=== PATIENT | male | born 1975 | race African-American/Black ===

== ENCOUNTER 2017-06-05 21:10 | Emergency (ER) | payer OTHER ==
[~2017-06-05] VITALS: Ht 165.1 cm; Wt 58.1 kg
[~2017-06-05 21:10] MED LIST: CARV6.25 PO; FERR-26 PO
[2017-06-06 01:30] VITALS: BP 177/109
[2017-06-06] MEDS ORDERED: AZIT250T6 PO (01:44)
--- NOTE | 2017-06-06 01:44 | PHYS DOC ---
Past Medical History Past Medical History: Asthma, Hypertension, Renal Failure, Other Additional Past Medical Histor: Focal glomerulosclerosis, kidney failure 2007 Past Surgical History: Other Additional Past Surgical Histo: "tube in neck"-removed,dialysis shunt right arm ,lft kidney transplant 2009 Alcohol Use: Sober Drug Use: None Adult General Chief Complaint Chief Complaint: COUGH HPI HPI Patient is a 41 year old [f__sex] who presents with [] Review of Systems Review of Systems Constitutional: Denies fever or chills [] Eyes: Denies change in visual acuity, redness, or eye pain [] HENT: Denies nasal congestion or sore throat [] Respiratory: Denies cough or shortness of breath [] Cardiovascular: No additional information not addressed in HPI [] GI: Denies abdominal pain, nausea, vomiting, bloody stools or diarrhea [] : Denies dysuria or hematuria [] Musculoskeletal: Denies back pain or joint pain [] Integument: Denies rash or skin lesions [] Neurologic: Denies headache, focal weakness or sensory changes [] Endocrine: Denies polyuria or polydipsia [] All other systems were reviewed and found to be within normal limits, except as documented in this note. Allergies Allergies Allergies Coded Allergies Type Severity Reaction Last Updated Verified No Known Drug Allergies 05/08/17 No Physical Exam Physical Exam Constitutional: Well developed, well nourished, no acute distress, non-toxic appearance. [] HENT: Normocephalic, atraumatic, bilateral external ears normal, oropharynx moist, no oral exudates, nose normal. [] Eyes: PERRLA, EOMI, conjunctiva normal, no discharge. [] Neck: Normal range of motion, no tenderness, supple, no stridor. [] Cardiovascular:Heart rate regular rhythm, no murmur [] Lungs & Thorax: Bilateral breath sounds clear to auscultation [] Abdomen: Bowel sounds normal, soft, no tenderness, no masses, no pulsatile masses. [] Skin: Warm, dry, no erythema, no rash. [] Back: No tenderness, no CVA tenderness. [] Extremities: No tenderness, no cyanosis, no clubbing, ROM intact, no edema. [] Neurologic: Alert and oriented X 3, normal motor function, normal sensory function, no focal deficits noted. [] Psychologic: Affect normal, judgement normal, mood normal. [] Current Patient Data Vital Signs Vital Signs Date Time Temp Pulse Resp B/P (MAP) Pulse Ox O2 Delivery O2 Flow Rate FiO2 06/05/17 21:28 98.2 108 22 168/116 (133) 95 Room Air 98.2 EKG EKG [] Radiology/Procedures Radiology/Procedures [] Course & Med Decision Making Course & Med Decision Making Pertinent Labs and Imaging studies reviewed. (See chart for details) [] Dragon Disclaimer Dragon Disclaimer This electronic medical record was generated, in whole or in part, using a voice recognition dictation system. Departure Departure Impression: Primary Impression: Atypical pneumonia Disposition: HOME, SELF-CARE Condition: GOOD Referrals: DAVID DUPONT MD (PCP) Patient Instructions: Upper Respiratory Infection, Adult Additional Instructions: Your pulmonary infection with persistent chronic cough appears to be consistent with either viral upper respiratory infection versus possible atypical pneumonia which is also called walking pneumonia. If it's viral it will get better on its own if it's an atypical infection it will respond to Zithromax for which you have been given a prescription. Take Mucinex DM [id number] as needed. Follow-up with your doctor tomorrow and return immediately for new severe or worsening symptoms Scripts Azithromycin (AZITHROMYCIN TABLET) 250 Mg Tablet 1 PKG PO UD, #6 TAB Take 2 pills the first day and one pill a day for the following 4 days Prov: CLEM MENDEZ MD 06/06/17 CLEM MENDEZ MD Jun 06, 2017 01:44
--- NOTE | 2017-06-06 08:43 | RAD ---
EXAM: Chest one view. HISTORY: Cough. COMPARISON: 05/11/2017. FINDINGS: A frontal view of the chest is obtained. There are no confluent infiltrates. Trace pleural effusions are likely present. There is no pneumothorax. The heart is moderately enlarged. Vascular clips are noted in the right upper arm. IMPRESSION: 1. Moderate cardiomegaly. Trace bilateral pleural effusions.
[2017-06-06 09:14] LABS: POTASSIUM ISTAT 3.2 mmol/L (3.5-5.0)
== END 2017-06-06 02:17 | disposition home or self-care (01) ==
LOC: ER 21:10
DX: J18.9 Pneumonia, unspecified organism (principal); J45.909 Unspecified asthma, uncomplicated; I12.9 Hypertensive chronic kidney disease with stage 1 through stage 4 chronic kidney disease, or unspecified chronic kidney disease; N18.9 Chronic kidney disease, unspecified; Z94.0 Kidney transplant status
CPT/HCPCS: 36415; 71010; 80047; 85014; 85018; 99284-25

== ENCOUNTER 2017-12-10 09:00 | Inpatient (IN) | payer OTHER ==
[2017-12-10 10:11] LABS: ADD MAN DIFF? NO
[2017-12-10 10:14] LABS: BASO % 1 % (0-3); EOS # 0.2 x10^3/uL (0.0-0.7); EOS % 3 % (0-3); HEMATOCRIT 36.3 % (39.0-53.0); HEMOGLOBIN 12.1 g/dL (13.0-17.5); LYMPH # 1.5 x10^3/uL (1.0-4.8); LYMPH % 25 % (24-48); MEAN CORPUSCULAR HEMOGLOBIN 32 pg (25-35); MEAN CORPUSCULAR HGB CONC 33 g/dL (31-37); MEAN CORPUSCULAR VOLUME 95 fL (79-100); MONO # 0.6 x10^3/uL (0.0-1.1); MONO % 11 % (0-9); NEUT # 3.7 x10^3uL (1.8-7.7); NEUT % 60 % (31-73); PLATELET COUNT 212 x10^3/uL (140-400); RED BLOOD COUNT 3.82 x10^6/uL (4.30-5.70); RED CELL DISTRIBUTION WIDTH 16.3 % (11.5-14.5); WHITE BLOOD COUNT 6.1 x10^3/uL (4.0-11.0)
[2017-12-10 10:30] LABS: ANION GAP 11 (6-14); BLOOD UREA NITROGEN 67 mg/dL (8-26); BUN/CREATININE RATIO 7 (6-20); CALCIUM 9.5 mg/dL (8.5-10.1); CARBON DIOXIDE 27 mmol/L (21-32); CHLORIDE 101 mmol/L (98-107); GFR 7.1; GLUCOSE 127 mg/dL (70-99); POTASSIUM 3.7 mmol/L (3.5-5.1); SODIUM 139 mmol/L (136-145)
[2017-12-10 10:36] LABS: LACTIC ACID 0.9 mmol/L (0.4-2.0)
[2017-12-10 10:41] LABS: TROPONINI 0.168 ng/mL (0.000-0.055)
[2017-12-10 10:43] LABS: ALBUMIN/GLOBULIN RATIO 0.6 (1.0-1.7); ALK PHOS 209 U/L (46-116); ALT (SGPT) 25 U/L (16-63); AST (SGOT) 28 U/L (15-37); TOTAL BILIRUBIN 0.8 mg/dL (0.2-1.0); TOTAL PROTEIN 8.1 g/dL (6.4-8.2)
[2017-12-10] MEDS: IPRATRPIUM/ALBUTEROL 0.5/2.5MG 3 ML NEBU. NEB ×3 (10:48→19:58)
[2017-12-10] MEDS: guaiFENesin/CODEINE 100mg/10mg 5 ML LIQUID PO (10:56)
[2017-12-10] MEDS ORDERED: ACETAMINOPHEN 325 MG TABLET. PO (11:00)
[2017-12-10] MEDS ORDERED: ONDANSETRON PF 4 MG/2 ML VIAL. IV (11:00)
[2017-12-10 11:18] LABS: NT-PRO BNP > 35000 pg/mL (0-124)
[2017-12-10] MEDS ORDERED: MAGNESIUM SULFATE 2GM 50 ML IV (13:00)
[2017-12-10] MEDS ORDERED: CONTRAST GIVEN. MC (13:15)
[2017-12-10] MEDS: IOHEXOL 300 MG/ML 100ML VIAL. IV (13:26)
[2017-12-10] MEDS ORDERED: BENZOCAINE/MENTHOL LOZENGE. PO (13:30)
[2017-12-10] MEDS: FLUTICASONE 50MCG/NASAL SPRAY 16GM BOTTLE. NS (14:38)
[2017-12-10] MEDS: CHOLECALCIFEROL (VITAMIN D3) 1,000 UNIT TABLET PO (14:38)
[2017-12-10] MEDS: AZITHROMYCIN 250 MG TABLET. PO (14:39)
[2017-12-10] MEDS: LISINOPRIL 20 MG TABLET PO (14:41)
[2017-12-10] MEDS: amLODIPine BESYLATE 5 MG TABLET PO (14:41)
[2017-12-10 14:48] LABS: TROPONINI 0.161 ng/mL (0.000-0.055)
[2017-12-10] MEDS: CALCIUM ACETATE 667 MG CAPSULE PO (17:23)
[2017-12-10] MEDS: CARVEDILOL 12.5 MG TABLET. PO (17:23)
[2017-12-10 17:27] LABS: TROPONINI 0.162 ng/mL (0.000-0.055)
[2017-12-10] MEDS: LACTOBACILLUS RHAMNOSUS GG 1 CAPSULE. PO (20:40)
[2017-12-11] MEDS: ONDANSETRON ODT 4 MG TAB.RAPDIS. PO (02:42)
[2017-12-11 07:32] LABS: ALBUMIN 2.7 g/dL (3.4-5.0); ANION GAP 9 (6-14); BLOOD UREA NITROGEN 73 mg/dL (8-26); CALCIUM 8.9 mg/dL (8.5-10.1); CARBON DIOXIDE 25 mmol/L (21-32); CHLORIDE 102 mmol/L (98-107); CREATININE 11.1 mg/dL (0.7-1.3); GFR 6.3; GLUCOSE 98 mg/dL (70-99); MAGNESIUM 2.4 mg/dL (1.8-2.4); PHOSPHORUS 7.5 mg/dL (2.6-4.7); SODIUM 136 mmol/L (136-145)
[2017-12-11] MEDS: IPRATRPIUM/ALBUTEROL 0.5/2.5MG 3 ML NEBU. NEB ×4 (08:01→20:11)
[2017-12-11] MEDS: CHOLECALCIFEROL (VITAMIN D3) 1,000 UNIT TABLET PO (08:16)
[2017-12-11] MEDS: CALCIUM ACETATE 667 MG CAPSULE PO ×3 (08:16→20:39)
[2017-12-11] MEDS: LACTOBACILLUS RHAMNOSUS GG 1 CAPSULE. PO ×2 (08:16→20:39)
[2017-12-11] MEDS: amLODIPine BESYLATE 5 MG TABLET PO (08:17)
[2017-12-11] MEDS: LISINOPRIL 20 MG TABLET PO (08:17)
[2017-12-11] MEDS: CARVEDILOL 12.5 MG TABLET. PO ×2 (08:18→20:39)
[2017-12-11] MEDS: FLUTICASONE 50MCG/NASAL SPRAY 16GM BOTTLE. NS (08:18)
[2017-12-11] MEDS: AZITHROMYCIN 250 MG TABLET. PO (08:20)
[2017-12-11 08:21] LABS: HEMOGLOBIN 11.3 g/dL (13.0-17.5)
[2017-12-11] MEDS ORDERED: IV NORMAL SALINE 1000ML BAG 1,000 ML IV ×2 (15:30)
[2017-12-11] MEDS ORDERED: DIALYSIS PATIENT. MC ×2 (17:15)
[2017-12-12 04:31] LABS: ALBUMIN 2.6 g/dL (3.4-5.0); ANION GAP 6 (6-14); CALCIUM 8.7 mg/dL (8.5-10.1); CARBON DIOXIDE 30 mmol/L (21-32); CHLORIDE 103 mmol/L (98-107); CREATININE 7.2 mg/dL (0.7-1.3); GFR 10.3; GLUCOSE 115 mg/dL (70-99); MAGNESIUM 2.2 mg/dL (1.8-2.4); PHOSPHORUS 5.5 mg/dL (2.6-4.7); POTASSIUM 4.4 mmol/L (3.5-5.1); SODIUM 139 mmol/L (136-145)
[2017-12-12 04:32] LABS: BLOOD UREA NITROGEN 40 mg/dL (8-26)
[2017-12-12] MEDS: IPRATRPIUM/ALBUTEROL 0.5/2.5MG 3 ML NEBU. NEB ×4 (07:31→20:26)
[2017-12-12] MEDS: CALCIUM ACETATE 667 MG CAPSULE PO ×3 (08:38→16:36)
[2017-12-12] MEDS: LISINOPRIL 20 MG TABLET PO (08:38)
[2017-12-12] MEDS: LACTOBACILLUS RHAMNOSUS GG 1 CAPSULE. PO ×2 (08:38→21:40)
[2017-12-12] MEDS: CHOLECALCIFEROL (VITAMIN D3) 1,000 UNIT TABLET PO (08:39)
[2017-12-12] MEDS: amLODIPine BESYLATE 5 MG TABLET PO (08:39)
[2017-12-12] MEDS: AZITHROMYCIN 250 MG TABLET. PO (08:39)
[2017-12-12] MEDS: CARVEDILOL 12.5 MG TABLET. PO ×2 (08:39→16:36)
[2017-12-12] MEDS: FLUTICASONE 50MCG/NASAL SPRAY 16GM BOTTLE. NS (08:41)
[2017-12-12] MEDS: methylPREDNISolone SOD SUCC PF 125 MG/2 ML VIAL. IV ×2 (17:06→21:40)
[2017-12-13 05:28] LABS: ALBUMIN 2.7 g/dL (3.4-5.0); ANION GAP 9 (6-14); BLOOD UREA NITROGEN 65 mg/dL (8-26); CALCIUM 9.7 mg/dL (8.5-10.1); CARBON DIOXIDE 27 mmol/L (21-32); CHLORIDE 96 mmol/L (98-107); CREATININE 9.2 mg/dL (0.7-1.3); GFR 7.8; GLUCOSE 178 mg/dL (70-99); MAGNESIUM 2.1 mg/dL (1.8-2.4); PHOSPHORUS 4.9 mg/dL (2.6-4.7); POTASSIUM 4.7 mmol/L (3.5-5.1); SODIUM 132 mmol/L (136-145)
[2017-12-13] MEDS: methylPREDNISolone SOD SUCC PF 125 MG/2 ML VIAL. IV ×3 (06:02→20:47)
[2017-12-13] MEDS: IPRATRPIUM/ALBUTEROL 0.5/2.5MG 3 ML NEBU. NEB ×4 (06:56→19:50)
[2017-12-13] MEDS: CARVEDILOL 12.5 MG TABLET. PO ×2 (08:00→17:29)
[2017-12-13] MEDS: CHOLECALCIFEROL (VITAMIN D3) 1,000 UNIT TABLET PO (08:28)
[2017-12-13] MEDS: CALCIUM ACETATE 667 MG CAPSULE PO ×3 (08:28→17:28)
[2017-12-13] MEDS: LACTOBACILLUS RHAMNOSUS GG 1 CAPSULE. PO ×2 (08:29→20:47)
[2017-12-13] MEDS: FLUTICASONE 50MCG/NASAL SPRAY 16GM BOTTLE. NS (08:29)
[2017-12-13] MEDS ORDERED: IV NORMAL SALINE 1000ML BAG 1,000 ML IV ×2 (09:00)
[2017-12-13] MEDS ORDERED: DIALYSIS PATIENT. MC ×2 (12:30)
[2017-12-13] MEDS: AZITHROMYCIN 250 MG TABLET. PO (14:05)
[2017-12-13] MEDS: amLODIPine BESYLATE 5 MG TABLET PO (14:06)
[2017-12-13] MEDS: LISINOPRIL 20 MG TABLET PO (14:07)
[2017-12-14] MEDS: methylPREDNISolone SOD SUCC PF 125 MG/2 ML VIAL. IV ×3 (05:20→21:19)
[2017-12-14 05:58] LABS: ALBUMIN 2.8 g/dL (3.4-5.0); ANION GAP 10 (6-14); BLOOD UREA NITROGEN 59 mg/dL (8-26); CALCIUM 8.7 mg/dL (8.5-10.1); CARBON DIOXIDE 28 mmol/L (21-32); CHLORIDE 97 mmol/L (98-107); CREATININE 6.9 mg/dL (0.7-1.3); GFR 10.8; GLUCOSE 139 mg/dL (70-99); MAGNESIUM 2.1 mg/dL (1.8-2.4); PHOSPHORUS 4.8 mg/dL (2.6-4.7); POTASSIUM 4.9 mmol/L (3.5-5.1); SODIUM 135 mmol/L (136-145)
[2017-12-14] MEDS: IPRATRPIUM/ALBUTEROL 0.5/2.5MG 3 ML NEBU. NEB ×4 (07:06→19:56)
[2017-12-14] MEDS: CHOLECALCIFEROL (VITAMIN D3) 1,000 UNIT TABLET PO (08:55)
[2017-12-14] MEDS: CARVEDILOL 12.5 MG TABLET. PO ×2 (08:56→17:36)
[2017-12-14] MEDS: AZITHROMYCIN 250 MG TABLET. PO (08:56)
[2017-12-14] MEDS: LACTOBACILLUS RHAMNOSUS GG 1 CAPSULE. PO ×2 (08:56→21:18)
[2017-12-14] MEDS: CALCIUM ACETATE 667 MG CAPSULE PO ×3 (08:56→17:33)
[2017-12-14] MEDS: LISINOPRIL 20 MG TABLET PO (08:57)
[2017-12-14] MEDS: amLODIPine BESYLATE 5 MG TABLET PO (08:57)
[2017-12-14] MEDS: FLUTICASONE 50MCG/NASAL SPRAY 16GM BOTTLE. NS (09:03)
[2017-12-15 04:53] LABS: ALBUMIN 2.7 g/dL (3.4-5.0); ANION GAP 10 (6-14); BLOOD UREA NITROGEN 83 mg/dL (8-26); CALCIUM 8.7 mg/dL (8.5-10.1); CARBON DIOXIDE 25 mmol/L (21-32); CHLORIDE 93 mmol/L (98-107); CREATININE 8.2 mg/dL (0.7-1.3); GFR 8.9; GLUCOSE 153 mg/dL (70-99); PHOSPHORUS 5.7 mg/dL (2.6-4.7); POTASSIUM 5.1 mmol/L (3.5-5.1); SODIUM 128 mmol/L (136-145)
[2017-12-15] MEDS: methylPREDNISolone SOD SUCC PF 125 MG/2 ML VIAL. IV ×3 (06:16→21:08)
[2017-12-15] MEDS: CARVEDILOL 12.5 MG TABLET. PO ×2 (08:00→17:49)
[2017-12-15] MEDS: CHOLECALCIFEROL (VITAMIN D3) 1,000 UNIT TABLET PO (08:49)
[2017-12-15] MEDS: CALCIUM ACETATE 667 MG CAPSULE PO ×3 (08:49→17:49)
[2017-12-15] MEDS: LACTOBACILLUS RHAMNOSUS GG 1 CAPSULE. PO ×2 (08:50→21:08)
[2017-12-15] MEDS: FLUTICASONE 50MCG/NASAL SPRAY 16GM BOTTLE. NS (08:50)
[2017-12-15] MEDS: amLODIPine BESYLATE 5 MG TABLET PO (09:00)
[2017-12-15] MEDS: LISINOPRIL 20 MG TABLET PO (09:00)
[2017-12-15] MEDS: ALBUTEROL SULFATE 2.5 MG/3 ML NEBU. NEB (09:16)
[2017-12-15] MEDS: IPRATRPIUM/ALBUTEROL 0.5/2.5MG 3 ML NEBU. NEB ×3 (12:39→20:35)
[2017-12-15] MEDS ORDERED: IV NORMAL SALINE 1000ML BAG 1,000 ML IV ×2 (13:54)
[2017-12-15] MEDS ORDERED: DIALYSIS PATIENT. MC ×2 (14:00)
[2017-12-15 17:39] LABS: POC GLUCOSE 121 mg/dL (70-99)
[2017-12-15 21:14] LABS: POC GLUCOSE 169 mg/dL (70-99)
[2017-12-16 05:43] LABS: ALBUMIN 2.8 g/dL (3.4-5.0); ANION GAP 9 (6-14); BLOOD UREA NITROGEN 49 mg/dL (8-26); CALCIUM 8.6 mg/dL (8.5-10.1); CARBON DIOXIDE 28 mmol/L (21-32); CHLORIDE 95 mmol/L (98-107); CREATININE 5.6 mg/dL (0.7-1.3); GFR 13.8; GLUCOSE 145 mg/dL (70-99); PHOSPHORUS 4.1 mg/dL (2.6-4.7); POTASSIUM 4.1 mmol/L (3.5-5.1); SODIUM 132 mmol/L (136-145)
[2017-12-16] MEDS: methylPREDNISolone SOD SUCC PF 125 MG/2 ML VIAL. IV (06:30)
[2017-12-16] MEDS: IPRATRPIUM/ALBUTEROL 0.5/2.5MG 3 ML NEBU. NEB ×2 (07:42→11:54)
[2017-12-16] MEDS: LACTOBACILLUS RHAMNOSUS GG 1 CAPSULE. PO (08:25)
[2017-12-16] MEDS: CALCIUM ACETATE 667 MG CAPSULE PO ×2 (08:25→12:14)
[2017-12-16] MEDS: LISINOPRIL 20 MG TABLET PO (08:26)
[2017-12-16] MEDS: CARVEDILOL 12.5 MG TABLET. PO (08:26)
[2017-12-16] MEDS: CHOLECALCIFEROL (VITAMIN D3) 1,000 UNIT TABLET PO (08:26)
[2017-12-16] MEDS: amLODIPine BESYLATE 5 MG TABLET PO (08:26)
[2017-12-16] MEDS: FLUTICASONE 50MCG/NASAL SPRAY 16GM BOTTLE. NS (08:27)
== END 2017-12-16 16:00 | disposition home or self-care (01) | DRG 291 ==
LOC: ER 09:00 → 2 NORTH 10:51
PROC: 5A1D70Z Performance of Urinary Filtration, Intermittent, Less than 6 Hours Per Day (ICD-10-PCS; principal; 2017-12-11)
PROC: 5A1D70Z Performance of Urinary Filtration, Intermittent, Less than 6 Hours Per Day (ICD-10-PCS; 2017-12-13)
PROC: 5A1D70Z Performance of Urinary Filtration, Intermittent, Less than 6 Hours Per Day (ICD-10-PCS; 2017-12-15)
DX: I13.2 Hypertensive heart and chronic kidney disease with heart failure and with stage 5 chronic kidney disease, or end stage renal disease (principal); I50.21 Acute systolic (congestive) heart failure; I31.3 Pericardial effusion (noninflammatory); I42.9 Cardiomyopathy, unspecified; N18.6 End stage renal disease; Z94.0 Kidney transplant status; J01.90 Acute sinusitis, unspecified; J40 Bronchitis, not specified as acute or chronic; J45.909 Unspecified asthma, uncomplicated; E21.3 Hyperparathyroidism, unspecified; Z79.899 Other long term (current) drug therapy; Z91.19 Patient's noncompliance with other medical treatment and regimen; Z99.2 Dependence on renal dialysis
CPT/HCPCS: 36415; 70491; 71045; 71260; 80053; 80069; 82962; 83605; 83735; 83880; 84484; 85018; 85025; 87040; 92610-GN; 93005; 93306; 94640; 94760; 99285; 99285-25; J1250; J2930; J7613; J7620; Q0144; Q0162; Q9967

== ENCOUNTER 2018-09-02 19:45 | Inpatient (IN) | payer OTHER ==
[~2018-09-02] VITALS: Ht 165.1 cm; Wt 65.8 kg
[~2018-09-02 19:45] MED LIST changes: +ALBU2.5V8 INH; +AMLO5TAB10 PO; +AZIT250T6 PO; +CALC667T PO; +CARV25TA2 PO; +CHOL10003 PO; -FERR-26 PO; +FERR325T14 PO; +LISI-334 PO; +PRED-220 PO; +VIT1TABL PO
[2018-09-02] MEDS ORDERED: ONDANSETRON PF 4 MG/2 ML VIAL. IV ONE (20:15)
[2018-09-02] MEDS ORDERED: fentaNYL PF VIAL 100 MCG/2 ML VIAL IV ONE (20:15)
[2018-09-02 20:33] LABS: BASO % 1 % (0-3); EOS # 0.1 x10^3/uL (0.0-0.7); EOS % 2 % (0-3); HEMATOCRIT 36.6 % (39.0-53.0); HEMOGLOBIN 12.1 g/dL (13.0-17.5); LYMPH # 1.2 x10^3/uL (1.0-4.8); LYMPH % 27 % (24-48); MEAN CORPUSCULAR HEMOGLOBIN 32 pg (25-35); MEAN CORPUSCULAR HGB CONC 33 g/dL (31-37); MEAN CORPUSCULAR VOLUME 96 fL (79-100); MONO # 0.4 x10^3/uL (0.0-1.1); MONO % 10 % (0-9); NEUT # 2.7 x10^3uL (1.8-7.7); NEUT % 60 % (31-73); PLATELET COUNT 133 x10^3/uL (140-400); RED CELL DISTRIBUTION WIDTH 14.2 % (11.5-14.5); WHITE BLOOD COUNT 4.5 x10^3/uL (4.0-11.0)
[2018-09-02 20:50] LABS: ALBUMIN 3.5 g/dL (3.4-5.0); CALCIUM 10.3 mg/dL (8.5-10.1); CREATININE 19.3 mg/dL (0.7-1.3); GFR 3.3; TOTAL BILIRUBIN 0.6 mg/dL (0.2-1.0); TOTAL PROTEIN 7.1 g/dL (6.4-8.2)
[2018-09-02 20:54] LABS: POTASSIUM 6.2 mmol/L (3.5-5.1)
[2018-09-02 21:03] LABS: INFLUENZA A PATIENT NEGATIVE (NEGATIVE); INFLUENZA B PATIENT NEGATIVE (NEGATIVE)
[2018-09-02] MEDS ORDERED: CONTRAST GIVEN. MC PRN (21:15)
[2018-09-02] MEDS ORDERED: IOHEXOL 300 MG/ML 100ML VIAL. IV ONE (21:30)
--- NOTE | 2018-09-02 21:33 | RAD ---
PQRS Compliance Statement: One or more of the following individualized dose reduction techniques were utilized for this examination: 1. Automated exposure control 2. Adjustment of the mA and/or kV according to patient size 3. Use of iterative reconstruction technique CT ABD PELV W/ IV CONTRST ONLY Clinical Indication: llq pain, hx of dialysis. r/o diverticulitis. ESRD - PATIENT TO HAVE DIALYSIS TOMORROW Comparison: None. Technique: Helical CT imaging of the abdomen and pelvis is performed after 60 cc of Omnipaque 300 IV contrast. Oral contrast not given. Findings: Minimal atelectasis or scarring in the lung bases. There is cardiomegaly. Mild pericardial effusion. There is moderate abdominal and pelvic ascites. Enhancement of the gallbladder wall may be secondary to the ascites. There is no wall thickening. Liver, spleen, pancreas, adrenal glands, and abdominal aorta caliber are normal. The [place] kidneys are atrophic and contain small cysts. Stomach unremarkable. No dilated small bowel. There is right lower quadrant transplant kidney which is enhancing. No hydronephrosis is seen. No colon wall thickening is identified. There is no appreciable colon diverticulosis. The appendix has air in its lumen. Urinary bladder is mostly decompressed, accentuating the wall thickness. Small Schmorl's nodes inferior endplates of the lumbar spine. Mild anasarca. IMPRESSION: 1. Moderate abdominal and pelvic ascites. Mild anasarca. 2. [place] kidneys are atrophic. Right lower quadrant transplant kidney without hydronephrosis. 3. Cardiomegaly. Mild pericardial effusion. Electronically signed by: Gilbert Goins MD (09/02/2018 9:30 PM) [facility]
[2018-09-02] MEDS ORDERED: CALCIUM GLUCONATE 1,000 MG/10 ML VIAL. IVP ONE (22:00)
[2018-09-02] MEDS ORDERED: INSULIN REGULAR 100 UNIT/ML 3ML VIAL. IV ONE (22:00)
[2018-09-02] MEDS ORDERED: SODIUM POLYSTYRENE SULFONATE 15 GM/60 ML ORAL.SUSP. PO ONE (22:00)
[2018-09-02] MEDS ORDERED: DEXTROSE 50% 25 GM / 50ML DISP.SYRIN. IV ONE (22:00)
[2018-09-02] MEDS ORDERED: SODIUM BICARB ADULT 8.4% 50 MEQ/50 ML DISP.SYRIN. IV ONE (22:00)
--- NOTE | 2018-09-02 22:10 | RAD ---
Examination: PORTABLE CHEST 1V History: VOMITING, SOA Comparison/Correlation: 12/10/2017 chest x-ray exam Findings: Portable upright frontal view of the chest was obtained. Cardiomegaly is present. Pulmonary vasculature are normal. No infiltrate or effusion. No pneumothorax. Impression: No change. Cardiomegaly is again seen. Electronically signed by: Puneet Gonzáles MD (09/02/2018 10:07 PM) [facility]
[2018-09-02] MEDS ORDERED: MORPHINE SULFATE 4 MG/ML VIAL. IV PRN (22:15)
[2018-09-02] MEDS ORDERED: ONDANSETRON PF 4 MG/2 ML VIAL. IV PRN (22:15)
[2018-09-02 23:15] VITALS: BP 168/110
--- NOTE | 2018-09-02 23:15 | NUR ---
The patient, ANICETO BROWN JR, 42 y/o, M admitted by SHAHBAZ HARTLEY III, DO, was given written information regarding hospital policies, unit procedures and contact persons. Valuables were checked and left with patient. Home medications were recorded, bagged, and sent to pharmacy.
--- NOTE | 2018-09-03 00:13 | PHYS DOC ---
Past Medical History Past Medical History: Asthma, Hypertension, Renal Failure, Other Additional Past Medical Histor: Focal glomerulosclerosis, kidney failure 2008 Past Surgical History: Other Additional Past Surgical Histo: "tube in neck"-removed,dialysis shunt right arm ,lft kidney transplant 2009 Alcohol Use: Sober Drug Use: None Adult General Chief Complaint Chief Complaint: NAUSEA/VOMITING/DIARRHA HPI HPI Patient is a 42 year old male presenting with chief complaint of vomiting and diarrhea patient's abdominal pain vomiting and diarrhea for 5 days patient states that he missed dialysis on Monday because of it and his pain is more in the left feels a cramping is been unable to keep anything down no chest pain no shortness of breath mild headache. Symptoms are moderate worsening with time Review of Systems Review of Systems Constitutional: Denies fever or chills [] Eyes: Denies change in visual acuity, redness, or eye pain [] HENT: Denies nasal congestion or sore throat [] Respiratory: Denies cough or shortness of breath [] Cardiovascular: No additional information not addressed in HPI [] GI: Denies abdominal pain, nausea, vomiting, bloody stools or diarrhea [] : Denies dysuria or hematuria [] Musculoskeletal: Denies back pain or joint pain [] Integument: Denies rash or skin lesions [] Neurologic: Denies headache, focal weakness or sensory changes [] Endocrine: Denies polyuria or polydipsia [] All other systems were reviewed and found to be within normal limits, except as documented in this note. Current Medications Current Medications Current Medications Medications (Trade) Dose Ordered Sig/Olivia Start Time Stop Time Status Last Admin Dose Admin Calcium Gluconate (Calcium Gluconate) 1,000 mg 1X ONCE 09/02/18 22:00 09/02/18 22:01 DC 09/02/18 22:11 1,000 MG Dextrose (Dextrose 50%-Water Syringe) 25 gm 1X ONCE 09/02/18 22:00 09/02/18 22:01 DC 09/02/18 22:11 25 GM Fentanyl Citrate (Fentanyl 2ml Vial) 50 mcg 1X ONCE 09/02/18 20:15 09/02/18 20:16 DC 09/02/18 20:34 50 MCG Info (CONTRAST GIVEN -- Rx MONITORING) 1 each PRN DAILY PRN 09/02/18 21:15 09/04/18 21:14 Insulin Human Regular (HumuLIN R VIAL) 10 unit 1X ONCE 09/02/18 22:00 09/02/18 22:01 DC 09/02/18 22:12 10 UNIT Iohexol (Omnipaque 300 Mg/ml) 60 ml 1X ONCE 09/02/18 21:30 09/02/18 21:31 DC 09/02/18 21:15 60 ML Ondansetron HCl (Zofran) 4 mg 1X ONCE 09/02/18 20:15 09/02/18 20:16 DC 09/02/18 20:33 4 MG Sodium Polystyrene Sulfonate (Kayexalate) 30 gm 1X ONCE 09/02/18 22:00 09/02/18 22:01 DC 09/02/18 22:11 30 GM Sodium Bicarbonate (Sodium Bicarb Adult 8.4% Syr) 50 meq 1X ONCE 09/02/18 22:00 09/02/18 22:01 DC 09/02/18 22:11 50 MEQ Allergies Allergies Allergies Coded Allergies Type Severity Reaction Last Updated Verified No Known Drug Allergies 05/08/17 No Physical Exam Physical Exam Constitutional: Well developed, well nourished, no acute distress, non-toxic appearance. [] HENT: Normocephalic, atraumatic, bilateral external ears normal, oropharynx moist, no oral exudates, nose normal. [] Eyes: PERRLA, EOMI, conjunctiva normal, no discharge. [] Neck: Normal range of motion, no tenderness, supple, no stridor. [] neck veins mildly dlistended Cardiovascular:Heart rate regular rhythm, no murmur [] Lungs & Thorax: Bilateral breath sounds clear to auscultation [] Abdomen: Bowel sounds normal, soft, epigastric and llq ttp noted. no masses, no pulsatile masses. [] Skin: Warm, dry, no erythema, no rash. [] Back: No tenderness, no CVA tenderness. [] Extremities: No tenderness, no cyanosis, no clubbing, ROM intact, one plus edema Neurologic: Alert and oriented X 3, normal motor function, normal sensory function, no focal deficits noted. [] Psychologic: Affect normal, judgement normal, mood normal. [] Current Patient Data Vital Signs Vital Signs Date Time Temp Pulse Resp B/P (MAP) Pulse Ox O2 Delivery O2 Flow Rate FiO2 09/02/18 22:00 82 20 177/112 (133) 95 Room Air 09/02/18 19:50 98.2 98.2 Lab Values Laboratory Tests Test 09/02/18 20:25 White Blood Count 4.5 x10^3/uL (4.0-11.0) Red Blood Count 3.80 x10^6/uL (4.30-5.70) L Hemoglobin 12.1 g/dL (13.0-17.5) L Hematocrit 36.6 % (39.0-53.0) L Mean Corpuscular Volume 96 fL (79-100) Mean Corpuscular Hemoglobin 32 pg (25-35) Mean Corpuscular Hemoglobin Concent 33 g/dL (31-37) Red Cell Distribution Width 14.2 % (11.5-14.5) Platelet Count 133 x10^3/uL (140-400) L Neutrophils (%) (Auto) 60 % (31-73) Lymphocytes (%) (Auto) 27 % (24-48) Monocytes (%) (Auto) 10 % (0-9) H Eosinophils (%) (Auto) 2 % (0-3) Basophils (%) (Auto) 1 % (0-3) Neutrophils # (Auto) 2.7 x10^3uL (1.8-7.7) Lymphocytes # (Auto) 1.2 x10^3/uL (1.0-4.8) Monocytes # (Auto) 0.4 x10^3/uL (0.0-1.1) Eosinophils # (Auto) 0.1 x10^3/uL (0.0-0.7) Basophils # (Auto) 0.0 x10^3/uL (0.0-0.2) Sodium Level 137 mmol/L (136-145) Potassium Level 6.2 mmol/L (3.5-5.1) *H Chloride Level 99 mmol/L (98-107) Carbon Dioxide Level 20 mmol/L (21-32) L Anion Gap 18 (6-14) H Blood Urea Nitrogen 103 mg/dL (8-26) H Creatinine 19.3 mg/dL (0.7-1.3) H Estimated GFR (Cockcroft-Gault) 3.3 BUN/Creatinine Ratio 5 (6-20) L Glucose Level 84 mg/dL (70-99) Calcium Level 10.3 mg/dL (8.5-10.1) H Magnesium Level 2.5 mg/dL (1.8-2.4) H Total Bilirubin 0.6 mg/dL (0.2-1.0) Aspartate Amino Transferase (AST) 22 U/L (15-37) Alanine Aminotransferase (ALT) 30 U/L (16-63) Alkaline Phosphatase 64 U/L (46-116) Troponin I Quantitative 0.080 ng/mL (0.000-0.055) Total Protein 7.1 g/dL (6.4-8.2) Albumin 3.5 g/dL (3.4-5.0) Albumin/Globulin Ratio 1.0 (1.0-1.7) Lipase 199 U/L (73-393) Influenza Type A Antigen Negative (NEGATIVE) Influenza Type B Antigen Negative (NEGATIVE) Laboratory Tests 09/02/18 20:25 Laboratory Tests 09/02/18 20:25 EKG EKG []EKG shows normal sinus rhythm rate of 82 QTC is 485 the does appear mildly prolonged T waves are not peaked. No STEMI Radiology/Procedures Radiology/Procedures [] Impressions: IMPRESSION: 1. Moderate abdominal and pelvic ascites. Mild anasarca. 2. [place] kidneys are atrophic. Right lower quadrant transplant kidney without hydronephrosis. 3. Cardiomegaly. Mild pericardial effusion. Electronically signed by: Gilbert Goins MD (09/02/2018 9:30 PM) [facility] DICTATED and SIGNED BY: GILBERT GOINS MD DATE: 09/02/182121 Impression: No change. Cardiomegaly is again seen. Electronically signed by: Puneet Eden MD (09/02/2018 10:07 PM) [facility] DICTATED and SIGNED BY: PUNEET EDEN MD DATE: 09/02/182206 Course & Med Decision Making Course & Med Decision Making Pertinent Labs and Imaging studies reviewed. (See chart for details) 42-year-old male with a history of end-stage renal disease on hemodialysis Monday other medical problems as noted above presenting with vomiting diarrhea abdominal pain 5 days difficulty to keep things down missed dialysis on Monday potassium mildly elevated QTc [address] CT scan as noted above negative acute no definite abnormality seen. Patient is still vomiting in the emergency room he may have mild uremia potassium was elevated due to the prolonged QT we did give some treatment for that and he'll be admitted overnight for observation as well as treatment of his potassium and dialysis under observation tomorrow. I noted patient be admitted to the hospitalist service on recent admission and primary on arrival to the er was listed as jannaaliluan and so I spoke with Dr. Bridges at 10 PM for admission. later on , while charting i noted cahnge in primary on the registration sheet. unclear who is the primary, our nursing staff called upstairs and asked to coordinate this for the morning. Dragon Disclaimer Dragon Disclaimer This electronic medical record was generated, in whole or in part, using a voice recognition dictation system. Departure Departure Impression: Primary Impression: Hyperkalemia Additional Impression: Vomiting Disposition: ADMITTED INPATIENT Admitting Physician: Felicia Rodriguez Condition: STABLE Referrals: CLEM ULNA MD (PCP) Problem Qualifiers VANESSA MERCHANT MD Sep 03, 2018 00:13
[2018-09-03] MEDS ORDERED: PROCHLORPERAZINE 10 MG/2 ML VIAL. IV PRN (00:15)
[2018-09-03 03:00] VITALS: BP 160/111
[2018-09-03 07:00] VITALS: BP 165/116
[2018-09-03] MEDS ORDERED: IV NORMAL SALINE 1000ML BAG 1,000 ML IV PRN ×2 (07:30)
[2018-09-03] MEDS ORDERED: ALBUMIN HUMAN 25% 200 ML IV PRN (07:30)
[2018-09-03] MEDS ORDERED: 0.9 % SODIUM CHLORIDE 10 ML DISP.SYRIN. IV PRN (07:30)
[2018-09-03] MEDS ORDERED: DIALYSIS PATIENT. MC PRN ×2 (07:30)
[2018-09-03 08:01] LABS: CALCIUM 9.7 mg/dL (8.5-10.1); CREATININE 19.1 mg/dL (0.7-1.3); GFR 3.3
[2018-09-03 08:04] LABS: POTASSIUM 6.9 mmol/L (3.5-5.1)
[2018-09-03] MEDS ORDERED: diphenhydrAMINE 50 MG/ML VIAL IM ONE (09:30)
--- NOTE | 2018-09-03 14:01 | PDOC2 ---
CONSULT Date of Consult Date of Consult DATE: 09/03/18 TIME: 13:54 Reason for Consult Reason for Consult: ESRD Source Source: Chart review, Patient History of Present Illness Reason for Visit: Pt is 42-year-old AA male with ESRD on hemodialysis Monday other medical problems presented to ED with vomiting diarrhea abdominal pain 5 days difficulty to keep things down missed dialysis on Monday potassium mildly elevated QTc [address] scan done negative acute no definite abnormality seen. He was vomiting in the emergency room admitted overnight for observation Was Dialyzed this am for Hyperkalemia and Missed HD on monday Tolerating well, without any complaints Past Medical History Cardiovascular: HTN Renal/: Chronic renal insuff, Acute renal failure, Chronic renal failure Endocrine: Hyperparathyroidism Past Surgical History Past Surgical History: Other Social History ALCOHOL: none Drugs: None Lives: with Family Current Medications Current Medications Current Medications Ondansetron HCl (Zofran) 4 mg 1X ONCE IV Last administered on 09/02/18at 20:33 ; Start 09/02/18 at 20:15; Stop 09/02/18 at 20:16; Status DC Fentanyl Citrate (Fentanyl 2ml Vial) 50 mcg 1X ONCE IV Last administered on at 20:34; Start 09/02/18 at 20:15; Stop 09/02/18 at 20:16; Status DC Iohexol (Omnipaque 300 Mg/ml) 60 ml 1X ONCE IV Last administered on 09/02/18at 21:15; Start 09/02/18 at 21:30; Stop 09/02/18 at 21:31; Status DC Info (CONTRAST GIVEN -- Rx MONITORING) 1 each PRN DAILY PRN MC SEE COMMENTS; Start 09/02/18 at 21:15; Stop 09/04/18 at 21:14 Calcium Gluconate (Calcium Gluconate) 1,000 mg 1X ONCE IVP Last administered on 09/02/18at 22:11; Start 09/02/18 at 22:00; Stop 09/02/18 at 22:01; Status DC Sodium Bicarbonate (Sodium Bicarb Adult 8.4% Syr) 50 meq 1X ONCE IV Last administered on 09/02/18at 22:11; Start 09/02/18 at 22:00; Stop 09/02/18 at 22:01 ; Status DC Dextrose (Dextrose 50%-Water Syringe) 25 gm 1X ONCE IV Last administered on at 22:11; Start 09/02/18 at 22:00; Stop 09/02/18 at 22:01; Status DC Insulin Human Regular (HumuLIN R VIAL) 10 unit 1X ONCE IV Last administered on 09/02/18at 22:12; Start 09/02/18 at 22:00; Stop 09/02/18 at 22:01; Status DC Sodium Polystyrene Sulfonate (Kayexalate) 30 gm 1X ONCE PO Last administered on 09/02/18at 22:11; Start 09/02/18 at 22:00; Stop 09/02/18 at 22:01; Status DC Ondansetron HCl (Zofran) 4 mg PRN Q8HRS PRN IV NAUSEA/VOMITING 1ST CHOICE; Start 09/02/18 at 22:15; Stop 09/03/18 at 00:11; Status DC Morphine Sulfate (Morphine Sulfate) 4 mg PRN Q2HR PRN IV SEVERE PAIN; Start at 22:15; Stop 09/03/18 at 22:14 Prochlorperazine Edisylate (Compazine) 10 mg PRN Q6HRS PRN IV VOMITING 1ST CHOICE; Start 09/03/18 at 00:15 Sodium Chloride 1,000 ml @ 1,000 mls/hr Q1H PRN IV hypotension; Start 09/03/18 at 07:30; Stop 09/03/18 at 18:00 Albumin Human 200 ml @ 200 mls/hr 1X PRN PRN IV Hypotension; Start 09/03/18 at 07:30; Stop 09/03/18 at 13:29; Status DC Heparin Sodium (Porcine) (Heparin Sodium) 2,000 unit 1X PRN PRN INT CAT DIRECTOR OF INSTITUTIONAL RESEARCH catheter pack; Start 09/03/18 at 07:30; Stop 09/03/18 at 18:00 Sodium Chloride (Normal Saline Flush) 10 ml 1X PRN PRN IV DIRECTOR [employer]STITUTION[employer] catheter pack; Start 09/03/18 at 07:30; Stop 09/03/18 at 18:00 Sodium Chloride 1,000 ml @ 400 mls/hr Q2H30M PRN IV PATENCY; Start 09/03/18 at 07:30; Stop 09/03/18 at 18:00 Info (PHARMACY MONITORING -- do not chart) 1 each PRN DAILY PRN MC SEE COMMENTS ; Start 09/03/18 at 07:30; Status UNV Info (PHARMACY MONITORING -- do not chart) 1 each PRN DAILY PRN MC SEE COMMENTS ; Start 09/03/18 at 07:30 Diphenhydramine HCl (Benadryl) 50 mg 1X ONCE IM Last administered on at 09:30; Start 09/03/18 at 09:30; Stop 09/03/18 at 09:31; Status DC Active Scripts Active Reported Carvedilol 25 Mg Tablet 1 Tab PO BID Amlodipine Besylate 5 Mg Tablet 5 Mg PO DAILY Lisinopril 20 Mg Tablet 1 Tab PO DAILY Calcium Acetate 667 Mg Tablet 667 Mg PO TIDWMEALS Allergies Allergies: Coded Allergies: No Known Drug Allergies (Unverified , 05/08/17) ROS Review of System As per HPI Physical Exam Physical Exam GEN: NAD HEEN: Om moist NECK Supple CVS: RRR RESP: CTA, Non labored GI: BS + ve, NO Bruit, Non Tender, Non Distended : No Simms Neuro- Grossly Normal Skin No rash Vital Signs Vital Signs Date Time Temp Pulse Resp B/P (MAP) Pulse Ox O2 Delivery O2 Flow Rate FiO2 09/03/18 08:15 Room Air 09/03/18 07:00 98.4 85 18 165/116 (132) 96 1.0 98.4 Assessment & Plan ESRD- On HD MWF- Dr. Arriaga Missed HD on Monday Seen on HD, tolerating well Continue as Ordered, mihcael field aide Anemia- Hgb stable No Indication of JT currently HTN- BP High Continue Home meds HD today with UF Labs Labs Laboratory Tests Test 09/02/18 20:25 09/03/18 06:26 White Blood Count 4.5 x10^3/uL (4.0-11.0) Red Blood Count 3.80 x10^6/uL (4.30-5.70) Hemoglobin 12.1 g/dL (13.0-17.5) Hematocrit 36.6 % (39.0-53.0) Mean Corpuscular Volume 96 fL (79-100) Mean Corpuscular Hemoglobin 32 pg (25-35) Mean Corpuscular Hemoglobin Concent 33 g/dL (31-37) Red Cell Distribution Width 14.2 % (11.5-14.5) Platelet Count 133 x10^3/uL (140-400) Neutrophils (%) (Auto) 60 % (31-73) Lymphocytes (%) (Auto) 27 % (24-48) Monocytes (%) (Auto) 10 % (0-9) Eosinophils (%) (Auto) 2 % (0-3) Basophils (%) (Auto) 1 % (0-3) Neutrophils # (Auto) 2.7 x10^3uL (1.8-7.7) Lymphocytes # (Auto) 1.2 x10^3/uL (1.0-4.8) Monocytes # (Auto) 0.4 x10^3/uL (0.0-1.1) Eosinophils # (Auto) 0.1 x10^3/uL (0.0-0.7) Basophils # (Auto) 0.0 x10^3/uL (0.0-0.2) Sodium Level 137 mmol/L (136-145) 135 mmol/L (136-145) Potassium Level 6.2 mmol/L (3.5-5.1) 6.9 mmol/L (3.5-5.1) Chloride Level 99 mmol/L (98-107) 98 mmol/L (98-107) Carbon Dioxide Level 20 mmol/L (21-32) 23 mmol/L (21-32) Anion Gap 18 (6-14) 14 (6-14) Blood Urea Nitrogen 103 mg/dL (8-26) 104 mg/dL (8-26) Creatinine 19.3 mg/dL (0.7-1.3) 19.1 mg/dL (0.7-1.3) Estimated GFR (Cockcroft-Gault) 3.3 3.3 BUN/Creatinine Ratio 5 (6-20) Glucose Level 84 mg/dL (70-99) 120 mg/dL (70-99) Calcium Level 10.3 mg/dL (8.5-10.1) 9.7 mg/dL (8.5-10.1) Magnesium Level 2.5 mg/dL (1.8-2.4) Total Bilirubin 0.6 mg/dL (0.2-1.0) Aspartate Amino Transf (AST/SGOT) 22 U/L (15-37) Alanine Aminotransferase (ALT/SGPT) 30 U/L (16-63) Alkaline Phosphatase 64 U/L (46-116) Troponin I Quantitative 0.080 ng/mL (0.000-0.055) Total Protein 7.1 g/dL (6.4-8.2) Albumin 3.5 g/dL (3.4-5.0) Albumin/Globulin Ratio 1.0 (1.0-1.7) Lipase 199 U/L (73-393) Influenza Type A Antigen Negative (NEGATIVE) Influenza Type B Antigen Negative (NEGATIVE) Laboratory Tests Test 09/02/18 20:25 09/03/18 06:26 White Blood Count 4.5 x10^3/uL (4.0-11.0) Red Blood Count 3.80 x10^6/uL (4.30-5.70) Hemoglobin 12.1 g/dL (13.0-17.5) Hematocrit 36.6 % (39.0-53.0) Mean Corpuscular Volume 96 fL (79-100) Mean Corpuscular Hemoglobin 32 pg (25-35) Mean Corpuscular Hemoglobin Concent 33 g/dL (31-37) Red Cell Distribution Width 14.2 % (11.5-14.5) Platelet Count 133 x10^3/uL (140-400) Neutrophils (%) (Auto) 60 % (31-73) Lymphocytes (%) (Auto) 27 % (24-48) Monocytes (%) (Auto) 10 % (0-9) Eosinophils (%) (Auto) 2 % (0-3) Basophils (%) (Auto) 1 % (0-3) Neutrophils # (Auto) 2.7 x10^3uL (1.8-7.7) Lymphocytes # (Auto) 1.2 x10^3/uL (1.0-4.8) Monocytes # (Auto) 0.4 x10^3/uL (0.0-1.1) Eosinophils # (Auto) 0.1 x10^3/uL (0.0-0.7) Basophils # (Auto) 0.0 x10^3/uL (0.0-0.2) Sodium Level 137 mmol/L (136-145) 135 mmol/L (136-145) Potassium Level 6.2 mmol/L (3.5-5.1) 6.9 mmol/L (3.5-5.1) Chloride Level 99 mmol/L (98-107) 98 mmol/L (98-107) Carbon Dioxide Level 20 mmol/L (21-32) 23 mmol/L (21-32) Anion Gap 18 (6-14) 14 (6-14) Blood Urea Nitrogen 103 mg/dL (8-26) 104 mg/dL (8-26) Creatinine 19.3 mg/dL (0.7-1.3) 19.1 mg/dL (0.7-1.3) Estimated GFR (Cockcroft-Gault) 3.3 3.3 BUN/Creatinine Ratio 5 (6-20) Glucose Level 84 mg/dL (70-99) 120 mg/dL (70-99) Calcium Level 10.3 mg/dL (8.5-10.1) 9.7 mg/dL (8.5-10.1) Magnesium Level 2.5 mg/dL (1.8-2.4) Total Bilirubin 0.6 mg/dL (0.2-1.0) Aspartate Amino Transf (AST/SGOT) 22 U/L (15-37) Alanine Aminotransferase (ALT/SGPT) 30 U/L (16-63) Alkaline Phosphatase 64 U/L (46-116) Troponin I Quantitative 0.080 ng/mL (0.000-0.055) Total Protein 7.1 g/dL (6.4-8.2) Albumin 3.5 g/dL (3.4-5.0) Albumin/Globulin Ratio 1.0 (1.0-1.7) Lipase 199 U/L (73-393) Influenza Type A Antigen Negative (NEGATIVE) Influenza Type B Antigen Negative (NEGATIVE) Review All relevant outside records, renal labs, imaging studies, telemetry/EKG's were reviewed. SAW RICO MD Sep 03, 2018 14:01
--- NOTE | 2018-09-03 14:45 | EKG ---
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
[2018-09-03 15:00] VITALS: BP 164/106
[2018-09-03] MEDS ORDERED: LABETALOL 20 MG/4 ML DISP.SYRIN. IVP ONE (15:30)
[2018-09-03] MEDS: amLODIPine BESYLATE 5 MG TABLET PO SCH (15:49)
[2018-09-03] MEDS: LISINOPRIL 20 MG TABLET PO SCH (15:49)
--- NOTE | 2018-09-03 16:32 | PDOC1 ---
History and Physical Date of Admission Date of Admission DATE: 09/03/18 TIME: 16:29 Identification/Chief Complaint Chief Complaint no n.v.d Source Source: Chart review, Patient History of Present Illness History of Present Illness Mr. Molina, is a 42 year old male admit from ER for acute vomiting and diarrhea. Pt has had HD today for hyperkalemai, and now feels improved, is eating, has plan for a second tray His abdominal pain had lasted for 5 days patient states that he missed dialysis on Monday due to pain. is more in the left feels a cramping is been unable to keep anything down no chest pain no shortness of breath mild headache. Symptoms are moderate worsening with time Past Medical History Cardiovascular: HTN Pulmonary: No pertinent hx GI: No pertinent hx Heme/Onc: No pertinent hx Hepatobiliary: No pertinent hx Psych: No pertinent hx Renal/: Chronic renal insuff, Acute renal failure, Chronic renal failure Endocrine: Hyperparathyroidism Past Surgical History Past Surgical History: Other Family History Family History: Other Social History Smoke: No ALCOHOL: none Drugs: None Current Medications Current Medications Current Medications Ondansetron HCl (Zofran) 4 mg 1X ONCE IV Last administered on 09/02/18at 20:33 ; Start 09/02/18 at 20:15; Stop 09/02/18 at 20:16; Status DC Fentanyl Citrate (Fentanyl 2ml Vial) 50 mcg 1X ONCE IV Last administered on at 20:34; Start 09/02/18 at 20:15; Stop 09/02/18 at 20:16; Status DC Iohexol (Omnipaque 300 Mg/ml) 60 ml 1X ONCE IV Last administered on 09/02/18at 21:15; Start 09/02/18 at 21:30; Stop 09/02/18 at 21:31; Status DC Info (CONTRAST GIVEN -- Rx MONITORING) 1 each PRN DAILY PRN MC SEE COMMENTS; Start 09/02/18 at 21:15; Stop 09/04/18 at 21:14 Calcium Gluconate (Calcium Gluconate) 1,000 mg 1X ONCE IVP Last administered on 09/02/18at 22:11; Start 09/02/18 at 22:00; Stop 09/02/18 at 22:01; Status DC Sodium Bicarbonate (Sodium Bicarb Adult 8.4% Syr) 50 meq 1X ONCE IV Last administered on 09/02/18at 22:11; Start 09/02/18 at 22:00; Stop 09/02/18 at 22:01 ; Status DC Dextrose (Dextrose 50%-Water Syringe) 25 gm 1X ONCE IV Last administered on at 22:11; Start 09/02/18 at 22:00; Stop 09/02/18 at 22:01; Status DC Insulin Human Regular (HumuLIN R VIAL) 10 unit 1X ONCE IV Last administered on 09/02/18at 22:12; Start 09/02/18 at 22:00; Stop 09/02/18 at 22:01; Status DC Sodium Polystyrene Sulfonate (Kayexalate) 30 gm 1X ONCE PO Last administered on 09/02/18at 22:11; Start 09/02/18 at 22:00; Stop 09/02/18 at 22:01; Status DC Ondansetron HCl (Zofran) 4 mg PRN Q8HRS PRN IV NAUSEA/VOMITING 1ST CHOICE; Start 09/02/18 at 22:15; Stop 09/03/18 at 00:11; Status DC Morphine Sulfate (Morphine Sulfate) 4 mg PRN Q2HR PRN IV SEVERE PAIN; Start at 22:15; Stop 09/03/18 at 22:14 Prochlorperazine Edisylate (Compazine) 10 mg PRN Q6HRS PRN IV VOMITING 1ST CHOICE; Start 09/03/18 at 00:15 Sodium Chloride 1,000 ml @ 1,000 mls/hr Q1H PRN IV hypotension; Start 09/03/18 at 07:30; Stop 09/03/18 at 18:00 Albumin Human 200 ml @ 200 mls/hr 1X PRN PRN IV Hypotension; Start 09/03/18 at 07:30; Stop 09/03/18 at 13:29; Status DC Heparin Sodium (Porcine) (Heparin Sodium) 2,000 unit 1X PRN PRN INT CAT STRAIGHTENER AND ALIGNER catheter pack; Start 09/03/18 at 07:30; Stop 09/03/18 at 18:00 Sodium Chloride (Normal Saline Flush) 10 ml 1X PRN PRN IV STRAIGHTENER AND ALIGNER catheter pack; Start 09/03/18 at 07:30; Stop 09/03/18 at 18:00 Sodium Chloride 1,000 ml @ 400 mls/hr Q2H30M PRN IV PATENCY; Start 09/03/18 at 07:30; Stop 09/03/18 at 18:00 Info (PHARMACY MONITORING -- do not chart) 1 each PRN DAILY PRN MC SEE COMMENTS ; Start 09/03/18 at 07:30; Status UNV Info (PHARMACY MONITORING -- do not chart) 1 each PRN DAILY PRN MC SEE COMMENTS ; Start 09/03/18 at 07:30 Diphenhydramine HCl (Benadryl) 50 mg 1X ONCE IM Last administered on at 09:30; Start 09/03/18 at 09:30; Stop 09/03/18 at 09:31; Status DC Amlodipine Besylate (Norvasc) 5 mg DAILY PO Last administered on 09/03/18at 15: 49; Start 09/03/18 at 16:00 Lisinopril (Prinivil) 20 mg DAILY PO Last administered on 09/03/18at 15:49; Start 09/03/18 at 16:00 Carvedilol (Coreg) 25 mg BIDWMEALS PO ; Start 09/03/18 at 17:00 Labetalol HCl (Normodyne Iv Push) 20 mg 1X ONCE IVP Last administered on at 15:52; Start 09/03/18 at 15:30; Stop 09/03/18 at 15:31; Status DC Active Scripts Active Reported Carvedilol 25 Mg Tablet 1 Tab PO BID Amlodipine Besylate 5 Mg Tablet 5 Mg PO DAILY Lisinopril 20 Mg Tablet 1 Tab PO DAILY Calcium Acetate 667 Mg Tablet 667 Mg PO TIDWMEALS Allergies Allergies: Coded Allergies: No Known Drug Allergies (Unverified , 05/08/17) ROS General: No: Chills, Night Sweats, Fatigue, Malaise, Appetite, Other PSYCHOLOGICAL ROS: No: Anxiety, Behavioral Disorder, Concentration difficultie , Decreased libido, Depression, Disorientation, Hallucinations, Hostility, Irritablity, Memory difficulties, Mood Swings, Obsessive thoughts, Other Eyes: No Blurry vision, No Decreased vision, No Double vision, No Dry eyes, No Excessive tearing, No Eye Pain, No Itchy Eyes, No Loss of vision, No Photophobia , No Scotomata, No Uses contacts, No Uses glasses, No Other HEENT: No: Heacaches, Visual Changes, Hearing change, Nasal congestion, Nasal discharge, Oral lesions, Sinus pain, Sore Throat, Epistaxis, Sneezing, Snoring, Tinnitus, Vertigo, Vocal changes, Other Cardiovascular: No Chest Pain, No Palpitations, No Orthopnea, No Paroxysmal Noc. Dyspnea, No Edema, No Lt Headedness, No Other Gastrointestinal: Yes Nausea, Yes Abdominal Pain Genitourinary: No Dysuria, No Frequency, No Incontinence, No Hematuria, No Retention, No Discharge, No Urgency, No Pain, No Flank Pain, No Other, No , No , No , No , No , No , No Musculoskeletal: No Gait Disturbance, No Joint Pain, No Joint Stiffness, No Joint Swelling, No Muscle Pain, No Muscular Weakness, No Pain In:, No Swelling In:, No Other Neurological: No Behavorial Changes, No Bowel/Bladder ControlChng, No Confusion , No Dizziness, No Gait Disturbance, No Headaches, No Impaired Coord/balance, No Memory Loss, No Numbness/Tingling, No Seizures, No Speech Problems, No Tremors, No Visual Changes, No Weakness, No Other Skin: Yes Dry Skin; No Eczema, No Hair Changes, No Lumps, No Mole Changes, No Mottling, No Nail Changes, No Pruritus, No Rash, No Skin Lesion Changes, No Other, No Acne Physical Exam General: Alert, Oriented X3, No acute distress HEENT: Atraumatic, PERRLA, EOMI Lungs: Clear to auscultation, Normal air movement Heart: no gallops, no murmurs Abdomen: Soft, Other (tender) Extremities: No clubbing, No edema, Normal pulses Skin: No rashes, No significant lesion Neuro: Normal gait, Sensation intact Vitals Vitals Vital Signs Date Time Temp Pulse Resp B/P (MAP) Pulse Ox O2 Delivery O2 Flow Rate FiO2 09/03/18 15:52 101 164/106 09/03/18 15:00 98.0 18 90 Nasal Cannula 1.0 98.0 Labs Labs Laboratory Tests Test 09/02/18 20:25 09/03/18 06:26 White Blood Count 4.5 x10^3/uL (4.0-11.0) Red Blood Count 3.80 x10^6/uL (4.30-5.70) Hemoglobin 12.1 g/dL (13.0-17.5) Hematocrit 36.6 % (39.0-53.0) Mean Corpuscular Volume 96 fL (79-100) Mean Corpuscular Hemoglobin 32 pg (25-35) Mean Corpuscular Hemoglobin Concent 33 g/dL (31-37) Red Cell Distribution Width 14.2 % (11.5-14.5) Platelet Count 133 x10^3/uL (140-400) Neutrophils (%) (Auto) 60 % (31-73) Lymphocytes (%) (Auto) 27 % (24-48) Monocytes (%) (Auto) 10 % (0-9) Eosinophils (%) (Auto) 2 % (0-3) Basophils (%) (Auto) 1 % (0-3) Neutrophils # (Auto) 2.7 x10^3uL (1.8-7.7) Lymphocytes # (Auto) 1.2 x10^3/uL (1.0-4.8) Monocytes # (Auto) 0.4 x10^3/uL (0.0-1.1) Eosinophils # (Auto) 0.1 x10^3/uL (0.0-0.7) Basophils # (Auto) 0.0 x10^3/uL (0.0-0.2) Sodium Level 137 mmol/L (136-145) 135 mmol/L (136-145) Potassium Level 6.2 mmol/L (3.5-5.1) 6.9 mmol/L (3.5-5.1) Chloride Level 99 mmol/L (98-107) 98 mmol/L (98-107) Carbon Dioxide Level 20 mmol/L (21-32) 23 mmol/L (21-32) Anion Gap 18 (6-14) 14 (6-14) Blood Urea Nitrogen 103 mg/dL (8-26) 104 mg/dL (8-26) Creatinine 19.3 mg/dL (0.7-1.3) 19.1 mg/dL (0.7-1.3) Estimated GFR (Cockcroft-Gault) 3.3 3.3 BUN/Creatinine Ratio 5 (6-20) Glucose Level 84 mg/dL (70-99) 120 mg/dL (70-99) Calcium Level 10.3 mg/dL (8.5-10.1) 9.7 mg/dL (8.5-10.1) Magnesium Level 2.5 mg/dL (1.8-2.4) Total Bilirubin 0.6 mg/dL (0.2-1.0) Aspartate Amino Transf (AST/SGOT) 22 U/L (15-37) Alanine Aminotransferase (ALT/SGPT) 30 U/L (16-63) Alkaline Phosphatase 64 U/L (46-116) Troponin I Quantitative 0.080 ng/mL (0.000-0.055) Total Protein 7.1 g/dL (6.4-8.2) Albumin 3.5 g/dL (3.4-5.0) Albumin/Globulin Ratio 1.0 (1.0-1.7) Lipase 199 U/L (73-393) Influenza Type A Antigen Negative (NEGATIVE) Influenza Type B Antigen Negative (NEGATIVE) Laboratory Tests Test 09/02/18 20:25 09/03/18 06:26 White Blood Count 4.5 x10^3/uL (4.0-11.0) Red Blood Count 3.80 x10^6/uL (4.30-5.70) Hemoglobin 12.1 g/dL (13.0-17.5) Hematocrit 36.6 % (39.0-53.0) Mean Corpuscular Volume 96 fL (79-100) Mean Corpuscular Hemoglobin 32 pg (25-35) Mean Corpuscular Hemoglobin Concent 33 g/dL (31-37) Red Cell Distribution Width 14.2 % (11.5-14.5) Platelet Count 133 x10^3/uL (140-400) Neutrophils (%) (Auto) 60 % (31-73) Lymphocytes (%) (Auto) 27 % (24-48) Monocytes (%) (Auto) 10 % (0-9) Eosinophils (%) (Auto) 2 % (0-3) Basophils (%) (Auto) 1 % (0-3) Neutrophils # (Auto) 2.7 x10^3uL (1.8-7.7) Lymphocytes # (Auto) 1.2 x10^3/uL (1.0-4.8) Monocytes # (Auto) 0.4 x10^3/uL (0.0-1.1) Eosinophils # (Auto) 0.1 x10^3/uL (0.0-0.7) Basophils # (Auto) 0.0 x10^3/uL (0.0-0.2) Sodium Level 137 mmol/L (136-145) 135 mmol/L (136-145) Potassium Level 6.2 mmol/L (3.5-5.1) 6.9 mmol/L (3.5-5.1) Chloride Level 99 mmol/L (98-107) 98 mmol/L (98-107) Carbon Dioxide Level 20 mmol/L (21-32) 23 mmol/L (21-32) Anion Gap 18 (6-14) 14 (6-14) Blood Urea Nitrogen 103 mg/dL (8-26) 104 mg/dL (8-26) Creatinine 19.3 mg/dL (0.7-1.3) 19.1 mg/dL (0.7-1.3) Estimated GFR (Cockcroft-Gault) 3.3 3.3 BUN/Creatinine Ratio 5 (6-20) Glucose Level 84 mg/dL (70-99) 120 mg/dL (70-99) Calcium Level 10.3 mg/dL (8.5-10.1) 9.7 mg/dL (8.5-10.1) Magnesium Level 2.5 mg/dL (1.8-2.4) Total Bilirubin 0.6 mg/dL (0.2-1.0) Aspartate Amino Transf (AST/SGOT) 22 U/L (15-37) Alanine Aminotransferase (ALT/SGPT) 30 U/L (16-63) Alkaline Phosphatase 64 U/L (46-116) Troponin I Quantitative 0.080 ng/mL (0.000-0.055) Total Protein 7.1 g/dL (6.4-8.2) Albumin 3.5 g/dL (3.4-5.0) Albumin/Globulin Ratio 1.0 (1.0-1.7) Lipase 199 U/L (73-393) Influenza Type A Antigen Negative (NEGATIVE) Influenza Type B Antigen Negative (NEGATIVE) VTE Prophylaxis Ordered VTE Prophylaxis Devices: No VTE Pharmacological Prophylaxi: Yes Assessment/Plan Assessment/Plan Hyperkalemia acute abd pain, w/ nausea ESRD, poor compliance on disabillity? for ESRD he reports SAROJ MORE MD Sep 03, 2018 16:32
[2018-09-03] MEDS: CARVEDILOL 12.5 MG TABLET. PO SCH (17:25)
[2018-09-03 19:40] VITALS: BP 131/82
[2018-09-03 22:40] VITALS: BP 140/85
[2018-09-04 03:20] VITALS: BP 161/93
[2018-09-04 07:15] VITALS: BP 148/96
[2018-09-04] MEDS: amLODIPine BESYLATE 5 MG TABLET PO SCH (08:31)
[2018-09-04] MEDS: LISINOPRIL 20 MG TABLET PO SCH (08:31)
[2018-09-04] MEDS: CARVEDILOL 12.5 MG TABLET. PO SCH (08:31)
--- NOTE | 2018-09-04 08:35 | NUR ---
SW following pt for anticipated dc needs. Chart reviewed. Pt lives at home with family and No SW needs indicated at this time. Will continue to follow.
--- NOTE | 2018-09-04 10:55 | PDOC3 ---
Discharge Summary Visit Information Date of Admission: Sep 02, 2018 Date of Discharge: Sep 04, 2018 Admitting Diagnosis: abd pain Final Diagnosis Hyperkalemia acute abd pain, w/ nausea ESRD, poor compliance on disabillity? for ESRD he reports Brief Hospital Course Allergies Allergies Coded Allergies Type Severity Reaction Last Updated Verified No Known Drug Allergies 05/08/17 No Vital Signs Vital Signs Date Time Temp Pulse Resp B/P (MAP) Pulse Ox O2 Delivery O2 Flow Rate FiO2 09/04/18 08:31 77 148/96 09/04/18 08:15 Room Air 09/04/18 07:15 97.8 18 96 97.8 09/04/18 03:20 1.0 Lab Results Laboratory Tests Test 09/02/18 20:25 09/03/18 06:26 09/04/18 07:24 White Blood Count 4.5 x10^3/uL (4.0-11.0) Red Blood Count 3.80 x10^6/uL (4.30-5.70) Hemoglobin 12.1 g/dL (13.0-17.5) Hematocrit 36.6 % (39.0-53.0) Mean Corpuscular Volume 96 fL (79-100) Mean Corpuscular Hemoglobin 32 pg (25-35) Mean Corpuscular Hemoglobin Concent 33 g/dL (31-37) Red Cell Distribution Width 14.2 % (11.5-14.5) Platelet Count 133 x10^3/uL (140-400) Neutrophils (%) (Auto) 60 % (31-73) Lymphocytes (%) (Auto) 27 % (24-48) Monocytes (%) (Auto) 10 % (0-9) Eosinophils (%) (Auto) 2 % (0-3) Basophils (%) (Auto) 1 % (0-3) Neutrophils # (Auto) 2.7 x10^3uL (1.8-7.7) Lymphocytes # (Auto) 1.2 x10^3/uL (1.0-4.8) Monocytes # (Auto) 0.4 x10^3/uL (0.0-1.1) Eosinophils # (Auto) 0.1 x10^3/uL (0.0-0.7) Basophils # (Auto) 0.0 x10^3/uL (0.0-0.2) Sodium Level 137 mmol/L (136-145) 135 mmol/L (136-145) Potassium Level 6.2 mmol/L (3.5-5.1) 6.9 mmol/L (3.5-5.1) Chloride Level 99 mmol/L (98-107) 98 mmol/L (98-107) Carbon Dioxide Level 20 mmol/L (21-32) 23 mmol/L (21-32) Anion Gap 18 (6-14) 14 (6-14) Blood Urea Nitrogen 103 mg/dL (8-26) 104 mg/dL (8-26) Creatinine 19.3 mg/dL (0.7-1.3) 19.1 mg/dL (0.7-1.3) Estimated GFR (Cockcroft-Gault) 3.3 3.3 BUN/Creatinine Ratio 5 (6-20) Glucose Level 84 mg/dL (70-99) 120 mg/dL (70-99) Calcium Level 10.3 mg/dL (8.5-10.1) 9.7 mg/dL (8.5-10.1) Magnesium Level 2.5 mg/dL (1.8-2.4) Total Bilirubin 0.6 mg/dL (0.2-1.0) Aspartate Amino Transf (AST/SGOT) 22 U/L (15-37) Alanine Aminotransferase (ALT/SGPT) 30 U/L (16-63) Alkaline Phosphatase 64 U/L (46-116) Troponin I Quantitative 0.080 ng/mL (0.000-0.055) Total Protein 7.1 g/dL (6.4-8.2) Albumin 3.5 g/dL (3.4-5.0) Albumin/Globulin Ratio 1.0 (1.0-1.7) Lipase 199 U/L (73-393) Influenza Type A Antigen Negative (NEGATIVE) Influenza Type B Antigen Negative (NEGATIVE) Glucose (Fingerstick) 101 mg/dL (70-99) Laboratory Tests Test 09/04/18 07:24 Glucose (Fingerstick) 101 mg/dL (70-99) Brief Hospital Course Mr. Sterling is a 42 old admit wtih abd pain, potassium 6.9, had missed HD, poor compliance, felt better after HD, was eating double trays of food for > 12 hours Discharge Information Condition at Discharge: Improved Follow Up: Weeks Disposition/Orders: D/C to Home Scheduled Amlodipine Besylate (Amlodipine Besylate) 5 Mg Tablet, 5 MG PO DAILY, (Reported) Entered as Reported by: SALLY TORRES on 12/10/171206 Last Action: Continued on 09/03/18 1520 by SAROJ MORE Calcium Acetate (Calcium Acetate) 667 Mg Tablet, 667 MG PO TIDWMEALS for DIALYSIS PATIENTS, (Reported) Entered as Reported by: SALLY TORRES on 12/10/171206 Last Action: Reviewed on 09/03/1841 by AKANKSHA COTE Carvedilol (Carvedilol) 25 Mg Tablet, 1 TAB PO BID, #180 Ref 1 (Reported) Entered as Reported by: SALLY TORRES on 12/10/171206 Last Action: Converted on 09/03/18 1520 by SAROJ MORE Lisinopril (Lisinopril) 20 Mg Tablet, 1 TAB PO DAILY, #30 Ref 5 (Reported) Entered as Reported by: SALLY TORRES on 12/10/171206 Last Action: Continued on 09/03/18 1520 by SAROJ CHO MD Sep 04, 2018 10:55
--- NOTE | 2018-09-04 11:10 | PDOC ---
SUBJECTIVE ROS States feeling better OBJECTIVE Vital Signs Vital Signs Date Time Temp Pulse Resp B/P (MAP) Pulse Ox O2 Delivery O2 Flow Rate FiO2 09/04/18 08:31 77 148/96 09/04/18 08:15 Room Air 09/04/18 07:15 97.8 18 96 97.8 09/04/18 03:20 1.0 I & 0 Intake and Output 09/04/18 06:59 Intake Total 1020 ml Balance 1020 ml Intake Oral 1020 ml # Voids 2 PHYSICAL EXAM Physical Exam GEN: NAD HEEN: Om moist NECK Supple CVS: RRR RESP: CTA, Non labored GI: BS + ve, NO Bruit, Non Tender, Non Distended : No Simms Neuro- Grossly Normal Skin No rash Vital Signs Vital Signs Date Time Temp Pulse Resp B/P (MAP) Pulse Ox O2 Delivery O2 Flow Rate FiO2 09/03/18 08:15 Room Air 09/03/18 07:00 98.4 85 18 165/116 (132) 96 1.0 98.4 DIAGNOSIS/ASSESSMENT Assessment & Plan ESRD- On HD MWF- Dr. Arriaga Currently no indication for HD HD Tomorrow as per his schedule Anemia- Hgb stable No Indication of JT currently HTN- BP High Continue Home meds HD today with UF Failed Renal Tx - He was on HD until he received Renal TX in Mar 2009 On HD x 1 - 2yrs Tx weir in progress at as per pt COMMENT/RELEVANT DATA Meds Current Medications Medications (Trade) Dose Ordered Sig/Olivia Start Time Stop Time Status Last Admin Dose Admin Albumin Human 200 ml @ 200 mls/hr 1X PRN PRN 09/03/18 07:30 09/03/18 13:29 DC Amlodipine Besylate (Norvasc) 5 mg DAILY 09/03/18 16:00 09/04/18 08:31 5 MG Calcium Gluconate (Calcium Gluconate) 1,000 mg 1X ONCE 09/02/18 22:00 09/02/18 22:01 DC 09/02/18 22:11 1,000 MG Carvedilol (Coreg) 25 mg BIDWMEALS 09/03/18 17:00 09/04/18 08:31 25 MG Dextrose (Dextrose 50%-Water Syringe) 25 gm 1X ONCE 09/02/18 22:00 09/02/18 22:01 DC 09/02/18 22:11 25 GM Diphenhydramine HCl (Benadryl) 50 mg 1X ONCE 09/03/18 09:30 09/03/18 09:31 DC 09/03/18 09:30 50 MG Fentanyl Citrate (Fentanyl 2ml Vial) 50 mcg 1X ONCE 09/02/18 20:15 09/02/18 20:16 DC 09/02/18 20:34 50 MCG Heparin Sodium (Porcine) (Heparin Sodium) 2,000 unit 1X PRN PRN 09/03/18 07:30 09/03/18 18:00 DC Info (CONTRAST GIVEN -- Rx MONITORING) 1 each PRN DAILY PRN 09/02/18 21:15 09/04/18 21:14 Info (PHARMACY MONITORING -- do not chart) 1 each PRN DAILY PRN 09/03/18 07:30 Insulin Human Regular (HumuLIN R VIAL) 10 unit 1X ONCE 09/02/18 22:00 09/02/18 22:01 DC 09/02/18 22:12 10 UNIT Iohexol (Omnipaque 300 Mg/ml) 60 ml 1X ONCE 09/02/18 21:30 09/02/18 21:31 DC 09/02/18 21:15 60 ML Labetalol HCl (Normodyne Iv Push) 20 mg 1X ONCE 09/03/18 15:30 09/03/18 15:31 DC 09/03/18 15:52 20 MG Lisinopril (Prinivil) 20 mg DAILY 09/03/18 16:00 09/04/18 08:31 20 MG Morphine Sulfate (Morphine Sulfate) 4 mg PRN Q2HR PRN 09/02/18 22:15 09/03/18 22:14 DC Ondansetron HCl (Zofran) 4 mg PRN Q8HRS PRN 09/02/18 22:15 09/03/18 00:11 DC Prochlorperazine Edisylate (Compazine) 10 mg PRN Q6HRS PRN 09/03/18 00:15 Sodium Polystyrene Sulfonate (Kayexalate) 30 gm 1X ONCE 09/02/18 22:00 09/02/18 22:01 DC 09/02/18 22:11 30 GM Sodium Bicarbonate (Sodium Bicarb Adult 8.4% Syr) 50 meq 1X ONCE 09/02/18 22:00 09/02/18 22:01 DC 09/02/18 22:11 50 MEQ Sodium Chloride 1,000 ml @ 400 mls/hr Q2H30M PRN 09/03/18 07:30 09/03/18 18:00 DC Sodium Chloride (Normal Saline Flush) 10 ml 1X PRN PRN 09/03/18 07:30 09/03/18 18:00 DC Lab Laboratory Tests Test 09/04/18 07:24 Glucose (Fingerstick) 101 mg/dL (70-99) Results All relevant outside records, renal labs, imaging studies, telemetry/EKG's were reviewed. SAW RICO MD Sep 04, 2018 11:10
[2018-09-04 11:44] VITALS: BP 137/88
--- NOTE | 2018-09-04 13:27 | NUR ---
Discharge Note: ANICETO OSBORN Discharge instructions and discharge home medications reviewed with Patient and a copy given. All questions have been answered and understanding verbalized. The following instructions and handouts were given: discharge instructions, education and follow up recommendations. Discontinued lines and drains: Peripheral IV discontinued intact. Patient discharged to Home or Self Care with [facility] Transport Personnel via Wheelchair off unit by ELINOR
== END 2018-09-04 13:31 | disposition home or self-care (01) | DRG 640 ==
LOC: ER 19:45 → 5 NORTH 22:10
PROVIDERS: ADMIT Internal Medicine; ATTEND Internal Medicine
PROC: 5A1D70Z Performance of Urinary Filtration, Intermittent, Less than 6 Hours Per Day (ICD-10-PCS; principal; 2018-09-03)
DX: E87.5 Hyperkalemia (principal); N18.6 End stage renal disease; I12.0 Hypertensive chronic kidney disease with stage 5 chronic kidney disease or end stage renal disease; Z94.0 Kidney transplant status; J45.909 Unspecified asthma, uncomplicated; E21.3 Hyperparathyroidism, unspecified; D64.9 Anemia, unspecified; Z99.2 Dependence on renal dialysis; Z91.15 Patient's noncompliance with renal dialysis; Z79.899 Other long term (current) drug therapy
CPT/HCPCS: 36415; 71045; 74177; 80048; 80053; 82962; 83690; 83735; 84484; 85025; 87804; 93005; 96374; 96375; J0610; J1200; J1815; J2405; J3010; J3490; J7042; Q9967; 99285-25

== ENCOUNTER 2018-10-03 10:56 | Inpatient (IN) | payer OTHER ==
[~2018-10-03] VITALS: Ht 165.1 cm; Wt 60.8 kg
[~2018-10-03 10:56] MED LIST changes: -CALC667T PO; +CALC667T4 PO
[2018-10-03 11:45] LABS: BASO % 1 % (0-3); EOS % 0 % (0-3); HEMATOCRIT 34.4 % (39.0-53.0); HEMOGLOBIN 11.4 g/dL (13.0-17.5); LYMPH # 1.1 x10^3/uL (1.0-4.8); LYMPH % 29 % (24-48); MEAN CORPUSCULAR HEMOGLOBIN 31 pg (25-35); MEAN CORPUSCULAR HGB CONC 33 g/dL (31-37); MEAN CORPUSCULAR VOLUME 94 fL (79-100); MONO # 0.4 x10^3/uL (0.0-1.1); MONO % 11 % (0-9); NEUT # 2.3 x10^3uL (1.8-7.7); NEUT % 60 % (31-73); PLATELET COUNT 81 x10^3/uL (140-400); RED BLOOD COUNT 3.67 x10^6/uL (4.30-5.70); RED CELL DISTRIBUTION WIDTH 13.4 % (11.5-14.5); WHITE BLOOD COUNT 3.9 x10^3/uL (4.0-11.0)
[2018-10-03] MEDS ORDERED: ONDANSETRON PF 4 MG/2 ML VIAL. IV ONE (12:00)
[2018-10-03] MEDS ORDERED: IV NORMAL SALINE 1000ML BAG 1,000 ML IV SCH (12:00)
[2018-10-03 12:10] LABS: CALCIUM 8.7 mg/dL (8.5-10.1); CREATININE 14.7 mg/dL (0.7-1.3); GFR 4.5; POTASSIUM 4.5 mmol/L (3.5-5.1)
[2018-10-03 12:17] LABS: ALBUMIN 3.3 g/dL (3.4-5.0); ALBUMIN/GLOBULIN RATIO 0.9 (1.0-1.7); TOTAL BILIRUBIN 0.7 mg/dL (0.2-1.0); TOTAL PROTEIN 6.8 g/dL (6.4-8.2)
[2018-10-03 12:26] LABS: CREATINE KINASE 264 U/L (39-308)
--- NOTE | 2018-10-03 13:00 | EKG ---
[facility] [address] [place] [address] Test Date: 2018-10-03 Test Time: 11:18:20 Pat Name: ANICETO OSBORN Department: Room: Gender: M [employer] Tender: : 1975 Requested By: ORLIN ESCAMILLA Order Number: [id number] Reading MD: Elijah Berkowitz MD Measurements Intervals [place] Rate: 86 P: 76 OK: 146 QRS: 54 QRSD: 96 T: 47 QT: 388 QTc: 467 Interpretive Statements SINUS RHYTHM NON-SPECIFIC ST/T CHANGES Electronically Signed On 10-05-2018 16:26:30 CDT by Elijah Berkowitz MD
--- NOTE | 2018-10-03 13:12 | RAD ---
Acute abdominal series. 10/03/2018 12:02 PM Indication: NAUSEA, VOMITING, DIARRHEA, ABDOMINAL PAIN x4 DAYS Comparison Study: CT of the abdomen and pelvis with contrast early 2018 Discussion: There is marked cardiomegaly. No pneumothorax or significant effusion is seen. Relative lucency of the right lung base is noted of uncertain etiology. No overt vascular congestion is seen. Bony thorax appears to be grossly intact. No gross pneumoperitoneum is identified. The bowel gas pattern is nonobstructive. Gas is seen throughout the colon extending into the rectum. Surgical clips noted in the right pelvis. No acute osseous changes are seen. IMPRESSION:: 1. Marked cardiomegaly 2. Nonobstructive bowel gas pattern. Electronically signed by: Tay Felder MD (10/03/2018 1:10 PM) [id number]
--- NOTE | 2018-10-03 14:26 | PHYS DOC ---
Past Medical History Past Medical History: Asthma, Hypertension, Renal Failure, Other Additional Past Medical Histor: Focal glomerulosclerosis, kidney failure 2007 Past Surgical History: Other Additional Past Surgical Histo: "tube in neck"-removed,dialysis shunt right arm ,lft kidney transplant 2009 Alcohol Use: None Drug Use: None Adult General Chief Complaint Chief Complaint: NAUSEA/VOMITING/DIARRHA HPI HPI Patient is a 42 year old L presented to ER today for evaluation of nausea, vomiting, diarrhea And abdominal cramping for the last 5 days. He had end-stage renal failure on hemodialysis every Monday, Monday, Monday. Patient had his dialysis yesterday. He was not able to KEEP any FOOR OR the liquids down at home so he came in here today for evaluation. Review of Systems Review of Systems Constitutional: Denies fever or chills [] Eyes: Denies change in visual acuity, redness, or eye pain [] HENT: Denies nasal congestion or sore throat [] Respiratory: Denies cough or shortness of breath [] Cardiovascular: No additional information not addressed in HPI [] GI: POSITIVE FOR abdominal pain, nausea, vomiting, diarrhea [] : Denies dysuria or hematuria [] Musculoskeletal: Denies back pain or joint pain [] Integument: Denies rash or skin lesions [] Neurologic: Denies headache, focal weakness or sensory changes [] Endocrine: Denies polyuria or polydipsia [] All other systems were reviewed and found to be within normal limits, except as documented in this note. Current Medications Current Medications Current Medications Medications (Trade) Dose Ordered Sig/Olivia Start Time Stop Time Status Last Admin Dose Admin Morphine Sulfate (Morphine Sulfate) 2 mg PRN Q2HR PRN 10/03/18 14:45 10/04/18 14:44 Ondansetron HCl (Zofran) 4 mg PRN Q8HRS PRN 10/03/18 14:45 10/04/18 14:44 Sodium Chloride 1,000 ml @ 100 mls/hr Q10H 10/03/18 14:34 10/04/18 14:33 Allergies Allergies Allergies Coded Allergies Type Severity Reaction Last Updated Verified No Known Drug Allergies 05/08/17 No Physical Exam Physical Exam Constitutional: Well developed, well nourished, no acute distress, non-toxic appearance. [] HENT: Normocephalic, atraumatic, bilateral external ears normal, oropharynx moist, no oral exudates, nose normal. [] Eyes: PERRLA, EOMI, conjunctiva normal, no discharge. [] Neck: Normal range of motion, no tenderness, supple, no stridor. [] Cardiovascular:Heart rate regular rhythm, no murmur [] Lungs & Thorax: Bilateral breath sounds clear to auscultation [] Abdomen: Bowel sounds normal, soft, no tenderness, no masses, no pulsatile masses. [] Skin: Warm, dry, no erythema, no rash. [] Back: No tenderness, no CVA tenderness. [] Extremities: No tenderness, no cyanosis, no clubbing, ROM intact, no edema. [] Neurologic: Alert and oriented X 3, normal motor function, normal sensory function, no focal deficits noted. [] Psychologic: Affect normal, judgement normal, mood normal. [] Current Patient Data Vital Signs Vital Signs Date Time Temp Pulse Resp B/P (MAP) Pulse Ox O2 Delivery O2 Flow Rate FiO2 10/03/18 13:40 79 19 144/88 (106) 100 Room Air 10/03/18 11:30 98.8 2.0 98.8 Lab Values Laboratory Tests Test 10/03/18 11:25 White Blood Count 3.9 x10^3/uL (4.0-11.0) L Red Blood Count 3.67 x10^6/uL (4.30-5.70) L Hemoglobin 11.4 g/dL (13.0-17.5) L Hematocrit 34.4 % (39.0-53.0) L Mean Corpuscular Volume 94 fL (79-100) Mean Corpuscular Hemoglobin 31 pg (25-35) Mean Corpuscular Hemoglobin Concent 33 g/dL (31-37) Red Cell Distribution Width 13.4 % (11.5-14.5) Platelet Count 81 x10^3/uL (140-400) L Neutrophils (%) (Auto) 60 % (31-73) Lymphocytes (%) (Auto) 29 % (24-48) Monocytes (%) (Auto) 11 % (0-9) H Eosinophils (%) (Auto) 0 % (0-3) Basophils (%) (Auto) 1 % (0-3) Neutrophils # (Auto) 2.3 x10^3uL (1.8-7.7) Lymphocytes # (Auto) 1.1 x10^3/uL (1.0-4.8) Monocytes # (Auto) 0.4 x10^3/uL (0.0-1.1) Eosinophils # (Auto) 0.0 x10^3/uL (0.0-0.7) Basophils # (Auto) 0.0 x10^3/uL (0.0-0.2) Sodium Level 134 mmol/L (136-145) L Potassium Level 4.5 mmol/L (3.5-5.1) Chloride Level 93 mmol/L (98-107) L Carbon Dioxide Level 27 mmol/L (21-32) Anion Gap 14 (6-14) Blood Urea Nitrogen 78 mg/dL (8-26) H Creatinine 14.7 mg/dL (0.7-1.3) H Estimated GFR (Cockcroft-Gault) 4.5 BUN/Creatinine Ratio 5 (6-20) L Glucose Level 93 mg/dL (70-99) Calcium Level 8.7 mg/dL (8.5-10.1) Total Bilirubin 0.7 mg/dL (0.2-1.0) Aspartate Amino Transferase (AST) 92 U/L (15-37) H Alanine Aminotransferase (ALT) 78 U/L (16-63) H Alkaline Phosphatase 68 U/L (46-116) Creatine Kinase 264 U/L (39-308) Creatine Kinase MB (Mass) < 0.5 ng/mL (0.0-3.6) Creatine Kinase MB Relative Index % (0-4) Total Protein 6.8 g/dL (6.4-8.2) Albumin 3.3 g/dL (3.4-5.0) L Albumin/Globulin Ratio 0.9 (1.0-1.7) L Lipase 630 U/L (73-393) H Laboratory Tests 10/03/18 11:25 Laboratory Tests 10/03/18 11:25 EKG EKG [] Radiology/Procedures Radiology/Procedures [][facility] [address] [place], [place] [id number] IMAGING REPORT Signed PATIENT: ANICETO OSBORN ACCOUNT: [id number] : 1975 LOCATION: ER AGE: 42 SEX: M EXAM STATUS: REG ER ORD. PHYSICIAN: ORLIN ESCAMILLA DO REASON: nausea, vomting, diarrhea, abdominal pain for 4 days PROCEDURE: ACUTE ABDOMEN SERIES Acute abdominal series. 10/03/2018 12:02 PM Indication: NAUSEA, VOMITING, DIARRHEA, ABDOMINAL PAIN x4 DAYS Comparison Study: CT of the abdomen and pelvis with contrast early 2018 Discussion: There is marked cardiomegaly. No pneumothorax or significant effusion is seen. Relative lucency of the right lung base is noted of uncertain etiology. No overt vascular congestion is seen. Bony thorax appears to be grossly intact. No gross pneumoperitoneum is identified. The bowel gas pattern is nonobstructive. Gas is seen throughout the colon extending into the rectum. Surgical clips noted in the right pelvis. No acute osseous changes are seen. IMPRESSION:: 1. Marked cardiomegaly 2. Nonobstructive bowel gas pattern. Electronically signed by: Tay Zuniga MD (10/03/2018 1:10 PM) [id number] DICTATED and SIGNED BY: TAY ZUNIGA MD DATE: 10/03/18 1310 Course & Med Decision Making Course & Med Decision Making Pertinent Labs and Imaging studies reviewed. (See chart for details) [] Dragon Disclaimer Dragon Disclaimer This electronic medical record was generated, in whole or in part, using a voice recognition dictation system. Departure Departure Impression: Primary Impression: Acute gastroenteritis Additional Impression: Acute pancreatitis Disposition: 09 ADMITTED INPATIENT Admitting Physician: Felicia Rodriguez Condition: IMPROVED Referrals: CLEM LUNA MD (PCP) Problem Qualifiers ORLIN ESCAMILLA DO Oct 03, 2018 14:26
[2018-10-03] MEDS ORDERED: ONDANSETRON PF 4 MG/2 ML VIAL. IV PRN (14:45)
[2018-10-03] MEDS ORDERED: MORPHINE SULFATE 2 MG/ML VIAL. IV PRN (14:45)
--- NOTE | 2018-10-03 15:45 | HP ---
ADMIT DATE: 10/03/2018 CHIEF COMPLAINT: Nausea, vomiting, diarrhea. HISTORY OF PRESENT ILLNESS: The patient is a pleasant 42-year-old male who is on dialysis. He presents with GI symptoms. He has nausea, vomiting and diarrhea. When he got to the ER, he rates his symptoms at 10/10. He has associated anxiety. Food makes it worse. Sitting still makes it better. I discussed the case with ER physician. It appears the patient has some gastroenteritis and pancreatitis with a lipase level of 600. We are going to admit the patient, give him some fluids and antiemetics and consult GI and Nephrology for his dialysis. PAST MEDICAL HISTORY: Asthma, end-stage renal disease, on dialysis; hypertension, focal glomerulosclerosis, history of kidney transplant in 2008. ALLERGIES: None. FAMILY HISTORY: Diabetes. SOCIAL HISTORY: Does not drink, smoke or take drugs. MEDICATIONS: Reviewed. He is on 4 home meds including carvedilol, amlodipine, lisinopril and calcium acetate. REVIEW OF SYSTEMS: GENERAL: No history of weight change, weakness or fevers. SKIN: No bruising, hair changes or rashes. EYES: No blurred, double or loss of vision. NOSE AND THROAT: No history of nosebleeds, hoarseness or sore throat. HEART: No history of palpitations, chest pain or shortness of breath on exertion. LUNGS: Denies cough, hemoptysis, wheezing or shortness of breath. GASTROINTESTINAL: He complains of abdominal pain and nausea. GENITOURINARY: No history of frequency, urgency, hesitancy or nocturia. NEUROLOGIC: Denies history of numbness, tingling, tremor or weakness. PSYCHIATRIC: No history of panic, anxiety or depression. ENDOCRINE: No history of heat or cold intolerance, polyuria or polydipsia. EXTREMITIES: Denies muscle weakness, joint pain, pain on walking or stiffness. PHYSICAL EXAMINATION: VITAL SIGNS: Temperature 98, pulse 80, respirations 18, blood pressure 130/90. GENERAL: He is sleeping. He awakens with very flat affect, seems dehydrated and weak. HEART: Distant S1, S2. LUNGS: Clear. ABDOMEN: Soft. EXTREMITIES: Trace edema. SKIN: Very dry. ENDOCRINE: No thyromegaly. LYMPHATICS: No cervical nodes. HEMATOPOIETIC: No bruising. PSYCHIATRIC: He is depressed. LABORATORY DATA: White count is 3.9, hemoglobin 11.4. Electrolytes: Sodium 134, potassium 4.5, chloride 93, bicarbonate 27, BUN 78, creatinine 14.7, glucose 93, AST and ALT are high at 92 and 78. Albumin low at 3.3. Lipase is 700. CT of the abdomen shows cardiomegaly and nonobstructive bowel gas pattern. ASSESSMENT AND PLAN: Pancreatitis, gastroenteritis, hyponatremia, azotemia, transaminitis, malnutrition, leukopenia, anemia. The patient has been admitted. We will consult GI and Nephrology, p.r.nNazanin Suazo, deep venous thrombosis prophylaxis, home meds, full code, p.r.n. morphine. SHAHBAZ HARTLEY DO DR: JOHNATHON/radha JOB#: [id number] / [id number]
[2018-10-03 16:22] VITALS: BP 140/88
--- NOTE | 2018-10-03 17:07 | PDOC2 ---
GI CONSULT Reason For Consult: Pancreatitis HPI: HPI: 42 y/o male, difficult historian. Ill x 4 days w/ n/v, abd pain and "a knot," and diarrhea. "If I eat or drink anything I throw up." Asks for regular food. Parents present - his father was just discharged from this facility earlier today w/ similar symptoms and thinks the patient has the same thing. Says " just got better on my own." His mom says I better give him something more than liquids or he won't be happy. GI asked to see for "pancreatitis" (lipase 630, no pancreas imaging). H/o ESRD and failed renal transplant. H/o GERD - his mom thinks he takes Pepcid daily. No dysphagia. No hematemesis, hematochezia, or melena. Has reported "a knot" in the past - tells me now that it appears when his fluid levels are off. No previous EGD or colonoscopy (though past documentation notes unremarkable EGD in 2005). Denies liver, pancreas, or GB history. Family and social history difficult to obtain. PMH: PMH: ESRD on HD (MWF), HTN, GERD, left renal transplant ROS: GEN: Denies fevers, chills, sweats HEENT: Denies blurred vision, sore throat CV: Denies chest pain RESP: Denies shortness of air, cough GI: Per HPI : Denies hematuria, dysuria ENDO: Denies weight changes NEURO: Denies confusion, dizziness MSK: Denies weakness, joint pain/swelling SKIN: Denies jaundice, pruritus Vitals: Vitals: Vital Signs Date Time Temp Pulse Resp B/P (MAP) Pulse Ox O2 Delivery O2 Flow Rate FiO2 10/03/18 16:22 98.3 72 16 140/88 (105) 100 Nasal Cannula 2.0 98.3 Labs: Labs: Laboratory Tests Test 10/03/18 11:25 White Blood Count 3.9 x10^3/uL (4.0-11.0) Red Blood Count 3.67 x10^6/uL (4.30-5.70) Hemoglobin 11.4 g/dL (13.0-17.5) Hematocrit 34.4 % (39.0-53.0) Mean Corpuscular Volume 94 fL (79-100) Mean Corpuscular Hemoglobin 31 pg (25-35) Mean Corpuscular Hemoglobin Concent 33 g/dL (31-37) Red Cell Distribution Width 13.4 % (11.5-14.5) Platelet Count 81 x10^3/uL (140-400) Neutrophils (%) (Auto) 60 % (31-73) Lymphocytes (%) (Auto) 29 % (24-48) Monocytes (%) (Auto) 11 % (0-9) Eosinophils (%) (Auto) 0 % (0-3) Basophils (%) (Auto) 1 % (0-3) Neutrophils # (Auto) 2.3 x10^3uL (1.8-7.7) Lymphocytes # (Auto) 1.1 x10^3/uL (1.0-4.8) Monocytes # (Auto) 0.4 x10^3/uL (0.0-1.1) Eosinophils # (Auto) 0.0 x10^3/uL (0.0-0.7) Basophils # (Auto) 0.0 x10^3/uL (0.0-0.2) Sodium Level 134 mmol/L (136-145) Potassium Level 4.5 mmol/L (3.5-5.1) Chloride Level 93 mmol/L (98-107) Carbon Dioxide Level 27 mmol/L (21-32) Anion Gap 14 (6-14) Blood Urea Nitrogen 78 mg/dL (8-26) Creatinine 14.7 mg/dL (0.7-1.3) Estimated GFR (Cockcroft-Gault) 4.5 BUN/Creatinine Ratio 5 (6-20) Glucose Level 93 mg/dL (70-99) Calcium Level 8.7 mg/dL (8.5-10.1) Total Bilirubin 0.7 mg/dL (0.2-1.0) Aspartate Amino Transf (AST/SGOT) 92 U/L (15-37) Alanine Aminotransferase (ALT/SGPT) 78 U/L (16-63) Alkaline Phosphatase 68 U/L (46-116) Creatine Kinase 264 U/L (39-308) Creatine Kinase MB (Mass) < 0.5 ng/mL (0.0-3.6) Creatine Kinase MB Relative Index % (0-4) Total Protein 6.8 g/dL (6.4-8.2) Albumin 3.3 g/dL (3.4-5.0) Albumin/Globulin Ratio 0.9 (1.0-1.7) Lipase 630 U/L (73-393) Allergies: Coded Allergies: No Known Drug Allergies (Unverified , 05/08/17) Medications: Current Medications Medications (Trade) Dose Ordered Sig/Olivia Route PRN Reason Start Time Stop Time Status Last Admin Dose Admin Sodium Chloride 1,000 ml @ 100 mls/hr Q10H IV 10/03/18 12:00 10/03/18 21:59 10/03/18 11:51 Ondansetron HCl (Zofran) 4 mg 1X ONCE IV 10/03/18 12:00 10/03/18 12:01 DC 10/03/18 11:51 Imaging: Imaging: Acute Abd Series IMPRESSION: 1. Marked cardiomegaly 2. Nonobstructive bowel gas pattern. CT A/P 08/2018 Findings: Minimal atelectasis or scarring in the lung bases. There is cardiomegaly. Mild pericardial effusion. There is moderate abdominal and pelvic ascites. Enhancement of the gallbladder wall may be secondary to the ascites. There is no wall thickening. Liver, spleen, pancreas, adrenal glands, and abdominal aorta caliber are normal. The [place] kidneys are atrophic and contain small cysts. Stomach unremarkable. No dilated small bowel. There is right lower quadrant transplant kidney which is enhancing. No hydronephrosis is seen. No colon wall thickening is identified. There is no appreciable colon diverticulosis. The appendix has air in its lumen. Urinary bladder is mostly decompressed, accentuating the wall thickness. Small Schmorl's nodes inferior endplates of the lumbar spine. Mild anasarca. IMPRESSION: 1. Moderate abdominal and pelvic ascites. Mild anasarca. 2. [place] kidneys are atrophic. Right lower quadrant transplant kidney without hydronephrosis. 3. Cardiomegaly. Mild pericardial effusion. PE: GEN: NAD HEENT: Atraumatic, PERRL LUNGS: NC, clear anteriorly HEART: RRR ABD: NABS, S/ND, doesn't seem particularly tender, umbilical hernia (small, reducible) EXTREMITY: No edema SKIN: No rashes, no jaundice NEURO/PSYCH: A & O 3 A/P: A/P: Vomiting, abd pain, diarrhea - father had similar symptoms GERD - ?on daily H2 juan francisco Mild transaminitis and mildly elevated lipase ESRD on HD - BUN 78, Cr 14.7 Chronic anemia - stable, iron deficient in 2017 CRC screen - average risk -- Unclear significance of mildly elevated lipase. Plans for regular (renal) diet. Check abd US. 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 ZACH MEZA Oct 03, 2018 17:07
[2018-10-03] MEDS: PANTOPRAZOLE IV PUSH 40 MG VIAL. IVP SCH (18:08)
[2018-10-03 19:00] VITALS: BP 130/87
[2018-10-03 23:10] VITALS: BP 125/88
[2018-10-04] MEDS: IV NORMAL SALINE 1000ML BAG 1,000 ML IV SCH ×3 (00:34→07:02)
[2018-10-04 03:00] VITALS: BP 122/66
[2018-10-04 07:25] VITALS: BP 108/80
[2018-10-04] MEDS ORDERED: IV NORMAL SALINE 1000ML BAG 1,000 ML IV PRN ×4 (07:41→08:35)
[2018-10-04] MEDS ORDERED: DIALYSIS PATIENT. MC PRN ×3 (07:45→08:45)
[2018-10-04] MEDS: PANTOPRAZOLE IV PUSH 40 MG VIAL. IVP SCH (07:45)
--- NOTE | 2018-10-04 08:26 | PDOC ---
PROGRESS NOTES Chief Complaint Chief Complaint Vomiting, abd pain, diarrhea - father had similar symptoms GERD - ?on daily H2 juan francisco Mild transaminitis and mildly elevated lipase ESRD on HD - BUN 78, Cr 14.7 Chronic anemia - stable, iron deficient in 2017 CRC screen - average risk History of Present Illness History of Present Illness 42 y/o male, difficult historian. 4 days w/ n/v, abd pain and diarrhea. Asks for regular food. Parents present - his father was just discharged from this facility earlier today w/ similar symptoms and thinks the patient has the same thing. H/o ESRD and failed renal transplant. H/o GERD - his mom thinks he takes Pepcid daily. No dysphagia. No hematemesis, hematochezia, or melena. Family and social history difficult to obtain. He is asking for food today, Still c/o abdominal discomfort. To dialysis today Plan: Repeat CMP HIDA scan per GI Vitals Vitals Vital Signs Date Time Temp Pulse Resp B/P (MAP) Pulse Ox O2 Delivery O2 Flow Rate FiO2 10/04/18 07:25 98.3 87 20 108/80 (89) 98 Room Air 98.3 10/03/18 16:22 2.0 Physical Exam General: Alert, Cooperative Heart: Regular rate, Normal S1, Normal S2 Lungs: Clear, Wheezing Abdomen: Normal bowel sounds, Soft Extremities: No clubbing, No cyanosis Skin: No rashes, No breakdown Labs LABS Laboratory Tests Test 10/03/18 11:25 White Blood Count 3.9 x10^3/uL (4.0-11.0) Red Blood Count 3.67 x10^6/uL (4.30-5.70) Hemoglobin 11.4 g/dL (13.0-17.5) Hematocrit 34.4 % (39.0-53.0) Mean Corpuscular Volume 94 fL (79-100) Mean Corpuscular Hemoglobin 31 pg (25-35) Mean Corpuscular Hemoglobin Concent 33 g/dL (31-37) Red Cell Distribution Width 13.4 % (11.5-14.5) Platelet Count 81 x10^3/uL (140-400) Neutrophils (%) (Auto) 60 % (31-73) Lymphocytes (%) (Auto) 29 % (24-48) Monocytes (%) (Auto) 11 % (0-9) Eosinophils (%) (Auto) 0 % (0-3) Basophils (%) (Auto) 1 % (0-3) Neutrophils # (Auto) 2.3 x10^3uL (1.8-7.7) Lymphocytes # (Auto) 1.1 x10^3/uL (1.0-4.8) Monocytes # (Auto) 0.4 x10^3/uL (0.0-1.1) Eosinophils # (Auto) 0.0 x10^3/uL (0.0-0.7) Basophils # (Auto) 0.0 x10^3/uL (0.0-0.2) Sodium Level 134 mmol/L (136-145) Potassium Level 4.5 mmol/L (3.5-5.1) Chloride Level 93 mmol/L (98-107) Carbon Dioxide Level 27 mmol/L (21-32) Anion Gap 14 (6-14) Blood Urea Nitrogen 78 mg/dL (8-26) Creatinine 14.7 mg/dL (0.7-1.3) Estimated GFR (Cockcroft-Gault) 4.5 BUN/Creatinine Ratio 5 (6-20) Glucose Level 93 mg/dL (70-99) Calcium Level 8.7 mg/dL (8.5-10.1) Total Bilirubin 0.7 mg/dL (0.2-1.0) Aspartate Amino Transf (AST/SGOT) 92 U/L (15-37) Alanine Aminotransferase (ALT/SGPT) 78 U/L (16-63) Alkaline Phosphatase 68 U/L (46-116) Creatine Kinase 264 U/L (39-308) Creatine Kinase MB (Mass) < 0.5 ng/mL (0.0-3.6) Creatine Kinase MB Relative Index % (0-4) Total Protein 6.8 g/dL (6.4-8.2) Albumin 3.3 g/dL (3.4-5.0) Albumin/Globulin Ratio 0.9 (1.0-1.7) Lipase 630 U/L (73-393) Assessment and Plan Assessmemt and Plan Problems Medical Problems: (1) Acute gastroenteritis Status: Acute (2) Acute pancreatitis Status: Acute Comment Review of Relevant I have reviewed the following items stevie (where applicable) has been applied. Labs Laboratory Tests Test 10/03/18 11:25 White Blood Count 3.9 x10^3/uL (4.0-11.0) Red Blood Count 3.67 x10^6/uL (4.30-5.70) Hemoglobin 11.4 g/dL (13.0-17.5) Hematocrit 34.4 % (39.0-53.0) Mean Corpuscular Volume 94 fL (79-100) Mean Corpuscular Hemoglobin 31 pg (25-35) Mean Corpuscular Hemoglobin Concent 33 g/dL (31-37) Red Cell Distribution Width 13.4 % (11.5-14.5) Platelet Count 81 x10^3/uL (140-400) Neutrophils (%) (Auto) 60 % (31-73) Lymphocytes (%) (Auto) 29 % (24-48) Monocytes (%) (Auto) 11 % (0-9) Eosinophils (%) (Auto) 0 % (0-3) Basophils (%) (Auto) 1 % (0-3) Neutrophils # (Auto) 2.3 x10^3uL (1.8-7.7) Lymphocytes # (Auto) 1.1 x10^3/uL (1.0-4.8) Monocytes # (Auto) 0.4 x10^3/uL (0.0-1.1) Eosinophils # (Auto) 0.0 x10^3/uL (0.0-0.7) Basophils # (Auto) 0.0 x10^3/uL (0.0-0.2) Sodium Level 134 mmol/L (136-145) Potassium Level 4.5 mmol/L (3.5-5.1) Chloride Level 93 mmol/L (98-107) Carbon Dioxide Level 27 mmol/L (21-32) Anion Gap 14 (6-14) Blood Urea Nitrogen 78 mg/dL (8-26) Creatinine 14.7 mg/dL (0.7-1.3) Estimated GFR (Cockcroft-Gault) 4.5 BUN/Creatinine Ratio 5 (6-20) Glucose Level 93 mg/dL (70-99) Calcium Level 8.7 mg/dL (8.5-10.1) Total Bilirubin 0.7 mg/dL (0.2-1.0) Aspartate Amino Transf (AST/SGOT) 92 U/L (15-37) Alanine Aminotransferase (ALT/SGPT) 78 U/L (16-63) Alkaline Phosphatase 68 U/L (46-116) Creatine Kinase 264 U/L (39-308) Creatine Kinase MB (Mass) < 0.5 ng/mL (0.0-3.6) Creatine Kinase MB Relative Index % (0-4) Total Protein 6.8 g/dL (6.4-8.2) Albumin 3.3 g/dL (3.4-5.0) Albumin/Globulin Ratio 0.9 (1.0-1.7) Lipase 630 U/L (73-393) Laboratory Tests Test 10/03/18 11:25 White Blood Count 3.9 x10^3/uL (4.0-11.0) Red Blood Count 3.67 x10^6/uL (4.30-5.70) Hemoglobin 11.4 g/dL (13.0-17.5) Hematocrit 34.4 % (39.0-53.0) Mean Corpuscular Volume 94 fL (79-100) Mean Corpuscular Hemoglobin 31 pg (25-35) Mean Corpuscular Hemoglobin Concent 33 g/dL (31-37) Red Cell Distribution Width 13.4 % (11.5-14.5) Platelet Count 81 x10^3/uL (140-400) Neutrophils (%) (Auto) 60 % (31-73) Lymphocytes (%) (Auto) 29 % (24-48) Monocytes (%) (Auto) 11 % (0-9) Eosinophils (%) (Auto) 0 % (0-3) Basophils (%) (Auto) 1 % (0-3) Neutrophils # (Auto) 2.3 x10^3uL (1.8-7.7) Lymphocytes # (Auto) 1.1 x10^3/uL (1.0-4.8) Monocytes # (Auto) 0.4 x10^3/uL (0.0-1.1) Eosinophils # (Auto) 0.0 x10^3/uL (0.0-0.7) Basophils # (Auto) 0.0 x10^3/uL (0.0-0.2) Sodium Level 134 mmol/L (136-145) Potassium Level 4.5 mmol/L (3.5-5.1) Chloride Level 93 mmol/L (98-107) Carbon Dioxide Level 27 mmol/L (21-32) Anion Gap 14 (6-14) Blood Urea Nitrogen 78 mg/dL (8-26) Creatinine 14.7 mg/dL (0.7-1.3) Estimated GFR (Cockcroft-Gault) 4.5 BUN/Creatinine Ratio 5 (6-20) Glucose Level 93 mg/dL (70-99) Calcium Level 8.7 mg/dL (8.5-10.1) Total Bilirubin 0.7 mg/dL (0.2-1.0) Aspartate Amino Transf (AST/SGOT) 92 U/L (15-37) Alanine Aminotransferase (ALT/SGPT) 78 U/L (16-63) Alkaline Phosphatase 68 U/L (46-116) Creatine Kinase 264 U/L (39-308) Creatine Kinase MB (Mass) < 0.5 ng/mL (0.0-3.6) Creatine Kinase MB Relative Index % (0-4) Total Protein 6.8 g/dL (6.4-8.2) Albumin 3.3 g/dL (3.4-5.0) Albumin/Globulin Ratio 0.9 (1.0-1.7) Lipase 630 U/L (73-393) Medications Current Medications Sodium Chloride 1,000 ml @ 100 mls/hr Q10H IV Last administered on 10/03/18at 11:51; Start 10/03/18 at 12:00; Stop 10/03/18 at 21:59; Status DC Ondansetron HCl (Zofran) 4 mg 1X ONCE IV Last administered on 10/03/18at 11:51 ; Start 10/03/18 at 12:00; Stop 10/03/18 at 12:01; Status DC Ondansetron HCl (Zofran) 4 mg PRN Q8HRS PRN IV NAUSEA/VOMITING; Start 10/03/18 at 14:45; Stop 10/04/18 at 14:44 Morphine Sulfate (Morphine Sulfate) 2 mg PRN Q2HR PRN IV PAIN; Start 10/03/18 at 14:45; Stop 10/04/18 at 14:44 Sodium Chloride 1,000 ml @ 100 mls/hr Q10H IV Last administered on 10/04/18at 07:02; Start 10/03/18 at 14:34; Stop 10/04/18 at 14:33 Pantoprazole Sodium (PROTONIX VIAL for IV PUSH) 40 mg DAILYAC IVP Last administered on 10/04/18at 07:45; Start 10/03/18 at 17:30 Sodium Chloride 1,000 ml @ 1,000 mls/hr Q1H PRN IV hypotension; Start 10/04/18 at 07:41; Stop 10/04/18 at 13:40 Sodium Chloride 1,000 ml @ 400 mls/hr Q2H30M PRN IV PATENCY; Start 10/04/18 at 07:41; Stop 10/04/18 at 19:40 Info (PHARMACY MONITORING -- do not chart) 1 each PRN DAILY PRN MC SEE COMMENTS ; Start 10/04/18 at 07:45; Status UNV Info (PHARMACY MONITORING -- do not chart) 1 each PRN DAILY PRN MC SEE COMMENTS ; Start 10/04/18 at 07:45 Active Scripts Active Reported Carvedilol 25 Mg Tablet 1 Tab PO BID Amlodipine Besylate 5 Mg Tablet 5 Mg PO DAILY Lisinopril 20 Mg Tablet 1 Tab PO DAILY Calcium Acetate 667 Mg Tablet 667 Mg PO TIDWMEALS Vitals/I & O Vital Sign - Last 24 Hours 10/03/18 10/03/18 10/03/18 10/03/18 11:10 11:30 11:40 12:10 Temp 98.8 98.8 Pulse 80 83 83 82 Resp B/P (MAP) 139/95 (110) 139/95 (110) 152/98 (116) 142/90 (107) Pulse Ox 99 92 99 100 O2 Delivery Nasal Cannula Nasal Cannula Nasal Cannula Nasal Cannula O2 Flow Rate 2.0 2.0 2.0 2.0 10/03/18 10/03/18 10/03/18 10/03/18 12:40 13:10 13:40 14:30 Pulse 80 88 79 91 Resp B/P (MAP) 141/86 (104) 137/99 (112) 144/88 (106) 138/91 (107) Pulse Ox 100 100 100 100 O2 Delivery Nasal Cannula Nasal Cannula Nasal Cannula Nasal Cannula O2 Flow Rate 2.0 2.0 2.0 2.0 10/03/18 10/03/18 10/03/18 10/03/18 15:00 16:22 16:30 19:00 Temp 98.3 98.9 98.3 98.9 Pulse 81 72 82 Resp 18 16 18 B/P (MAP) 144/88 (106) 140/88 (105) 130/87 (101) Pulse Ox 100 100 93 O2 Delivery Nasal Cannula Nasal Cannula Room Air Room Air O2 Flow Rate 2.0 2.0 10/03/18 10/03/18 10/04/18 10/04/18 20:00 23:10 03:00 07:25 Temp 98.6 97.2 98.3 98.6 97.2 98.3 Pulse 86 80 87 Resp 16 16 20 B/P (MAP) 125/88 (100) 122/66 (84) 108/80 (89) Pulse Ox 96 93 98 O2 Delivery Room Air Room Air Room Air Room Air Intake and Output 10/03/18 10/03/18 10/04/18 14:59 22:59 06:59 Intake Total 480 ml Balance 480 ml COURTNEY CASAS MD Oct 04, 2018 08:26
[2018-10-04] MEDS ORDERED: diphenhydrAMINE 50 MG/ML VIAL IV PRN ×2 (08:45)
--- NOTE | 2018-10-04 08:47 | RAD ---
Examination: Ultrasound abdomen complete HISTORY: History of abdominal pain, elevated lipase COMPARISON: None available. FINDINGS: The visualized pancreas grossly appears unremarkable. The visualized aorta, IVC within normal limits of dimension. The echogenicity liver grossly appears unremarkable . The liver measures 16 cm in length. The gallbladder is mildly distended. The gallbladder wall thickness measures 4.8 mm. The common bile duct measures 2.6 mm in transverse dimension. The right kidney measures 6.7 x 3.5 x 2.3 cm. The left kidney measures 6.5 x 2.5 x 2.7 cm. The right and left kidneys appears atrophic and echogenic. There is a small cystic structure identified in the right kidney measuring 1.6 cm. Transplant kidney identified in the right lower quadrant of the abdomen measuring 9.4 x 3.8 cm. IMPRESSION: 1. Thickened appearance of the gallbladder wall could be due to nondistention or cholecystitis. Correlate clinically and with lab values. 2. Atrophic echogenic appearing bilateral kidneys likely due to medical renal disease. Right lower quadrant renal transplant is identified. Electronically signed by: Boom Padron MD (10/04/2018 8:44 AM) [id number]
[2018-10-04 10:03] LABS: BASO % 0 % (0-3); EOS % 0 % (0-3); HEMATOCRIT 33.3 % (39.0-53.0); HEMOGLOBIN 10.8 g/dL (13.0-17.5); LYMPH # 1.1 x10^3/uL (1.0-4.8); LYMPH % 27 % (24-48); MEAN CORPUSCULAR HEMOGLOBIN 31 pg (25-35); MEAN CORPUSCULAR HGB CONC 33 g/dL (31-37); MEAN CORPUSCULAR VOLUME 94 fL (79-100); MONO # 0.3 x10^3/uL (0.0-1.1); MONO % 7 % (0-9); NEUT # 2.8 x10^3uL (1.8-7.7); NEUT % 65 % (31-73); PLATELET COUNT 79 x10^3/uL (140-400); RED BLOOD COUNT 3.56 x10^6/uL (4.30-5.70); RED CELL DISTRIBUTION WIDTH 13.5 % (11.5-14.5); WHITE BLOOD COUNT 4.3 x10^3/uL (4.0-11.0)
--- NOTE | 2018-10-04 10:28 | PDOC ---
Subjective: Subjective: Feels better, says he "ate a little," not sure about diarrhea. Objective: Objective: No stools charted. Vital Signs: Vital Signs Date Time Temp Pulse Resp B/P (MAP) Pulse Ox O2 Delivery O2 Flow Rate FiO2 10/04/18 08:00 Room Air 10/04/18 07:25 98.3 87 20 108/80 (89) 98 98.3 10/03/18 16:22 2.0 Labs: Laboratory Tests Test 10/03/18 11:25 10/04/18 09:25 White Blood Count 3.9 x10^3/uL 4.3 x10^3/uL Red Blood Count 3.67 x10^6/uL 3.56 x10^6/uL Hemoglobin 11.4 g/dL 10.8 g/dL Hematocrit 34.4 % 33.3 % Mean Corpuscular Volume 94 fL 94 fL Mean Corpuscular Hemoglobin 31 pg 31 pg Mean Corpuscular Hemoglobin Concent 33 g/dL 33 g/dL Red Cell Distribution Width 13.4 % 13.5 % Platelet Count 81 x10^3/uL 79 x10^3/uL Neutrophils (%) (Auto) 60 % 65 % Lymphocytes (%) (Auto) 29 % 27 % Monocytes (%) (Auto) 11 % 7 % Eosinophils (%) (Auto) 0 % 0 % Basophils (%) (Auto) 1 % 0 % Neutrophils # (Auto) 2.3 x10^3uL 2.8 x10^3uL Lymphocytes # (Auto) 1.1 x10^3/uL 1.1 x10^3/uL Monocytes # (Auto) 0.4 x10^3/uL 0.3 x10^3/uL Eosinophils # (Auto) 0.0 x10^3/uL 0.0 x10^3/uL Basophils # (Auto) 0.0 x10^3/uL 0.0 x10^3/uL Sodium Level 134 mmol/L Potassium Level 4.5 mmol/L Chloride Level 93 mmol/L Carbon Dioxide Level 27 mmol/L Anion Gap 14 Blood Urea Nitrogen 78 mg/dL Creatinine 14.7 mg/dL Estimated GFR (Cockcroft-Gault) 4.5 BUN/Creatinine Ratio 5 Glucose Level 93 mg/dL Calcium Level 8.7 mg/dL Total Bilirubin 0.7 mg/dL Aspartate Amino Transf (AST/SGOT) 92 U/L Alanine Aminotransferase (ALT/SGPT) 78 U/L Alkaline Phosphatase 68 U/L Creatine Kinase 264 U/L Creatine Kinase MB (Mass) < 0.5 ng/mL Creatine Kinase MB Relative Index % Total Protein 6.8 g/dL Albumin 3.3 g/dL Albumin/Globulin Ratio 0.9 Lipase 630 U/L Imaging: Abd US IMPRESSION: 1. Thickened appearance of the gallbladder wall could be due to nondistention or cholecystitis. Correlate clinically and with lab values. 2. Atrophic echogenic appearing bilateral kidneys likely due to medical renal disease. Right lower quadrant renal transplant is identified. PE: GEN: dialyzing HEENT: keeps eyes closed LUNGS: room air ABD: non-tender NEURO/PSYCH: A & O 3 A/P: Vomiting, abd pain, diarrhea - better Mild transaminitis and mildly elevated lipase - CMP pending today Abnormal US - thickened GB wall ESRD on HD, chronic anemia -- Checking HIDA. Can change to PO PPI since apparently tolerating diet. ZACH MEZA Oct 04, 2018 10:28
--- NOTE | 2018-10-04 11:53 | NUR ---
SW following pt for anticipated dc needs. Chart reviewed. Pt lives at home with family. Spoke with Viktoriya barragan and confirmed pt has chair time for MWF at 1515. No discharge recommendations noted at this time. Will continue to follow.
[2018-10-04 15:20] VITALS: BP 153/103
--- NOTE | 2018-10-04 15:48 | RAD ---
Indication: Cholecystitis. TECHNIQUE: Nuclear medicine HIDA scan with 5.5 mCi of technetium 99m Choletec. COMPARISON: Anterior planar images obtained of the right upper quadrant at multiple intervals. FINDINGS: Gallbladder is confidently visualized at 10 minutes and continues to fill in a retrograde fashion. Small bowel activity is visualized at 30 minutes. IMPRESSION: No scintigraphic evidence of cystic duct obstruction. Electronically signed by: Rui Jara DO (10/04/2018 3:45 PM) [facility]
[2018-10-04 16:20] LABS: ALBUMIN 2.7 g/dL (3.4-5.0); ALBUMIN/GLOBULIN RATIO 0.6 (1.0-1.7); CALCIUM 8.8 mg/dL (8.5-10.1); CREATININE 9.1 mg/dL (0.7-1.3); GFR 7.8; POTASSIUM 4.1 mmol/L (3.5-5.1); TOTAL BILIRUBIN 0.5 mg/dL (0.2-1.0)
--- NOTE | 2018-10-04 18:02 | CONS ---
DATE OF CONSULTATION: REQUESTING PHYSICIAN: Hospitalist. REASON FOR CONSULTATION: Renal failure. HISTORY OF PRESENT ILLNESS: The patient is a 42-year-old gentleman with history of end-stage renal disease secondary to hypertensive nephrosclerosis. The patient is status post renal transplantation, which has failed. He is currently hemodialysis-dependent on Atyveen-Bcasewwa-Btmttety schedule. The patient currently admitted with nausea, vomiting, abdominal discomfort. He is found to have a nonobstructive bowel gas pattern on acute abdominal series. He has mildly elevated lipase and transaminase. He has concern for possible pancreatitis with other etiologies also being suggested by the GI service. Due to end-stage renal disease, he will need ongoing dialysis and assistance with comorbidities associated with the same. PAST MEDICAL HISTORY: 1. Hypertension. 2. End-stage renal disease, hemodialysis-dependent. 3. Kidney transplantation in 2008. 4. GE reflux disease. 5. Anemia of chronic kidney disease. 6. Secondary hyperparathyroidism. 7. Renal disease. 8. Focal segmental glomerulosclerosis. ALLERGIES: None. MEDICATIONS: Per med list. FAMILY HISTORY: Noncontributory for renal disease. He does have history of diabetes mellitus in the family. SOCIAL HISTORY: The patient resides independently, nonsmoker, nondrinker. REVIEW OF SYSTEMS: No headache, sinus problem, nasal drainage, epistaxis, change in vision or hearing. No difficulty swallowing. No fever, chills, cough, sputum production, or hemoptysis. No chest pain, shortness of breath, PND, orthopnea, dyspnea on exertion. Some abdominal discomfort, primarily nausea, vomiting, no diarrhea. No seizures or malignancies. PHYSICAL EXAMINATION: GENERAL: The patient awake, conversant, appropriate. HEENT: Clear. NECK: No increased JVD. No thyromegaly, mass, or adenopathy. LUNGS: Clear. CARDIAC: Without S3 or rub. ABDOMEN: Bowel sounds present, soft, nontender. No organomegaly, masses or bruits. EXTREMITIES: Without edema. NEUROLOGIC: Nonfocal, nonlocalizing sign. PSYCHIATRIC: Fair attention to detail, appropriate affect. LABORATORY DATA: White count 3.9, hemoglobin ____ and hematocrit 34%. Potassium 4.5, CO2 of 27, creatinine is 14.7, GFR 4.5, albumin 3.3, total bilirubin 0.7, AST 92, ALT 78. CK 264, lipase 630. IMPRESSION: 1. End-stage renal disease secondary to failed kidney transplantation following history of focal segmental glomerulosclerosis and hypertension. 2. Nausea, vomiting, abdominal discomfort -- possible pancreatitis. 3. Anemia of chronic kidney disease. PLAN: 1. Ongoing dialysis with dialysis today and then Monday, and Monday. 2. Hemoglobin is well controlled. 3. Abdominal ultrasound is pending. 4. Otherwise, per GI service. We will follow. CLEM SCHULTZ MD DR: COLLINS/radha JOB#: [id number] / [id number]
[2018-10-04 19:53] VITALS: BP 144/102
[2018-10-04] MEDS: CARVEDILOL 12.5 MG TABLET. PO SCH (21:23)
[2018-10-04] MEDS: amLODIPine BESYLATE 5 MG TABLET PO SCH (21:24)
[2018-10-04] MEDS: LISINOPRIL 20 MG TABLET PO SCH (21:24)
[2018-10-04 23:17] VITALS: BP 135/97
[2018-10-05 03:13] VITALS: BP 118/80
[2018-10-05 05:43] LABS: BASO % 0 % (0-3); EOS % 0 % (0-3); HEMATOCRIT 35.1 % (39.0-53.0); HEMOGLOBIN 11.5 g/dL (13.0-17.5); LYMPH # 1.5 x10^3/uL (1.0-4.8); LYMPH % 27 % (24-48); MEAN CORPUSCULAR HEMOGLOBIN 31 pg (25-35); MEAN CORPUSCULAR HGB CONC 33 g/dL (31-37); MEAN CORPUSCULAR VOLUME 94 fL (79-100); MONO # 0.6 x10^3/uL (0.0-1.1); MONO % 11 % (0-9); NEUT # 3.4 x10^3uL (1.8-7.7); NEUT % 62 % (31-73); PLATELET COUNT 87 x10^3/uL (140-400); RED BLOOD COUNT 3.73 x10^6/uL (4.30-5.70); RED CELL DISTRIBUTION WIDTH 13.8 % (11.5-14.5); WHITE BLOOD COUNT 5.5 x10^3/uL (4.0-11.0)
[2018-10-05 06:09] LABS: ALBUMIN 2.8 g/dL (3.4-5.0); ALBUMIN/GLOBULIN RATIO 0.7 (1.0-1.7); CALCIUM 8.7 mg/dL (8.5-10.1); CREATININE 11.1 mg/dL (0.7-1.3); GFR 6.2; POTASSIUM 4.4 mmol/L (3.5-5.1); TOTAL BILIRUBIN 0.5 mg/dL (0.2-1.0); TOTAL PROTEIN 6.9 g/dL (6.4-8.2)
[2018-10-05 07:00] VITALS: BP 128/84
[2018-10-05] MEDS ORDERED: PANTOPRAZOLE 40 MG TABLET.DR. PO SCH (07:30)
[2018-10-05] MEDS ORDERED: CALCIUM ACETATE 667 MG CAPSULE PO SCH (08:00)
[2018-10-05] MEDS: CARVEDILOL 12.5 MG TABLET. PO SCH (08:00)
--- NOTE | 2018-10-05 08:45 | PDOC ---
PROGRESS NOTES Chief Complaint Chief Complaint Vomiting, abd pain, diarrhea - father had similar symptoms GERD - ?on daily H2 juan francisco Mild transaminitis and mildly elevated lipase ESRD on HD - BUN 78, Cr 14.7 Chronic anemia - stable, iron deficient in 2017 CRC screen - average risk History of Present Illness History of Present Illness 42 y/o male, difficult historian. 4 days w/ n/v, abd pain and diarrhea. Asks for regular food. Parents present - his father was just discharged from this facility earlier today w/ similar symptoms and thinks the patient has the same thing. H/o ESRD and failed renal transplant. H/o GERD - his mom thinks he takes Pepcid daily. No dysphagia. No hematemesis, hematochezia, or melena. Family and social history difficult to obtain. 10/04: To dialysis He is asking for food today, Still c/o abdominal discomfort. HIDA - No scintigraphic evidence of cystic duct obstruction. Labs better, including LFTs. He would like to leave in time to make his 3pm dialysis appointment this afternoon Plan: Repeat CMP better HIDA scan per GI was negative Ok to d/c so long as nephrology agrees he can go to normally scheduled dialysis this afternoon Diet as tolerated Vitals Vitals Vital Signs Date Time Temp Pulse Resp B/P (MAP) Pulse Ox O2 Delivery O2 Flow Rate FiO2 10/05/18 07:00 98.1 68 16 128/84 (99) 92 Room Air 98.1 Physical Exam General: Alert, Cooperative Heart: Regular rate, Normal S1, Normal S2 Lungs: Clear, Wheezing Abdomen: Normal bowel sounds, Soft Extremities: No clubbing, No cyanosis Skin: No rashes, No breakdown Labs LABS Laboratory Tests Test 10/04/18 09:25 10/04/18 15:30 10/05/18 04:50 White Blood Count 4.3 x10^3/uL (4.0-11.0) 5.5 x10^3/uL (4.0-11.0) Red Blood Count 3.56 x10^6/uL (4.30-5.70) 3.73 x10^6/uL (4.30-5.70) Hemoglobin 10.8 g/dL (13.0-17.5) 11.5 g/dL (13.0-17.5) Hematocrit 33.3 % (39.0-53.0) 35.1 % (39.0-53.0) Mean Corpuscular Volume 94 fL (79-100) 94 fL (79-100) Mean Corpuscular Hemoglobin 31 pg (25-35) 31 pg (25-35) Mean Corpuscular Hemoglobin Concent 33 g/dL (31-37) 33 g/dL (31-37) Red Cell Distribution Width 13.5 % (11.5-14.5) 13.8 % (11.5-14.5) Platelet Count 79 x10^3/uL (140-400) 87 x10^3/uL (140-400) Neutrophils (%) (Auto) 65 % (31-73) 62 % (31-73) Lymphocytes (%) (Auto) 27 % (24-48) 27 % (24-48) Monocytes (%) (Auto) 7 % (0-9) 11 % (0-9) Eosinophils (%) (Auto) 0 % (0-3) 0 % (0-3) Basophils (%) (Auto) 0 % (0-3) 0 % (0-3) Neutrophils # (Auto) 2.8 x10^3uL (1.8-7.7) 3.4 x10^3uL (1.8-7.7) Lymphocytes # (Auto) 1.1 x10^3/uL (1.0-4.8) 1.5 x10^3/uL (1.0-4.8) Monocytes # (Auto) 0.3 x10^3/uL (0.0-1.1) 0.6 x10^3/uL (0.0-1.1) Eosinophils # (Auto) 0.0 x10^3/uL (0.0-0.7) 0.0 x10^3/uL (0.0-0.7) Basophils # (Auto) 0.0 x10^3/uL (0.0-0.2) 0.0 x10^3/uL (0.0-0.2) Sodium Level 139 mmol/L (136-145) 136 mmol/L (136-145) Potassium Level 4.1 mmol/L (3.5-5.1) 4.4 mmol/L (3.5-5.1) Chloride Level 99 mmol/L (98-107) 98 mmol/L (98-107) Carbon Dioxide Level 29 mmol/L (21-32) 26 mmol/L (21-32) Anion Gap 11 (6-14) 12 (6-14) Blood Urea Nitrogen 44 mg/dL (8-26) 55 mg/dL (8-26) Creatinine 9.1 mg/dL (0.7-1.3) 11.1 mg/dL (0.7-1.3) Estimated GFR (Cockcroft-Gault) 7.8 6.2 BUN/Creatinine Ratio 5 (6-20) 5 (6-20) Glucose Level 104 mg/dL (70-99) 123 mg/dL (70-99) Calcium Level 8.8 mg/dL (8.5-10.1) 8.7 mg/dL (8.5-10.1) Total Bilirubin 0.5 mg/dL (0.2-1.0) 0.5 mg/dL (0.2-1.0) Aspartate Amino Transf (AST/SGOT) 63 U/L (15-37) 60 U/L (15-37) Alanine Aminotransferase (ALT/SGPT) 56 U/L (16-63) 52 U/L (16-63) Alkaline Phosphatase 74 U/L (46-116) 83 U/L (46-116) Total Protein 7.0 g/dL (6.4-8.2) 6.9 g/dL (6.4-8.2) Albumin 2.7 g/dL (3.4-5.0) 2.8 g/dL (3.4-5.0) Albumin/Globulin Ratio 0.6 (1.0-1.7) 0.7 (1.0-1.7) Assessment and Plan Assessmemt and Plan Problems Medical Problems: (1) Acute gastroenteritis Status: Acute (2) Acute pancreatitis Status: Acute Comment Review of Relevant I have reviewed the following items stevie (where applicable) has been applied. Labs Laboratory Tests Test 10/03/18 11:25 10/04/18 09:25 10/04/18 15:30 10/05/18 04:50 White Blood Count 3.9 x10^3/uL (4.0-11.0) 4.3 x10^3/uL (4.0-11.0) 5.5 x10^3/uL (4.0-11.0) Red Blood Count 3.67 x10^6/uL (4.30-5.70) 3.56 x10^6/uL (4.30-5.70) 3.73 x10^6/uL (4.30-5.70) Hemoglobin 11.4 g/dL (13.0-17.5) 10.8 g/dL (13.0-17.5) 11.5 g/dL (13.0-17.5) Hematocrit 34.4 % (39.0-53.0) 33.3 % (39.0-53.0) 35.1 % (39.0-53.0) Mean Corpuscular Volume 94 fL (79-100) 94 fL (79-100) 94 fL (79-100) Mean Corpuscular Hemoglobin 31 pg (25-35) 31 pg (25-35) 31 pg (25-35) Mean Corpuscular Hemoglobin Concent 33 g/dL (31-37) 33 g/dL (31-37) 33 g/dL (31-37) Red Cell Distribution Width 13.4 % (11.5-14.5) 13.5 % (11.5-14.5) 13.8 % (11.5-14.5) Platelet Count 81 x10^3/uL (140-400) 79 x10^3/uL (140-400) 87 x10^3/uL (140-400) Neutrophils (%) (Auto) 60 % (31-73) 65 % (31-73) 62 % (31-73) Lymphocytes (%) (Auto) 29 % (24-48) 27 % (24-48) 27 % (24-48) Monocytes (%) (Auto) 11 % (0-9) 7 % (0-9) 11 % (0-9) Eosinophils (%) (Auto) 0 % (0-3) 0 % (0-3) 0 % (0-3) Basophils (%) (Auto) 1 % (0-3) 0 % (0-3) 0 % (0-3) Neutrophils # (Auto) 2.3 x10^3uL (1.8-7.7) 2.8 x10^3uL (1.8-7.7) 3.4 x10^3uL (1.8-7.7) Lymphocytes # (Auto) 1.1 x10^3/uL (1.0-4.8) 1.1 x10^3/uL (1.0-4.8) 1.5 x10^3/uL (1.0-4.8) Monocytes # (Auto) 0.4 x10^3/uL (0.0-1.1) 0.3 x10^3/uL (0.0-1.1) 0.6 x10^3/uL (0.0-1.1) Eosinophils # (Auto) 0.0 x10^3/uL (0.0-0.7) 0.0 x10^3/uL (0.0-0.7) 0.0 x10^3/uL (0.0-0.7) Basophils # (Auto) 0.0 x10^3/uL (0.0-0.2) 0.0 x10^3/uL (0.0-0.2) 0.0 x10^3/uL (0.0-0.2) Sodium Level 134 mmol/L (136-145) 139 mmol/L (136-145) 136 mmol/L (136-145) Potassium Level 4.5 mmol/L (3.5-5.1) 4.1 mmol/L (3.5-5.1) 4.4 mmol/L (3.5-5.1) Chloride Level 93 mmol/L (98-107) 99 mmol/L (98-107) 98 mmol/L (98-107) Carbon Dioxide Level 27 mmol/L (21-32) 29 mmol/L (21-32) 26 mmol/L (21-32) Anion Gap 14 (6-14) 11 (6-14) 12 (6-14) Blood Urea Nitrogen 78 mg/dL (8-26) 44 mg/dL (8-26) 55 mg/dL (8-26) Creatinine 14.7 mg/dL (0.7-1.3) 9.1 mg/dL (0.7-1.3) 11.1 mg/dL (0.7-1.3) Estimated GFR (Cockcroft-Gault) 4.5 7.8 6.2 BUN/Creatinine Ratio 5 (6-20) 5 (6-20) 5 (6-20) Glucose Level 93 mg/dL (70-99) 104 mg/dL (70-99) 123 mg/dL (70-99) Calcium Level 8.7 mg/dL (8.5-10.1) 8.8 mg/dL (8.5-10.1) 8.7 mg/dL (8.5-10.1) Total Bilirubin 0.7 mg/dL (0.2-1.0) 0.5 mg/dL (0.2-1.0) 0.5 mg/dL (0.2-1.0) Aspartate Amino Transf (AST/SGOT) 92 U/L (15-37) 63 U/L (15-37) 60 U/L (15-37) Alanine Aminotransferase (ALT/SGPT) 78 U/L (16-63) 56 U/L (16-63) 52 U/L (16-63) Alkaline Phosphatase 68 U/L (46-116) 74 U/L (46-116) 83 U/L (46-116) Creatine Kinase 264 U/L (39-308) Creatine Kinase MB (Mass) < 0.5 ng/mL (0.0-3.6) Creatine Kinase MB Relative Index % (0-4) Total Protein 6.8 g/dL (6.4-8.2) 7.0 g/dL (6.4-8.2) 6.9 g/dL (6.4-8.2) Albumin 3.3 g/dL (3.4-5.0) 2.7 g/dL (3.4-5.0) 2.8 g/dL (3.4-5.0) Albumin/Globulin Ratio 0.9 (1.0-1.7) 0.6 (1.0-1.7) 0.7 (1.0-1.7) Lipase 630 U/L (73-393) Laboratory Tests Test 10/04/18 09:25 10/04/18 15:30 10/05/18 04:50 White Blood Count 4.3 x10^3/uL (4.0-11.0) 5.5 x10^3/uL (4.0-11.0) Red Blood Count 3.56 x10^6/uL (4.30-5.70) 3.73 x10^6/uL (4.30-5.70) Hemoglobin 10.8 g/dL (13.0-17.5) 11.5 g/dL (13.0-17.5) Hematocrit 33.3 % (39.0-53.0) 35.1 % (39.0-53.0) Mean Corpuscular Volume 94 fL (79-100) 94 fL (79-100) Mean Corpuscular Hemoglobin 31 pg (25-35) 31 pg (25-35) Mean Corpuscular Hemoglobin Concent 33 g/dL (31-37) 33 g/dL (31-37) Red Cell Distribution Width 13.5 % (11.5-14.5) 13.8 % (11.5-14.5) Platelet Count 79 x10^3/uL (140-400) 87 x10^3/uL (140-400) Neutrophils (%) (Auto) 65 % (31-73) 62 % (31-73) Lymphocytes (%) (Auto) 27 % (24-48) 27 % (24-48) Monocytes (%) (Auto) 7 % (0-9) 11 % (0-9) Eosinophils (%) (Auto) 0 % (0-3) 0 % (0-3) Basophils (%) (Auto) 0 % (0-3) 0 % (0-3) Neutrophils # (Auto) 2.8 x10^3uL (1.8-7.7) 3.4 x10^3uL (1.8-7.7) Lymphocytes # (Auto) 1.1 x10^3/uL (1.0-4.8) 1.5 x10^3/uL (1.0-4.8) Monocytes # (Auto) 0.3 x10^3/uL (0.0-1.1) 0.6 x10^3/uL (0.0-1.1) Eosinophils # (Auto) 0.0 x10^3/uL (0.0-0.7) 0.0 x10^3/uL (0.0-0.7) Basophils # (Auto) 0.0 x10^3/uL (0.0-0.2) 0.0 x10^3/uL (0.0-0.2) Sodium Level 139 mmol/L (136-145) 136 mmol/L (136-145) Potassium Level 4.1 mmol/L (3.5-5.1) 4.4 mmol/L (3.5-5.1) Chloride Level 99 mmol/L (98-107) 98 mmol/L (98-107) Carbon Dioxide Level 29 mmol/L (21-32) 26 mmol/L (21-32) Anion Gap 11 (6-14) 12 (6-14) Blood Urea Nitrogen 44 mg/dL (8-26) 55 mg/dL (8-26) Creatinine 9.1 mg/dL (0.7-1.3) 11.1 mg/dL (0.7-1.3) Estimated GFR (Cockcroft-Gault) 7.8 6.2 BUN/Creatinine Ratio 5 (6-20) 5 (6-20) Glucose Level 104 mg/dL (70-99) 123 mg/dL (70-99) Calcium Level 8.8 mg/dL (8.5-10.1) 8.7 mg/dL (8.5-10.1) Total Bilirubin 0.5 mg/dL (0.2-1.0) 0.5 mg/dL (0.2-1.0) Aspartate Amino Transf (AST/SGOT) 63 U/L (15-37) 60 U/L (15-37) Alanine Aminotransferase (ALT/SGPT) 56 U/L (16-63) 52 U/L (16-63) Alkaline Phosphatase 74 U/L (46-116) 83 U/L (46-116) Total Protein 7.0 g/dL (6.4-8.2) 6.9 g/dL (6.4-8.2) Albumin 2.7 g/dL (3.4-5.0) 2.8 g/dL (3.4-5.0) Albumin/Globulin Ratio 0.6 (1.0-1.7) 0.7 (1.0-1.7) Medications Current Medications Sodium Chloride 1,000 ml @ 100 mls/hr Q10H IV Last administered on 10/03/18at 11:51; Start 10/03/18 at 12:00; Stop 10/03/18 at 21:59; Status DC Ondansetron HCl (Zofran) 4 mg 1X ONCE IV Last administered on 10/03/18at 11:51 ; Start 10/03/18 at 12:00; Stop 10/03/18 at 12:01; Status DC Ondansetron HCl (Zofran) 4 mg PRN Q8HRS PRN IV NAUSEA/VOMITING; Start 10/03/18 at 14:45; Stop 10/04/18 at 14:44; Status DC Morphine Sulfate (Morphine Sulfate) 2 mg PRN Q2HR PRN IV PAIN; Start 10/03/18 at 14:45; Stop 10/04/18 at 14:44; Status DC Sodium Chloride 1,000 ml @ 100 mls/hr Q10H IV Last administered on 10/04/18at 07:02; Start 10/03/18 at 14:34; Stop 10/04/18 at 14:33; Status DC Pantoprazole Sodium (PROTONIX VIAL for IV PUSH) 40 mg DAILYAC IVP Last administered on 10/04/18at 07:45; Start 10/03/18 at 17:30; Stop 10/04/18 at 10:28 ; Status DC Sodium Chloride 1,000 ml @ 1,000 mls/hr Q1H PRN IV hypotension; Start 10/04/18 at 07:41; Stop 10/04/18 at 13:40; Status DC Sodium Chloride 1,000 ml @ 400 mls/hr Q2H30M PRN IV PATENCY; Start 10/04/18 at 07:41; Stop 10/04/18 at 19:40; Status DC Info (PHARMACY MONITORING -- do not chart) 1 each PRN DAILY PRN MC SEE COMMENTS ; Start 10/04/18 at 07:45; Status UNV Info (PHARMACY MONITORING -- do not chart) 1 each PRN DAILY PRN MC SEE COMMENTS ; Start 10/04/18 at 07:45 Sodium Chloride 1,000 ml @ 1,000 mls/hr Q1H PRN IV hypotension; Start 10/04/18 at 08:35; Stop 10/04/18 at 14:34; Status DC Diphenhydramine HCl (Benadryl) 25 mg 1X PRN PRN IV ITCHING Last administered on 10/04/18at 09:04; Start 10/04/18 at 08:45; Stop 10/05/18 at 08:44 Diphenhydramine HCl (Benadryl) 25 mg 1X PRN PRN IV ITCHING; Start 10/04/18 at 08:45; Stop 10/05/18 at 08:44 Sodium Chloride 1,000 ml @ 400 mls/hr Q2H30M PRN IV PATENCY; Start 10/04/18 at 08:35; Stop 10/04/18 at 20:34; Status DC Info (PHARMACY MONITORING -- do not chart) 1 each PRN DAILY PRN MC SEE COMMENTS ; Start 10/04/18 at 08:45; Status UNV Pantoprazole Sodium (Protonix) 40 mg DAILYAC PO ; Start 10/05/18 at 07:30 Amlodipine Besylate (Norvasc) 5 mg DAILY PO Last administered on 10/04/18at 21: 24; Start 10/04/18 at 21:00 Lisinopril (Prinivil) 20 mg DAILY PO Last administered on 10/04/18at 21:24; Start 10/04/18 at 21:00 Calcium Acetate (Phoslo) 667 mg TIDWMEALS PO ; Start 10/05/18 at 08:00 Carvedilol (Coreg) 25 mg BIDWMEALS PO Last administered on 10/04/18at 21:23; Start 10/04/18 at 21:00 Active Scripts Active Reported Carvedilol 25 Mg Tablet 1 Tab PO BID Lisinopril 20 Mg Tablet 1 Tab PO DAILY Calcium Acetate 667 Mg Tablet 667 Mg PO TIDWMEALS Vitals/I & O Vital Sign - Last 24 Hours 10/04/18 10/04/18 10/04/18 10/04/18 15:20 19:53 20:22 21:23 Temp 98.1 98.1 98.1 98.1 Pulse 108 111 111 Resp 19 B/P (MAP) 153/103 (120) 144/102 (116) 144/102 Pulse Ox 95 91 O2 Delivery Room Air Room Air Room Air 10/04/18 10/04/18 10/04/18 10/05/18 21:24 21:24 23:17 03:13 Temp 97.4 97.8 97.4 97.8 Pulse 111 111 101 84 Resp 16 16 B/P (MAP) 144/102 144/102 135/97 (110) 118/80 (93) Pulse Ox 90 95 O2 Delivery Room Air Room Air 10/05/18 07:00 Temp 98.1 98.1 Pulse 68 Resp 16 B/P (MAP) 128/84 (99) Pulse Ox 92 O2 Delivery Room Air Intake and Output 10/04/18 10/04/18 10/05/18 14:59 22:59 06:59 Intake Total 100 ml 220 ml 480 ml Output Total 0 ml 0 ml Balance 100 ml 220 ml 480 ml COURTNEY CASAS MD Oct 05, 2018 08:45
[2018-10-05] MEDS: LISINOPRIL 20 MG TABLET PO SCH (09:00)
[2018-10-05] MEDS: amLODIPine BESYLATE 5 MG TABLET PO SCH (09:00)
[2018-10-05] MEDS ORDERED: Pantoprazole PO (09:35)
--- NOTE | 2018-10-05 09:39 | PDOC3 ---
Discharge Summary Visit Information Date of Admission: Oct 03, 2018 Date of Discharge: Oct 05, 2018 Admitting Diagnosis: Acute gastroenteritis and pancreatitis Final Diagnosis Problems Medical Problems: (1) Acute gastroenteritis Status: Acute (2) Acute pancreatitis Status: Acute Brief Hospital Course Allergies Allergies Coded Allergies Type Severity Reaction Last Updated Verified No Known Drug Allergies 05/08/17 No Vital Signs Vital Signs Date Time Temp Pulse Resp B/P (MAP) Pulse Ox O2 Delivery O2 Flow Rate FiO2 10/05/18 07:00 98.1 68 16 128/84 (99) 92 Room Air 98.1 Lab Results Laboratory Tests Test 10/03/18 11:25 10/04/18 09:25 10/04/18 15:30 10/05/18 04:50 White Blood Count 3.9 x10^3/uL (4.0-11.0) 4.3 x10^3/uL (4.0-11.0) 5.5 x10^3/uL (4.0-11.0) Red Blood Count 3.67 x10^6/uL (4.30-5.70) 3.56 x10^6/uL (4.30-5.70) 3.73 x10^6/uL (4.30-5.70) Hemoglobin 11.4 g/dL (13.0-17.5) 10.8 g/dL (13.0-17.5) 11.5 g/dL (13.0-17.5) Hematocrit 34.4 % (39.0-53.0) 33.3 % (39.0-53.0) 35.1 % (39.0-53.0) Mean Corpuscular Volume 94 fL (79-100) 94 fL (79-100) 94 fL (79-100) Mean Corpuscular Hemoglobin 31 pg (25-35) 31 pg (25-35) 31 pg (25-35) Mean Corpuscular Hemoglobin Concent 33 g/dL (31-37) 33 g/dL (31-37) 33 g/dL (31-37) Red Cell Distribution Width 13.4 % (11.5-14.5) 13.5 % (11.5-14.5) 13.8 % (11.5-14.5) Platelet Count 81 x10^3/uL (140-400) 79 x10^3/uL (140-400) 87 x10^3/uL (140-400) Neutrophils (%) (Auto) 60 % (31-73) 65 % (31-73) 62 % (31-73) Lymphocytes (%) (Auto) 29 % (24-48) 27 % (24-48) 27 % (24-48) Monocytes (%) (Auto) 11 % (0-9) 7 % (0-9) 11 % (0-9) Eosinophils (%) (Auto) 0 % (0-3) 0 % (0-3) 0 % (0-3) Basophils (%) (Auto) 1 % (0-3) 0 % (0-3) 0 % (0-3) Neutrophils # (Auto) 2.3 x10^3uL (1.8-7.7) 2.8 x10^3uL (1.8-7.7) 3.4 x10^3uL (1.8-7.7) Lymphocytes # (Auto) 1.1 x10^3/uL (1.0-4.8) 1.1 x10^3/uL (1.0-4.8) 1.5 x10^3/uL (1.0-4.8) Monocytes # (Auto) 0.4 x10^3/uL (0.0-1.1) 0.3 x10^3/uL (0.0-1.1) 0.6 x10^3/uL (0.0-1.1) Eosinophils # (Auto) 0.0 x10^3/uL (0.0-0.7) 0.0 x10^3/uL (0.0-0.7) 0.0 x10^3/uL (0.0-0.7) Basophils # (Auto) 0.0 x10^3/uL (0.0-0.2) 0.0 x10^3/uL (0.0-0.2) 0.0 x10^3/uL (0.0-0.2) Sodium Level 134 mmol/L (136-145) 139 mmol/L (136-145) 136 mmol/L (136-145) Potassium Level 4.5 mmol/L (3.5-5.1) 4.1 mmol/L (3.5-5.1) 4.4 mmol/L (3.5-5.1) Chloride Level 93 mmol/L (98-107) 99 mmol/L (98-107) 98 mmol/L (98-107) Carbon Dioxide Level 27 mmol/L (21-32) 29 mmol/L (21-32) 26 mmol/L (21-32) Anion Gap 14 (6-14) 11 (6-14) 12 (6-14) Blood Urea Nitrogen 78 mg/dL (8-26) 44 mg/dL (8-26) 55 mg/dL (8-26) Creatinine 14.7 mg/dL (0.7-1.3) 9.1 mg/dL (0.7-1.3) 11.1 mg/dL (0.7-1.3) Estimated GFR (Cockcroft-Gault) 4.5 7.8 6.2 BUN/Creatinine Ratio 5 (6-20) 5 (6-20) 5 (6-20) Glucose Level 93 mg/dL (70-99) 104 mg/dL (70-99) 123 mg/dL (70-99) Calcium Level 8.7 mg/dL (8.5-10.1) 8.8 mg/dL (8.5-10.1) 8.7 mg/dL (8.5-10.1) Total Bilirubin 0.7 mg/dL (0.2-1.0) 0.5 mg/dL (0.2-1.0) 0.5 mg/dL (0.2-1.0) Aspartate Amino Transf (AST/SGOT) 92 U/L (15-37) 63 U/L (15-37) 60 U/L (15-37) Alanine Aminotransferase (ALT/SGPT) 78 U/L (16-63) 56 U/L (16-63) 52 U/L (16-63) Alkaline Phosphatase 68 U/L (46-116) 74 U/L (46-116) 83 U/L (46-116) Creatine Kinase 264 U/L (39-308) Creatine Kinase MB (Mass) < 0.5 ng/mL (0.0-3.6) Creatine Kinase MB Relative Index % (0-4) Total Protein 6.8 g/dL (6.4-8.2) 7.0 g/dL (6.4-8.2) 6.9 g/dL (6.4-8.2) Albumin 3.3 g/dL (3.4-5.0) 2.7 g/dL (3.4-5.0) 2.8 g/dL (3.4-5.0) Albumin/Globulin Ratio 0.9 (1.0-1.7) 0.6 (1.0-1.7) 0.7 (1.0-1.7) Lipase 630 U/L (73-393) Laboratory Tests Test 10/04/18 15:30 10/05/18 04:50 Sodium Level 139 mmol/L (136-145) 136 mmol/L (136-145) Potassium Level 4.1 mmol/L (3.5-5.1) 4.4 mmol/L (3.5-5.1) Chloride Level 99 mmol/L (98-107) 98 mmol/L (98-107) Carbon Dioxide Level 29 mmol/L (21-32) 26 mmol/L (21-32) Anion Gap 11 (6-14) 12 (6-14) Blood Urea Nitrogen 44 mg/dL (8-26) 55 mg/dL (8-26) Creatinine 9.1 mg/dL (0.7-1.3) 11.1 mg/dL (0.7-1.3) Estimated GFR (Cockcroft-Gault) 7.8 6.2 BUN/Creatinine Ratio 5 (6-20) 5 (6-20) Glucose Level 104 mg/dL (70-99) 123 mg/dL (70-99) Calcium Level 8.8 mg/dL (8.5-10.1) 8.7 mg/dL (8.5-10.1) Total Bilirubin 0.5 mg/dL (0.2-1.0) 0.5 mg/dL (0.2-1.0) Aspartate Amino Transf (AST/SGOT) 63 U/L (15-37) 60 U/L (15-37) Alanine Aminotransferase (ALT/SGPT) 56 U/L (16-63) 52 U/L (16-63) Alkaline Phosphatase 74 U/L (46-116) 83 U/L (46-116) Total Protein 7.0 g/dL (6.4-8.2) 6.9 g/dL (6.4-8.2) Albumin 2.7 g/dL (3.4-5.0) 2.8 g/dL (3.4-5.0) Albumin/Globulin Ratio 0.6 (1.0-1.7) 0.7 (1.0-1.7) White Blood Count 5.5 x10^3/uL (4.0-11.0) Red Blood Count 3.73 x10^6/uL (4.30-5.70) Hemoglobin 11.5 g/dL (13.0-17.5) Hematocrit 35.1 % (39.0-53.0) Mean Corpuscular Volume 94 fL (79-100) Mean Corpuscular Hemoglobin 31 pg (25-35) Mean Corpuscular Hemoglobin Concent 33 g/dL (31-37) Red Cell Distribution Width 13.8 % (11.5-14.5) Platelet Count 87 x10^3/uL (140-400) Neutrophils (%) (Auto) 62 % (31-73) Lymphocytes (%) (Auto) 27 % (24-48) Monocytes (%) (Auto) 11 % (0-9) Eosinophils (%) (Auto) 0 % (0-3) Basophils (%) (Auto) 0 % (0-3) Neutrophils # (Auto) 3.4 x10^3uL (1.8-7.7) Lymphocytes # (Auto) 1.5 x10^3/uL (1.0-4.8) Monocytes # (Auto) 0.6 x10^3/uL (0.0-1.1) Eosinophils # (Auto) 0.0 x10^3/uL (0.0-0.7) Basophils # (Auto) 0.0 x10^3/uL (0.0-0.2) Brief Hospital Course 42 y/o male, difficult historian. 4 days w/ n/v, abd pain and diarrhea. Asks for regular food. Parents present - his father was just discharged from this facility earlier today w/ similar symptoms and thinks the patient has the same thing. H/o ESRD and failed renal transplant. H/o GERD - his mom thinks he takes Pepcid daily. No dysphagia. No hematemesis, hematochezia, or melena. Family and social history difficult to obtain. 10/04: To dialysis. Seen in consultation by GI and Nephrology He is asking for food today, Still c/o abdominal discomfort. HIDA - No scintigraphic evidence of cystic duct obstruction. Labs better, including LFTs. He would like to leave in time to make his 3pm dialysis appointment this afternoon Greater than 30 minutes spent on discharge. Home on protonix daily Vomiting, abd pain, diarrhea - father had similar symptoms GERD - ?on daily H2 juan francisco Mild transaminitis and mildly elevated lipase ESRD on HD - BUN 78, Cr 14.7 Chronic anemia - stable, iron deficient in 2016 CRC screen - average risk Plan: Repeat CMP better HIDA scan per GI was negative Ok to d/c so long as nephrology agrees he can go to normally scheduled dialysis this afternoon Diet as tolerated Discharge Information Condition at Discharge: Improved Follow Up: Weeks (2) Disposition/Orders: D/C to Home Scheduled Amlodipine Besylate (Amlodipine Besylate) 5 Mg Tablet, 5 MG PO DAILY, (Reported) Entered as Reported by: SALLY TORRES on 12/10/171206 Last Action: Continued on 10/04/182037 by TJ FRANCO Calcium Acetate (Calcium Acetate) 667 Mg Tablet, 667 MG PO TIDWMEALS for DIALYSIS PATIENTS, (Reported) Entered as Reported by: SALLY TORRES on 12/10/171206 Last Action: Converted on 10/04/182037 by TJ FRANCO Carvedilol (Carvedilol) 25 Mg Tablet, 1 TAB PO BID, #180 Ref 1 (Reported) Entered as Reported by: SALLY TORRES on 12/10/171206 Last Action: Converted on 10/04/182037 by TJ FRANCO Lisinopril (Lisinopril) 20 Mg Tablet, 1 TAB PO DAILY, #30 Ref 5 (Reported) Entered as Reported by: SALLY TORRES on 12/10/171206 Last Action: Continued on 10/04/182037 by TJ FRANCO [Pantoprazole] 40 MG TABLET., 40 MG PO DAILYAC for GERD for 30 Days, #30 Ref 2 Prescribed by: COURTNEY CASAS MD on 10/05/18 0935 COURTNEY CASAS MD Oct 05, 2018 09:39
--- NOTE | 2018-10-05 10:58 | PDOC ---
PROGRESS NOTES Subjective Subjective SEEN IN FOLLOW UP OF ESRD Objective Objective Vital Signs Date Time Temp Pulse Resp B/P (MAP) Pulse Ox O2 Delivery O2 Flow Rate FiO2 10/05/18 08:00 Room Air 2.0 10/05/18 07:00 98.1 68 16 128/84 (99) 92 98.1 Intake and Output 10/05/18 06:59 Intake Total 800 ml Output Total 0 ml Balance 800 ml Intake Oral 800 ml Output Urine Total 0 ml # Voids 1 Physical Exam Abdomen: Normal bowel sounds, Soft, No tenderness, No hepatosplenomegaly, No masses Heart: Regular rate, Normal S1, Normal S2, No murmurs, Gallops Extremities: No clubbing, No cyanosis, No edema, Normal pulses, No tenderness/ swelling General: Alert, Oriented X3, Cooperative, No acute distress Lungs: Clear to auscultation, Normal air movement Psych/Mental Status: Mental status NL, Mood NL Diagnosis RENAL FAILURE: ESRD Assessment Assessment Problems Medical Problems: (1) Acute gastroenteritis Status: Acute (2) Acute pancreatitis Status: Acute Plan Plan of Care DOING BETTER. FOR DIALYSIS TODAY AND THEN Q [facility] Comment Review of Relevant I have reviewed the following items stevie (where applicable) has been applied. Labs Laboratory Tests Test 10/03/18 11:25 10/04/18 09:25 10/04/18 15:30 10/05/18 04:50 White Blood Count 3.9 x10^3/uL (4.0-11.0) 4.3 x10^3/uL (4.0-11.0) 5.5 x10^3/uL (4.0-11.0) Red Blood Count 3.67 x10^6/uL (4.30-5.70) 3.56 x10^6/uL (4.30-5.70) 3.73 x10^6/uL (4.30-5.70) Hemoglobin 11.4 g/dL (13.0-17.5) 10.8 g/dL (13.0-17.5) 11.5 g/dL (13.0-17.5) Hematocrit 34.4 % (39.0-53.0) 33.3 % (39.0-53.0) 35.1 % (39.0-53.0) Mean Corpuscular Volume 94 fL (79-100) 94 fL (79-100) 94 fL (79-100) Mean Corpuscular Hemoglobin 31 pg (25-35) 31 pg (25-35) 31 pg (25-35) Mean Corpuscular Hemoglobin Concent 33 g/dL (31-37) 33 g/dL (31-37) 33 g/dL (31-37) Red Cell Distribution Width 13.4 % (11.5-14.5) 13.5 % (11.5-14.5) 13.8 % (11.5-14.5) Platelet Count 81 x10^3/uL (140-400) 79 x10^3/uL (140-400) 87 x10^3/uL (140-400) Neutrophils (%) (Auto) 60 % (31-73) 65 % (31-73) 62 % (31-73) Lymphocytes (%) (Auto) 29 % (24-48) 27 % (24-48) 27 % (24-48) Monocytes (%) (Auto) 11 % (0-9) 7 % (0-9) 11 % (0-9) Eosinophils (%) (Auto) 0 % (0-3) 0 % (0-3) 0 % (0-3) Basophils (%) (Auto) 1 % (0-3) 0 % (0-3) 0 % (0-3) Neutrophils # (Auto) 2.3 x10^3uL (1.8-7.7) 2.8 x10^3uL (1.8-7.7) 3.4 x10^3uL (1.8-7.7) Lymphocytes # (Auto) 1.1 x10^3/uL (1.0-4.8) 1.1 x10^3/uL (1.0-4.8) 1.5 x10^3/uL (1.0-4.8) Monocytes # (Auto) 0.4 x10^3/uL (0.0-1.1) 0.3 x10^3/uL (0.0-1.1) 0.6 x10^3/uL (0.0-1.1) Eosinophils # (Auto) 0.0 x10^3/uL (0.0-0.7) 0.0 x10^3/uL (0.0-0.7) 0.0 x10^3/uL (0.0-0.7) Basophils # (Auto) 0.0 x10^3/uL (0.0-0.2) 0.0 x10^3/uL (0.0-0.2) 0.0 x10^3/uL (0.0-0.2) Sodium Level 134 mmol/L (136-145) 139 mmol/L (136-145) 136 mmol/L (136-145) Potassium Level 4.5 mmol/L (3.5-5.1) 4.1 mmol/L (3.5-5.1) 4.4 mmol/L (3.5-5.1) Chloride Level 93 mmol/L (98-107) 99 mmol/L (98-107) 98 mmol/L (98-107) Carbon Dioxide Level 27 mmol/L (21-32) 29 mmol/L (21-32) 26 mmol/L (21-32) Anion Gap 14 (6-14) 11 (6-14) 12 (6-14) Blood Urea Nitrogen 78 mg/dL (8-26) 44 mg/dL (8-26) 55 mg/dL (8-26) Creatinine 14.7 mg/dL (0.7-1.3) 9.1 mg/dL (0.7-1.3) 11.1 mg/dL (0.7-1.3) Estimated GFR (Cockcroft-Gault) 4.5 7.8 6.2 BUN/Creatinine Ratio 5 (6-20) 5 (6-20) 5 (6-20) Glucose Level 93 mg/dL (70-99) 104 mg/dL (70-99) 123 mg/dL (70-99) Calcium Level 8.7 mg/dL (8.5-10.1) 8.8 mg/dL (8.5-10.1) 8.7 mg/dL (8.5-10.1) Total Bilirubin 0.7 mg/dL (0.2-1.0) 0.5 mg/dL (0.2-1.0) 0.5 mg/dL (0.2-1.0) Aspartate Amino Transf (AST/SGOT) 92 U/L (15-37) 63 U/L (15-37) 60 U/L (15-37) Alanine Aminotransferase (ALT/SGPT) 78 U/L (16-63) 56 U/L (16-63) 52 U/L (16-63) Alkaline Phosphatase 68 U/L (46-116) 74 U/L (46-116) 83 U/L (46-116) Creatine Kinase 264 U/L (39-308) Creatine Kinase MB (Mass) < 0.5 ng/mL (0.0-3.6) Creatine Kinase MB Relative Index % (0-4) Total Protein 6.8 g/dL (6.4-8.2) 7.0 g/dL (6.4-8.2) 6.9 g/dL (6.4-8.2) Albumin 3.3 g/dL (3.4-5.0) 2.7 g/dL (3.4-5.0) 2.8 g/dL (3.4-5.0) Albumin/Globulin Ratio 0.9 (1.0-1.7) 0.6 (1.0-1.7) 0.7 (1.0-1.7) Lipase 630 U/L (73-393) Laboratory Tests Test 10/04/18 15:30 10/05/18 04:50 Sodium Level 139 mmol/L (136-145) 136 mmol/L (136-145) Potassium Level 4.1 mmol/L (3.5-5.1) 4.4 mmol/L (3.5-5.1) Chloride Level 99 mmol/L (98-107) 98 mmol/L (98-107) Carbon Dioxide Level 29 mmol/L (21-32) 26 mmol/L (21-32) Anion Gap 11 (6-14) 12 (6-14) Blood Urea Nitrogen 44 mg/dL (8-26) 55 mg/dL (8-26) Creatinine 9.1 mg/dL (0.7-1.3) 11.1 mg/dL (0.7-1.3) Estimated GFR (Cockcroft-Gault) 7.8 6.2 BUN/Creatinine Ratio 5 (6-20) 5 (6-20) Glucose Level 104 mg/dL (70-99) 123 mg/dL (70-99) Calcium Level 8.8 mg/dL (8.5-10.1) 8.7 mg/dL (8.5-10.1) Total Bilirubin 0.5 mg/dL (0.2-1.0) 0.5 mg/dL (0.2-1.0) Aspartate Amino Transf (AST/SGOT) 63 U/L (15-37) 60 U/L (15-37) Alanine Aminotransferase (ALT/SGPT) 56 U/L (16-63) 52 U/L (16-63) Alkaline Phosphatase 74 U/L (46-116) 83 U/L (46-116) Total Protein 7.0 g/dL (6.4-8.2) 6.9 g/dL (6.4-8.2) Albumin 2.7 g/dL (3.4-5.0) 2.8 g/dL (3.4-5.0) Albumin/Globulin Ratio 0.6 (1.0-1.7) 0.7 (1.0-1.7) White Blood Count 5.5 x10^3/uL (4.0-11.0) Red Blood Count 3.73 x10^6/uL (4.30-5.70) Hemoglobin 11.5 g/dL (13.0-17.5) Hematocrit 35.1 % (39.0-53.0) Mean Corpuscular Volume 94 fL (79-100) Mean Corpuscular Hemoglobin 31 pg (25-35) Mean Corpuscular Hemoglobin Concent 33 g/dL (31-37) Red Cell Distribution Width 13.8 % (11.5-14.5) Platelet Count 87 x10^3/uL (140-400) Neutrophils (%) (Auto) 62 % (31-73) Lymphocytes (%) (Auto) 27 % (24-48) Monocytes (%) (Auto) 11 % (0-9) Eosinophils (%) (Auto) 0 % (0-3) Basophils (%) (Auto) 0 % (0-3) Neutrophils # (Auto) 3.4 x10^3uL (1.8-7.7) Lymphocytes # (Auto) 1.5 x10^3/uL (1.0-4.8) Monocytes # (Auto) 0.6 x10^3/uL (0.0-1.1) Eosinophils # (Auto) 0.0 x10^3/uL (0.0-0.7) Basophils # (Auto) 0.0 x10^3/uL (0.0-0.2) Medications Current Medications Sodium Chloride 1,000 ml @ 100 mls/hr Q10H IV Last administered on 10/03/18at 11:51; Start 10/03/18 at 12:00; Stop 10/03/18 at 21:59; Status DC Ondansetron HCl (Zofran) 4 mg 1X ONCE IV Last administered on 10/03/18at 11:51 ; Start 10/03/18 at 12:00; Stop 10/03/18 at 12:01; Status DC Ondansetron HCl (Zofran) 4 mg PRN Q8HRS PRN IV NAUSEA/VOMITING; Start 10/03/18 at 14:45; Stop 10/04/18 at 14:44; Status DC Morphine Sulfate (Morphine Sulfate) 2 mg PRN Q2HR PRN IV PAIN; Start 10/03/18 at 14:45; Stop 10/04/18 at 14:44; Status DC Sodium Chloride 1,000 ml @ 100 mls/hr Q10H IV Last administered on 10/04/18at 07:02; Start 10/03/18 at 14:34; Stop 10/04/18 at 14:33; Status DC Pantoprazole Sodium (PROTONIX VIAL for IV PUSH) 40 mg DAILYAC IVP Last administered on 10/04/18at 07:45; Start 10/03/18 at 17:30; Stop 10/04/18 at 10:28 ; Status DC Sodium Chloride 1,000 ml @ 1,000 mls/hr Q1H PRN IV hypotension; Start 10/04/18 at 07:41; Stop 10/04/18 at 13:40; Status DC Sodium Chloride 1,000 ml @ 400 mls/hr Q2H30M PRN IV PATENCY; Start 10/04/18 at 07:41; Stop 10/04/18 at 19:40; Status DC Info (PHARMACY MONITORING -- do not chart) 1 each PRN DAILY PRN MC SEE COMMENTS ; Start 10/04/18 at 07:45; Status UNV Info (PHARMACY MONITORING -- do not chart) 1 each PRN DAILY PRN MC SEE COMMENTS ; Start 10/04/18 at 07:45 Sodium Chloride 1,000 ml @ 1,000 mls/hr Q1H PRN IV hypotension; Start 10/04/18 at 08:35; Stop 10/04/18 at 14:34; Status DC Diphenhydramine HCl (Benadryl) 25 mg 1X PRN PRN IV ITCHING Last administered on 10/04/18at 09:04; Start 10/04/18 at 08:45; Stop 10/05/18 at 08:44; Status DC Diphenhydramine HCl (Benadryl) 25 mg 1X PRN PRN IV ITCHING; Start 10/04/18 at 08:45; Stop 10/05/18 at 08:44; Status DC Sodium Chloride 1,000 ml @ 400 mls/hr Q2H30M PRN IV PATENCY; Start 10/04/18 at 08:35; Stop 10/04/18 at 20:34; Status DC Info (PHARMACY MONITORING -- do not chart) 1 each PRN DAILY PRN MC SEE COMMENTS ; Start 10/04/18 at 08:45; Status UNV Pantoprazole Sodium (Protonix) 40 mg DAILYAC PO Last administered on 10/05/18at 08:55; Start 10/05/18 at 07:30 Amlodipine Besylate (Norvasc) 5 mg DAILY PO Last administered on 10/04/18at 21: 24; Start 10/04/18 at 21:00 Lisinopril (Prinivil) 20 mg DAILY PO Last administered on 10/04/18at 21:24; Start 10/04/18 at 21:00 Calcium Acetate (Phoslo) 667 mg TIDWMEALS PO Last administered on 10/05/18at 08: 54; Start 10/05/18 at 08:00 Carvedilol (Coreg) 25 mg BIDWMEALS PO Last administered on 10/04/18at 21:23; Start 10/04/18 at 21:00 Active Scripts Active [Pantoprazole] 40 MG Tablet.dr 40 Mg PO DAILYAC 30 Days Reported Carvedilol 25 Mg Tablet 1 Tab PO BID Amlodipine Besylate 5 Mg Tablet 5 Mg PO DAILY Lisinopril 20 Mg Tablet 1 Tab PO DAILY Calcium Acetate 667 Mg Tablet 667 Mg PO TIDWMEALS Vitals/I & O Vital Sign - Last 24 Hours 10/04/18 10/04/18 10/04/18 10/04/18 15:20 19:53 20:22 21:23 Temp 98.1 98.1 98.1 98.1 Pulse 108 111 111 Resp 19 B/P (MAP) 153/103 (120) 144/102 (116) 144/102 Pulse Ox 95 91 O2 Delivery Room Air Room Air Room Air 10/04/18 10/04/18 10/04/18 10/05/18 21:24 21:24 23:17 03:13 Temp 97.4 97.8 97.4 97.8 Pulse 111 111 101 84 Resp 16 16 B/P (MAP) 144/102 144/102 135/97 (110) 118/80 (93) Pulse Ox 90 95 O2 Delivery Room Air Room Air 10/05/18 10/05/18 07:00 08:00 Temp 98.1 98.1 Pulse 68 Resp 16 B/P (MAP) 128/84 (99) Pulse Ox 92 O2 Delivery Room Air Room Air O2 Flow Rate 2.0 Intake and Output 10/04/18 10/04/18 10/05/18 14:59 22:59 06:59 Intake Total 100 ml 220 ml 480 ml Output Total 0 ml 0 ml Balance 100 ml 220 ml 480 ml CLEM SCHULTZ MD Oct 05, 2018 10:58
[2018-10-05 11:00] VITALS: BP 117/84
--- NOTE | 2018-10-05 12:12 | NUR ---
Discharge Note: ANICETO OSBORN Discharge instructions and discharge home medications reviewed with Patient and a copy given. All questions have been answered and understanding verbalized. The following instructions and handouts were given: F/U with PCP within one week and continue Dialysis as scheduled. Discontinued lines and drains: Peripheral IV intact. Patient discharged to Home or Self Care with [facility] transportation via Wheelchair.
== END 2018-10-05 12:11 | disposition home or self-care (01) | DRG 438 ==
LOC: ER 10:56 → 6 SOUTH 14:36
PROVIDERS: ADMIT Internal Medicine; ATTEND Internal Medicine
PROC: 5A1D70Z Performance of Urinary Filtration, Intermittent, Less than 6 Hours Per Day (ICD-10-PCS; principal; 2018-10-04)
DX: K85.90 Acute pancreatitis without necrosis or infection, unspecified (principal); N18.6 End stage renal disease; E87.1 Hypo-osmolality and hyponatremia; E46 Unspecified protein-calorie malnutrition; Z94.0 Kidney transplant status; N25.81 Secondary hyperparathyroidism of renal origin; I12.0 Hypertensive chronic kidney disease with stage 5 chronic kidney disease or end stage renal disease; K52.9 Noninfective gastroenteritis and colitis, unspecified; J45.909 Unspecified asthma, uncomplicated; F41.9 Anxiety disorder, unspecified; D72.819 Decreased white blood cell count, unspecified; K21.9 Gastro-esophageal reflux disease without esophagitis; D63.1 Anemia in chronic kidney disease; Z99.2 Dependence on renal dialysis; Z83.3 Family history of diabetes mellitus; Z68.22 Body mass index [BMI] 22.0-22.9, adult
CPT/HCPCS: 36415; 74022; 76700; 78226; 80053; 82550; 82553; 83690; 85025; 93005; 96361; 96374; A9537; C9113; J1200; J2405; J7030; 99285-25

== ENCOUNTER 2019-11-06 15:06 | Emergency (ER) | payer OTHER ==
[~2019-11-06] VITALS: Ht 167.6 cm; Wt 57.0 kg
[~2019-11-06 15:06] MED LIST changes: +Pantoprazole PO
[2019-11-06] MEDS ORDERED: IV NORMAL SALINE 500ML BAG 500 ML IV ONE (15:15)
[2019-11-06 15:48] LABS: BASO % 1 % (0-3); EOS # 0.5 x10^3/uL (0.0-0.7); EOS % 13 % (0-3); HEMATOCRIT 38.3 % (39.0-53.0); HEMOGLOBIN 12.8 g/dL (13.0-17.5); LYMPH # 1.6 x10^3/uL (1.0-4.8); LYMPH % 37 % (24-48); MEAN CORPUSCULAR HEMOGLOBIN 32 pg (25-35); MEAN CORPUSCULAR HGB CONC 33 g/dL (31-37); MEAN CORPUSCULAR VOLUME 94 fL (79-100); MONO # 0.4 x10^3/uL (0.0-1.1); MONO % 9 % (0-9); NEUT # 1.7 x10^3/uL (1.8-7.7); NEUT % 41 % (31-73); PLATELET COUNT 155 x10^3/uL (140-400); RED BLOOD COUNT 4.07 x10^6/uL (4.30-5.70); RED CELL DISTRIBUTION WIDTH 14.6 % (11.5-14.5); WHITE BLOOD COUNT 4.2 x10^3/uL (4.0-11.0)
[2019-11-06 16:01] LABS: CALCIUM 8.7 mg/dL (8.5-10.1); CREATININE 6.7 mg/dL (0.7-1.3); GFR 11.1; POTASSIUM 3.4 mmol/L (3.5-5.1)
--- NOTE | 2019-11-06 16:03 | EKG ---
[facility] [address] [place] [address] Test Date: 2019-11-06 Test Time: 15:18:48 Pat Name: ANICETO OSBORN Department: Room: Gender: M Manager Dental: : 1975 Requested By: AUBREE DE ANDA Order Number: [id number] Reading MD: Elijah Berkowitz MD Measurements Intervals [place] Rate: 62 P: 72 DC: 176 QRS: 48 QRSD: 100 T: 248 QT: 478 QTc: 488 Interpretive Statements SINUS RHYTHM LEFT ATRIAL ABNORMALITY LVH WITH REPOLARIZATION ABNORMALITY PROLONGED QT ABNORMAL ECG Electronically Signed On 11-06-2019 17:56:51 CDT by Elijah Berkowitz MD
--- NOTE | 2019-11-06 16:04 | RAD ---
Chest AP portable at 1539: Reason for examination: Syncope. Comparison is made to previous study dated 09/02/2018. The heart size is enlarged but stable. Mediastinum is unchanged. Lung bolton are clear. No acute bony abnormalities are seen. Impression: Stable cardiomegaly. No acute cardiopulmonary disease. Electronically signed by: Melodie Marte MD (11/06/2019 4:01 PM) [id number]
--- NOTE | 2019-11-06 16:05 | PHYS DOC ---
Past Medical History Past Medical History: Asthma, Hypertension, Renal Failure, Other Additional Past Medical Histor: Focal glomerulosclerosis, kidney failure 2007 Past Surgical History: Other Additional Past Surgical Histo: "tube in neck"-removed,dialysis shunt right arm,lft kidney transplant 2009 Smoking Status: Never Smoker Alcohol Use: None Drug Use: None General Adult EDM: Chief Complaint: SYNCOPE HPI: HPI: Patient is a 43 year old male with history of hypertension, asthma, end-stage kidney disease on dialysis Monday last dialyzed prior to coming to the ED who presents today after having a syncope episode. Patient reports finishing his dialysis run, he went to the bathroom to have a bowel movement and passed out, he was also noted to have a bleeding fistula, the bleeding was stopped. Patient is complaining of lightheadedness. Review of Systems: Review of Systems: Constitutional: Denies fever or chills. [] Eyes: Denies change in visual acuity. [] HENT: Denies nasal congestion or sore throat. [] Respiratory: Denies cough or shortness of breath. [] Cardiovascular: Denies chest pain or edema. [] GI: Denies abdominal pain, nausea, vomiting, bloody stools or diarrhea. [] : Denies dysuria. [] Musculoskeletal: Denies back pain or joint pain. [] Integument: Denies rash. [] Neurologic: Reports syncope and dizziness. Denies headache, focal weakness or sensory changes. [] Endocrine: Dialysis patient Psychiatric: Denies depression or anxiety. [] Heart Score: Risk Factors: Risk Factors: DM, Current or recent (<one month) smoker, HTN, HLP, family history of CAD, obesity. Risk Scores: Score 0 - 3: 2.5% MACE over next 6 weeks - Discharge Home Score 4 - 6: 20.3% MACE over next 6 weeks - Admit for Clinical Observation Score 7 - 10: 72.7% MACE over next 6 weeks - Early Invasive Strategies Current Medications: Current Medications Medications (Trade) Dose Ordered Sig/Olivia Start Time Stop Time Status Last Admin Dose Admin Sodium Chloride 500 ml @ 500 mls/hr 1X ONCE 11/06/19 15:15 11/06/19 16:14 11/06/19 15:40 500 MLS/HR Allergies: Allergies: Allergies Coded Allergies Type Severity Reaction Last Updated Verified No Known Drug Allergies 05/08/17 No Physical Exam: PE: Constitutional: Tired appearing patient. Well developed, well nourished, no acute distress, non-toxic appearance. [] HENT: Normocephalic, atraumatic, bilateral external ears normal, oropharynx moist, no oral exudates, nose normal. [] Eyes: PERRLA, EOMI, conjunctiva normal, no discharge. [] Neck: Normal range of motion, no tenderness, supple, no stridor. [] Cardiovascular:Heart rate regular rhythm, no murmur [] Lungs & Thorax: Bilateral breath sounds clear to auscultation [] Abdomen: Bowel sounds normal, soft, no tenderness, no masses, no pulsatile masses. [] Skin: Warm, dry, no erythema, no rash. Right upper extremity with a dialysis fistula with tubing. Bleeding is controlled Back: No tenderness, no CVA tenderness. [] Extremities: No tenderness, no cyanosis, no clubbing, ROM intact, no edema. [] Neurologic: Alert and oriented X 3, normal motor function, normal sensory function, no focal deficits noted. Cranial nerves II through XII intact Psychologic: Affect normal, judgement normal, mood normal. [] Current Patient Data: Labs: Laboratory Tests Test 11/06/19 15:20 White Blood Count 4.2 x10^3/uL (4.0-11.0) Red Blood Count 4.07 x10^6/uL (4.30-5.70) L Hemoglobin 12.8 g/dL (13.0-17.5) L Hematocrit 38.3 % (39.0-53.0) L Mean Corpuscular Volume 94 fL (79-100) Mean Corpuscular Hemoglobin 32 pg (25-35) Mean Corpuscular Hemoglobin Concent 33 g/dL (31-37) Red Cell Distribution Width 14.6 % (11.5-14.5) H Platelet Count 155 x10^3/uL (140-400) Neutrophils (%) (Auto) 41 % (31-73) Lymphocytes (%) (Auto) 37 % (24-48) Monocytes (%) (Auto) 9 % (0-9) Eosinophils (%) (Auto) 13 % (0-3) H Basophils (%) (Auto) 1 % (0-3) Neutrophils # (Auto) 1.7 x10^3/uL (1.8-7.7) L Lymphocytes # (Auto) 1.6 x10^3/uL (1.0-4.8) Monocytes # (Auto) 0.4 x10^3/uL (0.0-1.1) Eosinophils # (Auto) 0.5 x10^3/uL (0.0-0.7) Basophils # (Auto) 0.0 x10^3/uL (0.0-0.2) Laboratory Tests 11/06/19 15:20 Vital Signs: Vital Signs Date Time Temp Pulse Resp B/P (MAP) Pulse Ox O2 Delivery O2 Flow Rate FiO2 11/06/19 15:06 98.2 61 10 119/76 (90) 97 Room Air 98.2 EKG: EK interpreted by Dr. Nieves sinus rhythm HR 62 no STEMI[] Radiology/Procedures: Radiology/Procedures: []PROCEDURE: CT HEAD WO CONTRAST CT HEAD WO CONTRAST History: Syncope Comparison: None. Technique: Noncontrast CT imaging was performed of the head. Exposure: One or more of the following individualized dose reduction techniques were utilized for this examination: 1. Automated exposure control 2. Adjustment of the mA and/or kV according to patient size 3. Use of iterative reconstruction technique. Findings: No acute extra-axial or parenchymal hemorrhage is identified. There is no significant intra-axial mass effect, midline shift, or extra-axial fluid collection. The mendes-white differentiation of the major vascular territories is preserved. The ventricles, sulci, and cisterns are within normal limits in size and configuration. The mastoid air cells and the visualized paranasal sinuses are aerated. No acute calvarial abnormality is identified. Impression: 1. No acute intracranial abnormality is identified. Electronically signed by: Andres Williamson MD (11/06/2019 4:29 PM) [facility] DICTATED and SIGNED BY: ANDRES WILLIAMSON MD DATE: 11/06/19 1629 Course & Med Decision Making: Course & Med Decision Making Pertinent Labs and Imaging studies reviewed. (See chart for details) This is a 43-year-old male patient who presents to the ED today to be evaluated after having a syncope episode. Patient completed his dialysis run, went to the bathroom and passed out. Was also noted to have a bleeding dialysis fistula, bleeding was stopped prior to coming to the ED Vitals on arrival BP 119/76, HR [address] of the head, labs, EKG and chest x-ray are negative for any acute findings. Patient was given 500 mL of normal saline, he reports he is feeling better and desires to go home. He prefers not to be admitted due to high COVID19 patients in the hospital. He was provided return precautions and discharged in stable condition. Dragon Disclaimer: Dragon Disclaimer: This electronic medical record was generated, in whole or in part, using a voice recognition dictation system. Departure Departure Impression: Primary Impression: Syncope Qualified Codes: R55 - Syncope and collapse Additional Impression: ESRD (end stage renal disease) on dialysis Disposition: HOME, SELF-CARE Condition: STABLE Referrals: CLEM LUNA MD (PCP) follow up in 1-7 days Patient Instructions: Syncope, [id number] Additional Instructions: Please follow up with your primary care doctor in the course of this week. Please return to the Ed if symptoms re-occur. AUBREE DE ANDA TRANSPORTER DRIVER Nov 06, 2019 16:05
[2019-11-06 16:07] LABS: ALBUMIN 3.8 g/dL (3.4-5.0); ALBUMIN/GLOBULIN RATIO 0.8 (1.0-1.7); MAGNESIUM 1.9 mg/dL (1.8-2.4); TOTAL BILIRUBIN 0.5 mg/dL (0.2-1.0); TOTAL PROTEIN 8.5 g/dL (6.4-8.2)
--- NOTE | 2019-11-06 16:33 | RAD ---
CT HEAD WO CONTRAST History: Syncope Comparison: None. Technique: Noncontrast CT imaging was performed of the head. Exposure: One or more of the following individualized dose reduction techniques were utilized for this examination: 1. Automated exposure control 2. Adjustment of the mA and/or kV according to patient size 3. Use of iterative reconstruction technique. Findings: No acute extra-axial or parenchymal hemorrhage is identified. There is no significant intra-axial mass effect, midline shift, or extra-axial fluid collection. The mendes-white differentiation of the major vascular territories is preserved. The ventricles, sulci, and cisterns are within normal limits in size and configuration. The mastoid air cells and the visualized paranasal sinuses are aerated. No acute calvarial abnormality is identified. Impression: 1. No acute intracranial abnormality is identified. Electronically signed by: Adriano Carlson MD (11/06/2019 4:29 PM) [facility]
[2019-11-06 17:35] VITALS: BP 140/84
== END 2019-11-06 17:36 | disposition home or self-care (01) ==
LOC: ER 15:06
DX: R55 Syncope and collapse (principal); N18.6 End stage renal disease; J45.909 Unspecified asthma, uncomplicated; I10 Essential (primary) hypertension; Z98.890 Other specified postprocedural states
CPT/HCPCS: 36415; 70450; 71045; 80053; 82553; 83735; 83880; 84443; 84484; 85025; 93005; 99285; J7040

== ENCOUNTER → 2019-12-27 | Outpatient (CLI) | payer OTHER ==
[~2019-12-27] MED LIST changes: +HYDR-3164 PO
== END | disposition home or self-care (01) ==
LOC: LAB 08:55
PROVIDERS: ATTEND Surgery
DX: Z01.818 Encounter for other preprocedural examination (principal); Z11.59 Encounter for screening for other viral diseases; N18.6 End stage renal disease; Z99.2 Dependence on renal dialysis
CPT/HCPCS: C9803; U0003; 36415

== ENCOUNTER 2020-01-02 07:41 | Day surgery (SDC) | payer OTHER ==
[~2020-01-02] VITALS: Ht 165.1 cm; Wt 56.7 kg
[~2020-01-02 07:41] MED LIST changes: +HEPARIN SODIUM 5,000 UNIT in IV NORMAL SALINE 500ML BAG 500 ML IRR ONE; -HYDR-3164 PO; +HYDROmorphone 2 MG/ML VIAL IV PRN; +IV NORMAL SALINE 1000ML BAG 1,000 ML IV SCH; +LIDOCAINE 1% Multi-Dose 20 ML VIAL. ONE; +MORPHINE SULFATE 2 MG/ML VIAL. IV PRN; +ONDANSETRON PF 4 MG/2 ML VIAL. IV PRN; +PAPAVERINE 60 MG/2 ML VIAL. ONE; +PROCHLORPERAZINE 10 MG/2 ML VIAL. IV PRN; +SURGICEL HEMOSTAT 4X8 EACH. ONE; +fentaNYL PF VIAL 100 MCG/2 ML VIAL IV PRN
--- NOTE | 2020-01-02 08:15 | PDOC1 ---
History and Physical Date of Admission Date of Admission DATE: 01/02/20 TIME: 08:10 History of Present Illness History of Present Illness Presents for AV fistula revision with venous aneurysm resection. Please reference H&P from 09/25/2019. He has had no changes in health history since last seen. Past Medical History Cardiovascular: HTN Pulmonary: No pertinent hx GI: No pertinent hx Heme/Onc: No pertinent hx Hepatobiliary: No pertinent hx Psych: No pertinent hx Renal/: Chronic renal insuff, Acute renal failure, Chronic renal failure Endocrine: Hyperparathyroidism Past Surgical History Past Surgical History: Other (Right arm AV fistula creation) Family History Family History: Hypertension, Other Social History Smoke: No ALCOHOL: none Drugs: None Current Medications Current Medications Current Medications Heparin Sodium (Porcine) 5000 unit/Sodium Chloride 505 ml @ 505 mls/hr 1X ONCE IRR ; Start 01/02/20 at 06:00; Stop 01/02/20 at 06:59; Status DC Cefazolin Sodium 1 gm/Sodium Chloride 500 ml @ 500 mls/hr 1X ONCE IRR ; Start 01/02/20 at 06:00; Stop 01/02/20 at 06:59; Status DC Ondansetron HCl (Zofran) 4 mg PRN Q6HRS PRN IV NAUSEA/VOMITING; Start 01/02/20 at 07:00; Stop 01/03/20 at 06:59 Fentanyl Citrate (Fentanyl 2ml Vial) 25 mcg PRN Q5MIN PRN IV MILD PAIN 1-3; Start 01/02/20 at 07:00; Stop 01/03/20 at 06:59 Fentanyl Citrate (Fentanyl 2ml Vial) 50 mcg PRN Q5MIN PRN IV MODERATE TO SEVERE PAIN; Start 01/02/20 at 07:00; Stop 01/03/20 at 06:59 Morphine Sulfate (Morphine Sulfate) 1 mg PRN Q10MIN PRN IV SEVERE PAIN 7-10; Start 01/02/20 at 07:00; Stop 01/03/20 at 06:59 Hydromorphone HCl (Dilaudid) 0.5 mg PRN Q10MIN PRN IV SEV PAIN, Second choice; Start 01/02/20 at 07:00; Stop 01/03/20 at 06:59 Prochlorperazine Edisylate (Compazine) 5 mg PACU PRN PRN IV NAUSEA, MRX1; Start 01/02/20 at 07:00; Stop 01/03/20 at 06:59 Sodium Chloride 1,000 ml @ 0 mls/hr Q0M IV ; Start 01/02/20 at 07:00 Cefazolin Sodium/ Dextrose 50 ml @ 100 mls/hr 1X PREOP PRN IV PRIOR TO PROCEDURE; Start 01/02/20 at 06:00; Stop 01/02/20 at 18:00 Lidocaine HCl (Lidocaine 1% 20ml Vial) 20 ml STK-MED ONCE .ROUTE ; Start 01/02/20 at 07:33; Stop 01/02/20 at 07:33; Status DC Cellulose (Surgicel Hemostat 4x8) 1 each STK-MED ONCE .ROUTE ; Start 01/02/20 at 07:33; Stop 01/02/20 at 07:34; Status DC Papaverine HCl 60 mg STK-MED ONCE .ROUTE ; Start 01/02/20 at 07:34; Stop 01/02/20 at 07:34; Status DC Active Scripts Active [Pantoprazole] 40 MG Tablet.dr 40 Mg PO DAILYAC 30 Days Reported Carvedilol 25 Mg Tablet 1 Tab PO BID Amlodipine Besylate 5 Mg Tablet 5 Mg PO DAILY Calcium Acetate 667 Mg Tablet 667 Mg PO TIDWMEALS Allergies Allergies: Coded Allergies: enalapril (Verified Allergy, Severe, Swelling, 01/01/20) angioedema Physical Exam General: Alert, Oriented X3, Cooperative HEENT: Atraumatic, PERRLA Lungs: Clear to auscultation, Normal air movement Heart: S1S2, RRR, no thrills, no rubs Cardiovascular: S1, S2 Breasts: Not examined Abdomen: Normal bowel sounds, Soft, No tenderness Rectal Exam: not examined Extremities: No clubbing, No cyanosis, No edema, Normal pulses Skin: No rashes, No breakdown Neuro: Normal gait, Normal speech, Strength at 5/5 X4 ext, Normal tone, Sensation intact, Cranial nerves 3-12 NL Psych/Mental Status: Mental status NL, Mood NL VTE Prophylaxis Ordered VTE Prophylaxis Devices: No VTE Pharmacological Prophylaxi: Yes Assessment/Plan Assessment/Plan ESRD on HD--Will proceed with AV fistula revison today with aneurysm resection. Patient agreeable to proceed and understands risks and benefits. Lasha Mayo, DO, FACS, RPVI Justicifation of Admission Dx: Justifications for Admission: Justification of Admission Dx: N/A LASHA MAYO DO Jan 02, 2020 08:15
[2020-01-02] MEDS ORDERED: PROPOFOL 10 MG/ML (20ML) VIAL. IV ONE (08:20)
[2020-01-02] MEDS ORDERED: fentaNYL PF VIAL 100 MCG/2 ML VIAL ONE (08:20)
[2020-01-02] MEDS ORDERED: LIDOCAINE 2% PF 5 ML VIAL. ONE (08:20)
[2020-01-02] MEDS ORDERED: IV NORMAL SALINE 1000ML BAG 1,000 ML IV ONE (08:45)
[2020-01-02 08:51] LABS: BASO % 1 % (0-3); EOS # 0.6 x10^3/uL (0.0-0.7); EOS % 11 % (0-3); HEMATOCRIT 37.1 % (39.0-53.0); HEMOGLOBIN 12.5 g/dL (13.0-17.5); LYMPH % 36 % (24-48); MEAN CORPUSCULAR HEMOGLOBIN 31 pg (25-35); MEAN CORPUSCULAR HGB CONC 34 g/dL (31-37); MEAN CORPUSCULAR VOLUME 91 fL (79-100); MONO # 0.6 x10^3/uL (0.0-1.1); MONO % 12 % (0-9); NEUT # 2.2 x10^3/uL (1.8-7.7); NEUT % 40 % (31-73); PLATELET COUNT 147 x10^3/uL (140-400); RED BLOOD COUNT 4.06 x10^6/uL (4.30-5.70); RED CELL DISTRIBUTION WIDTH 14.2 % (11.5-14.5); WHITE BLOOD COUNT 5.5 x10^3/uL (4.0-11.0)
[2020-01-02 08:59] LABS: POTASSIUM 3.5 mmol/L (3.5-5.1)
[2020-01-02] MEDS ORDERED: DEXAMETHASONE SOD PHOS 4 MG/ML VIAL ONE (09:25)
[2020-01-02] MEDS ORDERED: FAMOTIDINE 20 MG/2 ML VIAL ONE (09:25)
[2020-01-02] MEDS ORDERED: ONDANSETRON PF 4 MG/2 ML VIAL. ONE (09:26)
[2020-01-02] MEDS ORDERED: ePHEDrine PF IN SALINE 50 MG/10 ML SYRINGE. IV ONE (09:30)
[2020-01-02] MEDS ORDERED: SEVOFLURANE 61 TO 120 MINUTES. IH ONE (09:31)
[2020-01-02] MEDS ORDERED: HEPARIN for IV BOLUS 10,000 UNIT/10 ML VIAL. ONE (09:59)
[2020-01-02] MEDS ORDERED: ceFAZolin 2GM PREMIX 2 GM/50 ML BAG IV ONE (10:00)
[2020-01-02] MEDS ORDERED: PROTAMINE 50 MG/5 ML VIAL. IV ONE (11:00)
[2020-01-02] MEDS ORDERED: SURGICEL FIBRILLAR 1X2 EACH. ONE (11:00)
[2020-01-02] MEDS ORDERED: SURGICEL FIBRILLAR 1X2 EACH. TP ONE (11:01)
[2020-01-02] MEDS ORDERED: LIDOCAINE 1%/EPI 1:100,000 20 ML VIAL. ONE (11:32)
--- NOTE | 2020-01-02 11:42 | PDOC ---
BRIEF OPERATIVE NOTE Date: Jan 02, 2020 Pre-Op Diagnosis End-stage renal disease on hemodialysis Post-Op Diagnosis Same Procedure Performed Right upper extremity AV fistula revision with interposition 7 mm [place]-Alvino graft Surgeon Lasha Mayo DO, FACS Anesthesia Type: General Blood Loss 20 mL Specimens Obtained None Complications None Operative Note Full operative note dictated LASHA MAYO DO Jan 02, 2020 11:42
[2020-01-02] MEDS ORDERED: HYDR-3164 PO (11:55)
--- NOTE | 2020-01-02 11:57 | OP ---
DATE OF SURGERY: 01/02/2020 VASCULAR SURGERY OPERATIVE NOTE ATTENDING SURGEON: Hakan Mayo DO PREOPERATIVE DIAGNOSIS: End-stage renal disease, on hemodialysis. POSTOPERATIVE DIAGNOSIS: End-stage renal disease, on hemodialysis. PROCEDURE: Right upper extremity AV fistula revision with interposition bypass graft using a 7 mm Propaten PTFE [place]-Alvino graft. ANESTHESIA: General. SPECIMENS: None. ESTIMATED BLOOD LOSS: 20 mL. COMPLICATIONS: None. PREOPERATIVE INDICATIONS: The patient is a very pleasant 44-year-old male who developed a large venous aneurysms throughout his brachiocephalic AV fistula. The patient has had bleeding from his venous aneurysms and these continued to enlarge likely due to repetitive access in the same locations. The patient was consented for revision of his fistula with possible bypass graft and he understood all risks, benefits, and alternatives of the procedure prior to proceeding. OPERATIVE PROCEDURE: The patient was brought to the operating suite and placed in supine position. After establishing appropriate anesthesia, the patient's right upper extremity was prepped and draped in sterile fashion. Next, a timeout procedure was performed. It was confirmed that the patient did receive appropriate perioperative antibiotics and I did also do a pre-scrub with chlorhexidine prior to the operative chlorhexidine scrub. At this point in time, an incision was made at the proximal inflow and carried through the skin and subcutaneous tissue. Dissection was carried down until I was able to circumferentially dissect the proximal portion of the fistula and gained vessel loop control. Following this, an incision was made overlying the venous outflow of the fistula beyond the two venous aneurysms. Our incision was carried through the skin and subcutaneous tissue and then dissection was carried down to the fistula where this was circumferentially dissected and controlled with vessel loop. Next, a Erika-Wick tunneler was used to tunnel from the proximal to the distal incision and then the surgical team all donned new gloves. Following this, a 7 mm Propaten graft was brought to the field and this was tunneled between the 2 incisions using a Erika-Wick tunneler. Following this, the patient was heparinized per weight-based protocol. Next, our proximal inflow portion of the fistula was clamped both proximally and distally and then the fistula was transected. Following this, our graft was trimmed and then an end-to-end anastomosis was sewn in place using HS-7 suture in a running fashion. Next, all redundancy was removed from the graft and then our venous outflow portion of the fistula was controlled proximally and distally. Following this, the fistula was transected completely. Next, all the blood was removed from the venous aneurysms, but I suspect there are some collaterals within the venous aneurysms connecting to the venous system as these continued to fill with venous blood. Following this, the proximal portion of the venous tract was oversewn using 5-0 Prolene suture in a running fashion. Next, the graft was appropriately trimmed and then an end-to-end anastomosis was sewn in place from the graft to the venous outflow tract. This was performed using HS-7 suture in a running fashion. Prior to completing anastomosis, I did backbleed and flush the vessels appropriately and then the anastomosis was completed and flow was restored. The patient had immediate return of a thrill through the fistula and through the venous outflow tract. We had good hemostasis at the proximal and distal anastomosis. Next, the proximal end of the blind segment of the venous outflow was identified and then oversewn using a 5-0 Prolene suture on the proximal end. Next, both incisions were copiously irrigated with antibiotic-impregnated solution. Fibrillar was also used for raw surface bleeding as well as Bovie electrocautery. The patient was also administered protamine. After we were satisfied with the hemostasis and the lap, sponge, needle and instrument count was found to be correct and the subcutaneous tissue was closed using running 3-0 Vicryl suture followed by Dermabond for the skin. A sterile dressing was placed including a compressive wrap. The patient tolerated the procedure well and was transferred to the postanesthesia care unit in stable condition. I did ask Dr. Fu with Interventional Radiology to join the room and perform a tunneled dialysis catheter due to the fact that I did more dissection and revision of his arm than I anticipated. Dr. Fu did talk to the patient's family and consented them for a tunneled dialysis catheter and then his portion of the procedure will be dictated separately. HAKAN MAYO DO DR: BENJAMIN/radha JOB#: [id number] / [id number]
[2020-01-02] MEDS ORDERED: LIDOCAINE 1%/EPI 1:100,000 20 ML VIAL. INJ ONE (12:00)
[2020-01-02] MEDS ORDERED: HYDROcodone/APAP 5/325MG 1 TAB TABLET PO ONE (12:00)
[2020-01-02] MEDS ORDERED: PROCHLORPERAZINE 10 MG/2 ML VIAL. ONE (12:38)
[2020-01-02] MEDS ORDERED: SCOPOLAMINE 1.5MG PATCH. TD ONE ×2 (12:43→13:15)
[2020-01-02 14:17] VITALS: BP 134/70
--- NOTE | 2020-01-02 16:26 | RAD ---
Procedure: Tunneled hemodialysis catheter placement 01/02/2020 2:21 PM Clinical Indication: NEED FOR DIALYSIS UNSUCCESSFUL CATHETER PLACEMENT Sterility: All elements of maximal sterile barrier technique including the use of a cap, mask, sterile gown, sterile gloves, large sterile sheet, appropriate hand hygiene, and 2% chlorhexidine for cutaneous antisepsis (or acceptable alternative antiseptic per current guidelines) were followed for this procedure. Consent: The procedure was explained in its entirety to the patient or the patients designated sales representative printing supplies by a member of the treatment team, including a discussion of the risks, benefits and commonly accepted alternatives to the procedure, as well as the expected consequences of no therapy whatsoever. Discussion of the risks included, but was not limited to, those that are most frequent and those that are rare but possibly severe or life-threatening, as well as the possibility of unforeseen complications. Technique and Findings: Following informed consent, a timeout procedure was performed. The patient was prepped and draped in the usual sterile fashion. Ultrasound interrogation of the right neck revealed patency and compressibility of the right internal jugular vein. A 21-gauge micropuncture was then used to gain access to this vein under ultrasound guidance. A hard copy ultrasound image was recorded. The needle was exchanged over a wire for a 4 [place] sheath which was used to guide an guidewire into the IVC. The skin over the right anterior chest wall was copiously anesthetized with 1% Lidocaine and a small dermatotomy was made. A 19 cm tipped cuff palindrome tunneled hemodialysis catheter was then tunneled subcutaneously towards the neck dermatotomy and deployed through a large caliber peel-away sheath under fluoroscopic guidance such that the distal tip resided in the mid right atrium. Manual flow rates were assessed and found to be within normal limits. The catheter was then flushed, packed with Heparin, capped, and sutured to the skin. The neck dermatotomy was closed with Dermabond. No immediate complications were identified. Fluoroscopy time: 38 seconds Dose area product: 1.3712 mendes centimeter squared Impression: Tunneled hemodialysis catheter placement as described
== END 2020-01-02 15:05 | disposition home or self-care (01) ==
LOC: SURG 07:41
PROVIDERS: ATTEND Surgery
DX: I12.0 Hypertensive chronic kidney disease with stage 5 chronic kidney disease or end stage renal disease (principal); N18.6 End stage renal disease; K21.0 Gastro-esophageal reflux disease with esophagitis; E21.2 Other hyperparathyroidism; Z79.899 Other long term (current) drug therapy; Z99.2 Dependence on renal dialysis; Z88.8 Allergy status to other drugs, medicaments and biological substances
CPT/HCPCS: 36415; 36561; 36832; 76937; 80048; 85025; A7015; C1750; C1768; C1769; C1892; J0690; J0696; J0780; J1100; J1644; J2405; J2704; J2720; J3010; J3490; J7040; 36558; 76000; J2440

== ENCOUNTER 2020-03-06 11:49 | Inpatient (IN) | payer OTHER ==
[~2020-03-06] VITALS: Ht 165.1 cm; Wt 57.6 kg
[~2020-03-06 11:49] MED LIST changes: -HEPARIN SODIUM 5,000 UNIT in IV NORMAL SALINE 500ML BAG 500 ML IRR ONE; +HYDR-3164 PO; -HYDROmorphone 2 MG/ML VIAL IV PRN; -IV NORMAL SALINE 1000ML BAG 1,000 ML IV SCH; -LIDOCAINE 1% Multi-Dose 20 ML VIAL. ONE; -MORPHINE SULFATE 2 MG/ML VIAL. IV PRN; -ONDANSETRON PF 4 MG/2 ML VIAL. IV PRN; -PAPAVERINE 60 MG/2 ML VIAL. ONE; -PROCHLORPERAZINE 10 MG/2 ML VIAL. IV PRN; -SURGICEL HEMOSTAT 4X8 EACH. ONE; -fentaNYL PF VIAL 100 MCG/2 ML VIAL IV PRN
--- NOTE | 2020-03-06 12:05 | PHYS DOC ---
Past Medical History Past Medical History: Asthma, Hypertension, Renal Failure, Other Additional Past Medical Histor: Focal glomerulosclerosis, kidney failure 2008 Past Surgical History: Other Additional Past Surgical Histo: "tube in neck"-removed,dialysis shunt right arm,lft kidney transplant 2009 Smoking Status: Never Smoker Alcohol Use: None Drug Use: None General Adult EDM: Chief Complaint: DIZZY/LIGHT HEADED HPI: HPI: Patient is a 44 year old male who presents with a chief complaint of lightheaded dizziness. Patient is a dialysis patient and had episode of lightheaded dizziness 2 days ago and fell and hit his head he had some associate d nausea and vomiting. Today he was feeling fine and went to dialysis before he was hooked up started having lightheaded dizziness again. Patient did not fall today. Patient still has lightheaded dizziness. Patient denies any current pain. No vomiting today. Patient has any fever cough or shortness of breath. Review of Systems: Review of Systems: Constitutional: Denies fever or chills. [] Eyes: Denies change in visual acuity. [] HENT: Denies nasal congestion or sore throat. [] Respiratory: Denies cough or shortness of breath. [] Cardiovascular: Denies chest pain or edema. [] GI: Denies abdominal pain, nausea, vomiting, bloody stools or diarrhea. [] : Denies dysuria. [] Musculoskeletal: Denies back pain or joint pain. [] Integument: Denies rash. [] Neurologic: Denies headache, focal weakness or sensory changes but has lightheaded dizziness Endocrine: Denies polyuria or polydipsia. [] Lymphatic: Denies swollen glands. [] Psychiatric: Denies depression or anxiety. [] Heart Score: Risk Factors: Risk Factors: DM, Current or recent (<one month) smoker, HTN, HLP, family history of CAD, obesity. Risk Scores: Score 0 - 3: 2.5% MACE over next 6 weeks - Discharge Home Score 4 - 6: 20.3% MACE over next 6 weeks - Admit for Clinical Observation Score 7 - 10: 72.7% MACE over next 6 weeks - Early Invasive Strategies Allergies: Allergies: Allergies Coded Allergies Type Severity Reaction Last Updated Verified enalapril Allergy Severe Swelling 01/02/20 Yes Physical Exam: PE: Constitutional: Well developed, well nourished, no acute distress, non-toxic appearance. [] HENT: Normocephalic, atraumatic, bilateral external ears normal, no trismus, nose normal. [] Eyes: PERRLA, EOMI, conjunctiva normal, no discharge. [] Neck: Normal range of motion, no tenderness, supple, no stridor. [] Cardiovascular:Heart rate regular rhythm, peripheral pulses intact, cap refill brisk Lungs & Thorax: Bilateral breath sounds clear, no respiratory distress Abdomen: Bowel sounds normal, soft, no tenderness, no masses, no pulsatile masses. [] Skin: Warm, dry, no erythema, no rash. [] Back: No tenderness, no CVA tenderness. [] Extremities: No tenderness, no cyanosis, no clubbing, ROM intact, no edema. [] Neurologic: Alert and oriented X 3, normal motor function, normal sensory function, no focal deficits noted. [] Psychologic: Affect normal, judgement normal, mood normal. [] Current Patient Data: Labs: Laboratory Tests Test 03/06/20 12:00 White Blood Count 5.9 x10^3/uL Red Blood Count 3.27 x10^6/uL Hemoglobin 10.5 g/dL Hematocrit 30.8 % Mean Corpuscular Volume 94 fL Mean Corpuscular Hemoglobin 32 pg Mean Corpuscular Hemoglobin Concent 34 g/dL Red Cell Distribution Width 14.1 % Platelet Count 130 x10^3/uL Neutrophils (%) (Auto) 51 % Lymphocytes (%) (Auto) 28 % Monocytes (%) (Auto) 10 % Eosinophils (%) (Auto) 11 % Basophils (%) (Auto) 0 % Neutrophils # (Auto) 3.0 x10^3/uL Lymphocytes # (Auto) 1.6 x10^3/uL Monocytes # (Auto) 0.6 x10^3/uL Eosinophils # (Auto) 0.6 x10^3/uL Basophils # (Auto) 0.0 x10^3/uL Sodium Level 139 mmol/L Potassium Level 4.4 mmol/L Chloride Level 98 mmol/L Carbon Dioxide Level 28 mmol/L Anion Gap 13 Blood Urea Nitrogen 49 mg/dL Creatinine 14.3 mg/dL Estimated GFR (Cockcroft-Gault) 4.6 BUN/Creatinine Ratio 3 Glucose Level 92 mg/dL Calcium Level 8.6 mg/dL Total Bilirubin 0.3 mg/dL Aspartate Amino Transf (AST/SGOT) 29 U/L Alanine Aminotransferase (ALT/SGPT) 14 U/L Alkaline Phosphatase 78 U/L Troponin I Quantitative 0.063 ng/mL Total Protein 8.1 g/dL Albumin 3.5 g/dL Albumin/Globulin Ratio 0.8 Current Medications Medications (Trade) Dose Ordered Sig/Olivia Route PRN Reason Start Time Stop Time Status Last Admin Dose Admin Ondansetron HCl (Zofran) 4 mg PRN Q8HRS PRN IV NAUSEA/VOMITING 03/06/20 13:30 03/07/20 13:29 Aspirin (Aspirin Chewable) 324 mg 1X ONCE PO 03/06/20 13:45 03/06/20 13:46 Vital Signs: Vital Signs Date Time Temp Pulse Resp B/P (MAP) Pulse Ox O2 Delivery O2 Flow Rate FiO2 03/06/20 12:04 98.0 58 18 164/89 (114) 97 Room Air 98.0 EKG: EKG: EKG interpreted by me sinus bradycardia normal axis prolonged QTC nonspecific ST changes rate of 58 [] Radiology/Procedures: Radiology/Procedures: [][facility] [address] [place] [address] IMAGING REPORT Signed PATIENT: ANICETO OSBORN ACCOUNT: [id number] : 1975 LOCATION: ER AGE: 44 SEX: M EXAM STATUS: PRE ER ORD. PHYSICIAN: LISA FORD MD REASON: Dizziness PROCEDURE: CT HEAD WO CONTRAST PQRS Compliance Statement: One or more of the following individualized dose reduction techniques were utilized for this examination: 1. Automated exposure control 2. Adjustment of the mA and/or kV according to patient size 3. Use of iterative reconstruction technique CT head without contrast 03/06/2020 12:02 PM INDICATION: Dizziness COMPARISON: CT head 11/06/2019 TECHNIQUE: Multiple axial CT images of the head were obtained from skull base through the vertex without intravenous contrast. FINDINGS: Head: Ventricles, sulci and basal cisterns are within normal limits. There is no hydrocephalus. Melgoza-white matter differentiation is normal. There is no acute intracranial hemorrhage. There is no mass, mass effect or midline shift. Posterior fossa is normal in appearance. Visualized portions of the orbits are normal. Paranasal sinuses are well aerated. Mastoid air cells are well aerated. Scalp and calvaria are normal. IMPRESSION: No acute intracranial hemorrhage. Electronically signed by: Beverly Callahan MD (03/06/2020 12:31 PM) [id number] DICTATED and SIGNED BY: BEVERLY CALLAHAN MD DATE: 03/06/20 1231 [facility] [address] [place] [address] IMAGING REPORT Signed PATIENT: ANICETO OSBORN ACCOUNT: [id number] : 1975 LOCATION: ER AGE: 44 SEX: M EXAM STATUS: REG ER ORD. PHYSICIAN: LISA FORD MD REASON: DIZZY, SHORT OF BREATH PROCEDURE: PORTABLE CHEST 1V EXAM: Chest, single view. HISTORY: Dizzy. Short of breath. COMPARISON: 11/06/2019 FINDINGS: A frontal view of the chest is obtained. There is no infiltrate, pleural effusion or pneumothorax. There is stable enlargement of the cardiac silhouette. There is linear atelectasis within the left mid thorax. IMPRESSION: Stable enlargement of the cardiac silhouette. Electronically signed by: Annie Ruiz MD (03/06/2020 12:56 PM) [facility] DICTATED and SIGNED BY: ANNIE RUIZ MD DATE: 03/06/20 1256 Course & Med Decision Making: Course & Med Decision Making Pertinent Labs and Imaging studies reviewed. (See chart for details) [] 44-year-old male presents with lightheaded dizziness paralysis. Work-up was unremarkable. Symptoms have been going off and on for several days. Patient has no lateralizing deficits therefore he will not get TPA. Patient will be a dmitted to Dr. Fragoso for further observation and treatment. Nephrology consult has been placed Huey Disclaimer: Huey Disclaimer: This electronic medical record was generated, in whole or in part, using a voice recognition dictation system. Departure Departure Impression: Primary Impression: Dizziness Additional Impression: ESRD (end stage renal disease) on dialysis Disposition: ADMITTED INPATIENT Admitting Physician: CORBY YANES) Condition: STABLE Referrals: CLEM LUNA MD (PCP) Justicifation of Admission Dx: Justifications for Admission: Justification of Admission Dx: Yes LISA FORD MD Mar 06, 2020 12:05
[2020-03-06 12:07] LABS: BASO % 0 % (0-3); EOS # 0.6 x10^3/uL (0.0-0.7); EOS % 11 % (0-3); HEMATOCRIT 30.8 % (39.0-53.0); HEMOGLOBIN 10.5 g/dL (13.0-17.5); LYMPH # 1.6 x10^3/uL (1.0-4.8); LYMPH % 28 % (24-48); MEAN CORPUSCULAR HEMOGLOBIN 32 pg (25-35); MEAN CORPUSCULAR HGB CONC 34 g/dL (31-37); MEAN CORPUSCULAR VOLUME 94 fL (79-100); MONO # 0.6 x10^3/uL (0.0-1.1); MONO % 10 % (0-9); NEUT % 51 % (31-73); PLATELET COUNT 130 x10^3/uL (140-400); RED BLOOD COUNT 3.27 x10^6/uL (4.30-5.70); RED CELL DISTRIBUTION WIDTH 14.1 % (11.5-14.5); WHITE BLOOD COUNT 5.9 x10^3/uL (4.0-11.0)
--- NOTE | 2020-03-06 12:33 | RAD ---
PQRS Compliance Statement: One or more of the following individualized dose reduction techniques were utilized for this examination: 1. Automated exposure control 2. Adjustment of the mA and/or kV according to patient size 3. Use of iterative reconstruction technique CT head without contrast 03/06/2020 12:02 PM INDICATION: Dizziness COMPARISON: CT head 11/06/2019 TECHNIQUE: Multiple axial CT images of the head were obtained from skull base through the vertex without intravenous contrast. FINDINGS: Head: Ventricles, sulci and basal cisterns are within normal limits. There is no hydrocephalus. Melgoza-white matter differentiation is normal. There is no acute intracranial hemorrhage. There is no mass, mass effect or midline shift. Posterior fossa is normal in appearance. Visualized portions of the orbits are normal. Paranasal sinuses are well aerated. Mastoid air cells are well aerated. Scalp and calvaria are normal. IMPRESSION: No acute intracranial hemorrhage. Electronically signed by: Alicia Mendoza MD (03/06/2020 12:31 PM) [id number]
[2020-03-06 12:35] LABS: CALCIUM 8.6 mg/dL (8.5-10.1); CREATININE 14.3 mg/dL (0.7-1.3); GFR 4.6; POTASSIUM 4.4 mmol/L (3.5-5.1)
[2020-03-06 12:41] LABS: ALBUMIN 3.5 g/dL (3.4-5.0); ALBUMIN/GLOBULIN RATIO 0.8 (1.0-1.7); TOTAL BILIRUBIN 0.3 mg/dL (0.2-1.0); TOTAL PROTEIN 8.1 g/dL (6.4-8.2)
--- NOTE | 2020-03-06 12:59 | RAD ---
EXAM: Chest, single view. HISTORY: Dizzy. Short of breath. COMPARISON: 11/06/2019 FINDINGS: A frontal view of the chest is obtained. There is no infiltrate, pleural effusion or pneumothorax. There is stable enlargement of the cardiac silhouette. There is linear atelectasis within the left mid thorax. IMPRESSION: Stable enlargement of the cardiac silhouette. Electronically signed by: Annie Morales MD (03/06/2020 12:56 PM) [facility]
--- NOTE | 2020-03-06 13:41 | EKG ---
[facility] [address] [place] [address] Test Date: 2020-03-06 Test Time: 12:27:54 Pat Name: ANICETO OSBORN Department: Room: Gender: M Chaplaincy: : 1975 Requested By: LISA FORD Order Number: [id number] Reading MD: Measurements Intervals [place] Rate: 58 P: 48 ND: 170 QRS: 21 QRSD: 98 T: 187 QT: 490 QTc: 485 Interpretive Statements SINUS RHYTHM LEFT ATRIAL ABNORMALITY AMPLITUDE CRITERIA FOR LVH T ABNORMALITY IN LATERAL LEADS INFEROLATERAL LEADS PROLONGED QT ABNORMAL ECG RI6.02 No previous ECG available for comparison
[2020-03-06] MEDS: ONDANSETRON PF 4 MG/2 ML VIAL. IV PRN ×2 (13:44→14:12)
[2020-03-06] MEDS ORDERED: ASPIRIN CHEWABLE 81 MG TABLET. PO ONE (13:45)
[2020-03-06] MEDS ORDERED: HYDROcodone/APAP 5/325MG 1 TAB TABLET PO PRN (15:15)
[2020-03-06] MEDS ORDERED: guaiFENesin ORAL 200 MG/10 ML LIQUID. PO PRN (15:15)
[2020-03-06] MEDS ORDERED: DOCUSATE SODIUM 100 MG CAPSULE. PO PRN (15:15)
[2020-03-06] MEDS ORDERED: LORazepam 0.5 MG TABLET PO PRN (15:15)
[2020-03-06] MEDS ORDERED: ONDANSETRON PF 4 MG/2 ML VIAL. IV PRN (15:15)
[2020-03-06] MEDS ORDERED: cloNIDine HCL 0.1 MG TABLET PO PRN (15:15)
[2020-03-06] MEDS ORDERED: MAG HYDROX/ALUMINUM HYD/SIMETH 30 ML ORAL.SUSP PO PRN (15:15)
[2020-03-06] MEDS ORDERED: ALBUTEROL SULFATE 2.5 MG/3 ML NEBU. NEB PRN (15:15)
[2020-03-06] MEDS ORDERED: ACETAMINOPHEN 325 MG TABLET. PO PRN (15:15)
--- NOTE | 2020-03-06 15:17 | PDOC1 ---
History and Physical Date of Admission Date of Admission 03/06/2020 Identification/Chief Complaint Chief Complaint I feel lightheaded Source Source: Chart review, Patient History of Present Illness History of Present Illness Patient is a 45-year-old gentleman with focal glomerulosclerosis with kidney failure in 2007 who underwent a transplant but unfortunately this also failed and rejected it. Patient also has past medical history of asthma hypertension and was in his usual state of health until approximately 2 days prior to his admission. Apparently the patient had an episode of lightheadedness at seems to have been more orthostasis but also could have been vasovagal response. Patient had a fall from own height no evident trauma is noted on the patient at the time of my evaluation. Of note is that he is a poor historian and is not willing to provide much from any details regarding his current condition. He says that he feels weak no headache no blurred vision no slurred speech no focal neurological deficits were reported. No dysphagia odynophagia no chest pain palpitations or shortness of breath was reported by the patient no nausea vomiting diarrhea no abdominal pain no hematochezia has been reported. We have been asked to admit the patient for further evaluation and treatment. Of note is that the patient has a mildly elevated troponin which could be secondary to his underlying kidney disorder. Patient is in no acute distress at the time of my visit and the plan of care has been explained in detail with no concerns at the time of my note. Past Medical History Cardiovascular: HTN Pulmonary: No pertinent hx GI: No pertinent hx Heme/Onc: No pertinent hx Hepatobiliary: No pertinent hx Psych: No pertinent hx Renal/: Chronic renal insuff, Acute renal failure, Chronic renal failure Endocrine: Hyperparathyroidism Past Surgical History Past Surgical History: Other, No pertinent history Family History Family History: Hypertension, Other Social History Smoke: No ALCOHOL: none Drugs: None Current Problem List Problem List Problems Medical Problems: (1) Dizziness Status: Acute Current Medications Current Medications Current Medications Medications (Trade) Dose Ordered Sig/Olivia Start Time Stop Time Status Last Admin Dose Admin Aspirin (Aspirin Chewable) 324 mg 1X ONCE 03/06/20 13:45 03/06/20 13:55 DC 03/06/20 13:45 324 MG Ondansetron HCl (Zofran) 4 mg PRN Q8HRS PRN 03/06/20 13:30 03/07/20 13:29 03/06/20 13:44 4 MG Allergies Allergies Allergies Coded Allergies Type Severity Reaction Last Updated Verified enalapril Allergy Severe Swelling 01/02/20 Yes ROS Review of System CONSTITUTIONAL: No fever or chills EYES: No recent changes SKIN: No rash or itching CARDIOVASCULAR: No chest pain, syncope, palpitations, or edema RESPIRATORY: No SOB or cough GASTROINTESTINAL: No nausea, vomiting or abdominal pain NEUROLOGICAL: No headaches or weakness ENDOCRINE: No cold or heat intolerance GENITOURINARY: No urgency or frequency of urination MUSCULOSKELETAL: No back pain or joint pain LYMPHATICS: No enlarged lymph nodes PSYCHIATRIC: No anxiety or depression Physical Exam Physical Exam GEN.: No apparent distress. Alert and oriented. HEENT: Head is normocephalic, atraumatic NECK: Supple. LUNGS: Clear to auscultation. HEART: RRR, S1, S2 present. Peripheral pulses intact ABDOMEN: Soft, nontender. Positive bowel sounds. EXTREMITIES: Without any cyanosis. NEUROLOGIC: Normal speech, normal tone PSYCHIATRIC: Normal affect, normal mood. SKIN: No ulcerations Vitals Vitals Vital Signs Date Time Temp Pulse Resp B/P (MAP) Pulse Ox O2 Delivery O2 Flow Rate FiO2 03/06/20 14:30 68 20 99 03/06/20 12:04 98.0 164/89 (114) Room Air 98.0 Labs Labs Laboratory Tests Test 03/06/20 12:00 White Blood Count 5.9 x10^3/uL (4.0-11.0) Red Blood Count 3.27 x10^6/uL (4.30-5.70) Hemoglobin 10.5 g/dL (13.0-17.5) Hematocrit 30.8 % (39.0-53.0) Mean Corpuscular Volume 94 fL (79-100) Mean Corpuscular Hemoglobin 32 pg (25-35) Mean Corpuscular Hemoglobin Concent 34 g/dL (31-37) Red Cell Distribution Width 14.1 % (11.5-14.5) Platelet Count 130 x10^3/uL (140-400) Neutrophils (%) (Auto) 51 % (31-73) Lymphocytes (%) (Auto) 28 % (24-48) Monocytes (%) (Auto) 10 % (0-9) Eosinophils (%) (Auto) 11 % (0-3) Basophils (%) (Auto) 0 % (0-3) Neutrophils # (Auto) 3.0 x10^3/uL (1.8-7.7) Lymphocytes # (Auto) 1.6 x10^3/uL (1.0-4.8) Monocytes # (Auto) 0.6 x10^3/uL (0.0-1.1) Eosinophils # (Auto) 0.6 x10^3/uL (0.0-0.7) Basophils # (Auto) 0.0 x10^3/uL (0.0-0.2) Sodium Level 139 mmol/L (136-145) Potassium Level 4.4 mmol/L (3.5-5.1) Chloride Level 98 mmol/L (98-107) Carbon Dioxide Level 28 mmol/L (21-32) Anion Gap 13 (6-14) Blood Urea Nitrogen 49 mg/dL (8-26) Creatinine 14.3 mg/dL (0.7-1.3) Estimated GFR (Cockcroft-Gault) 4.6 BUN/Creatinine Ratio 3 (6-20) Glucose Level 92 mg/dL (70-99) Calcium Level 8.6 mg/dL (8.5-10.1) Total Bilirubin 0.3 mg/dL (0.2-1.0) Aspartate Amino Transf (AST/SGOT) 29 U/L (15-37) Alanine Aminotransferase (ALT/SGPT) 14 U/L (16-63) Alkaline Phosphatase 78 U/L (46-116) Troponin I Quantitative 0.063 ng/mL (0.000-0.055) Total Protein 8.1 g/dL (6.4-8.2) Albumin 3.5 g/dL (3.4-5.0) Albumin/Globulin Ratio 0.8 (1.0-1.7) Laboratory Tests Test 03/06/20 12:00 White Blood Count 5.9 x10^3/uL (4.0-11.0) Red Blood Count 3.27 x10^6/uL (4.30-5.70) Hemoglobin 10.5 g/dL (13.0-17.5) Hematocrit 30.8 % (39.0-53.0) Mean Corpuscular Volume 94 fL (79-100) Mean Corpuscular Hemoglobin 32 pg (25-35) Mean Corpuscular Hemoglobin Concent 34 g/dL (31-37) Red Cell Distribution Width 14.1 % (11.5-14.5) Platelet Count 130 x10^3/uL (140-400) Neutrophils (%) (Auto) 51 % (31-73) Lymphocytes (%) (Auto) 28 % (24-48) Monocytes (%) (Auto) 10 % (0-9) Eosinophils (%) (Auto) 11 % (0-3) Basophils (%) (Auto) 0 % (0-3) Neutrophils # (Auto) 3.0 x10^3/uL (1.8-7.7) Lymphocytes # (Auto) 1.6 x10^3/uL (1.0-4.8) Monocytes # (Auto) 0.6 x10^3/uL (0.0-1.1) Eosinophils # (Auto) 0.6 x10^3/uL (0.0-0.7) Basophils # (Auto) 0.0 x10^3/uL (0.0-0.2) Sodium Level 139 mmol/L (136-145) Potassium Level 4.4 mmol/L (3.5-5.1) Chloride Level 98 mmol/L (98-107) Carbon Dioxide Level 28 mmol/L (21-32) Anion Gap 13 (6-14) Blood Urea Nitrogen 49 mg/dL (8-26) Creatinine 14.3 mg/dL (0.7-1.3) Estimated GFR (Cockcroft-Gault) 4.6 BUN/Creatinine Ratio 3 (6-20) Glucose Level 92 mg/dL (70-99) Calcium Level 8.6 mg/dL (8.5-10.1) Total Bilirubin 0.3 mg/dL (0.2-1.0) Aspartate Amino Transf (AST/SGOT) 29 U/L (15-37) Alanine Aminotransferase (ALT/SGPT) 14 U/L (16-63) Alkaline Phosphatase 78 U/L (46-116) Troponin I Quantitative 0.063 ng/mL (0.000-0.055) Total Protein 8.1 g/dL (6.4-8.2) Albumin 3.5 g/dL (3.4-5.0) Albumin/Globulin Ratio 0.8 (1.0-1.7) VTE Prophylaxis Ordered VTE Prophylaxis Devices: No VTE Pharmacological Prophylaxi: Yes Assessment/Plan Assessment/Plan Vasovagal episode Fall from own height Diabetes mellitus type 2 insulin requiring for controlled Orthostasis? Mildly elevation of troponin of no clinical consequence Plan Trend cardiac troponins Consult cardiology Reassess in the a.m. Further recommendations will be based on the clinical course further recommendations based on clinical course DVT prophylaxis with heparin CLEMENTINA RIVAS MD Mar 06, 2020 15:17
[2020-03-06 19:00] VITALS: BP 133/73
[2020-03-06 23:00] VITALS: BP 171/92
[2020-03-07] MEDS: ZOLPIDEM 5 MG TABLET. PO PRN
[2020-03-07 03:00] VITALS: BP 149/89
[2020-03-07 07:00] VITALS: BP 167/96
[2020-03-07] MEDS: CALCIUM ACETATE 667 MG CAPSULE PO SCH ×5 (08:00→17:31)
[2020-03-07] MEDS: CARVEDILOL 12.5 MG TABLET. PO SCH ×3 (08:00→17:30)
[2020-03-07] MEDS: PANTOPRAZOLE 40 MG TABLET.DR. PO SCH (08:15)
[2020-03-07] MEDS: amLODIPine BESYLATE 5 MG TABLET PO SCH (08:16)
[2020-03-07 11:00] VITALS: BP 160/92
[2020-03-07] MEDS ORDERED: IV NORMAL SALINE 1000ML BAG 1,000 ML IV PRN ×2 (11:00)
[2020-03-07] MEDS ORDERED: diphenhydrAMINE 50 MG/ML VIAL IV PRN ×2 (11:00)
[2020-03-07] MEDS ORDERED: ALBUMIN HUMAN 25% 200 ML IV PRN (11:00)
[2020-03-07] MEDS ORDERED: ACETAMINOPHEN 500 MG TABLET PO PRN (11:00)
[2020-03-07] MEDS ORDERED: DIALYSIS PATIENT. MC PRN (11:00)
--- NOTE | 2020-03-07 11:16 | PDOC2 ---
CONSULT Date of Consult Date of Consult DATE: 03/07/20 TIME: 11:16 Reason for Consult Reason for Consult: ESRD Identification/Chief Complaint Chief Complaint No complaints currently Source Source: Chart review, Patient History of Present Illness Reason for Visit: Patient is a 45-year-old AA with Dx of FSGS Dx in 2007 ,he had a failed renal transplant . He is ESRD , has been on HD for 8 years, he is anuric He reports he had an episode of lightheadedness / orthostasis, ? vasovagal response. He fell and states doesnt remember the details but he hit his head. He reports he usually goes for dialysis only on Monday and Monday as he starts to cramp with fluid removal which has been mostly around 3.2 lts He states he went to Dialysis unit Yesterday but started feeling dizzy and wobbly , he was advised by Dr. Arriaga to go to the ER . He states the rn nicu was concerned that he might have small brain bleed due to fall and needs to be evaluated He says that he feels weak no headache, no blurred vision, no slurred speech, no focal neurological deficits were reported. No dysphagia odynophagia No chest pain or shortness of breath. No nausea vomiting diarrhea, no abdominal pain . Patient is in no acute distress . He states he is unable to get Tx at as he has been told that his Heart function needs to improve . He has tried to make appt with Cardiology through the Tx team at . He has Hx of recurrent dizziness and goes for dialysis mostly 2 /week . Refusing Dialysis today. Denies any complaints when he is lying down Past Medical History Cardiovascular: HTN Pulmonary: No pertinent hx GI: No pertinent hx Heme/Onc: No pertinent hx Hepatobiliary: No pertinent hx Psych: No pertinent hx Renal/: Chronic renal insuff, Acute renal failure, Chronic renal failure Endocrine: Hyperparathyroidism Past Surgical History Past Surgical History: Other, No pertinent history Family History Family History: Hypertension, Other Social History No ALCOHOL: none Drugs: None Lives: with Family Current Problem List Problem List Problems Medical Problems: (1) Dizziness Status: Acute Current Medications Current Medications Current Medications Ondansetron HCl (Zofran) 4 mg PRN Q8HRS PRN IV NAUSEA/VOMITING Last administered on 03/06/20at 13:44; Start 03/06/20 at 13:30; Stop 03/07/20 at 13:29 Aspirin (Aspirin Chewable) 324 mg 1X ONCE PO Last administered on 03/06/20at 13:45; Start 03/06/20 at 13:45; Stop 03/06/20 at 13:55; Status DC Ondansetron HCl (Zofran) 4 mg PRN Q4HRS PRN IV NAUSEA/VOMITING; Start 03/06/20 at 15:15 Zolpidem Tartrate (Ambien) 5 mg PRN QHS PRN PO INSOMNIA Last administered on 03/07/20at 00:00; Start 03/06/20 at 15:15 Acetaminophen (Tylenol) 650 mg PRN Q4HRS PRN PO TEMP OVER 100.4F OR MILD PAIN; Start 03/06/20 at 15:15 Al Hydroxide/Mg Hydroxide (Mylanta Plus Xs) 30 ml PRN DAILY PRN PO HEARTBURN / GAS; Start 03/06/20 at 15:15 Clonidine HCl (Catapres) 0.1 mg PRN Q6HRS PRN PO SBP>160 OR DBP>90; Start 03/06/20 at 15:15 Docusate Sodium (Colace) 100 mg PRN BID PRN PO HARD STOOLS; Start 03/06/20 at 15:15 Albuterol Sulfate (Ventolin Neb Soln) 2.5 mg PRN Q4HRS PRN NEB SHORTNESS OF BREATH; Start 03/06/20 at 15:15 Guaifenesin (Robitussin) 200 mg PRN Q4HRS PRN PO COUGH; Start 03/06/20 at 15:15 Lorazepam (Ativan) 0.5 mg PRN Q4HRS PRN PO ANXIETY / AGITATION; Start 03/06/20 at 15:15 Amlodipine Besylate (Norvasc) 5 mg DAILY PO Last administered on 03/07/20at 08:16; Start 03/07/20 at 09:00 Acetaminophen/ Hydrocodone Bitart (Lortab 5/325) 1 tab PRN Q6HRS PRN PO MODERATE PAIN; Start 03/06/20 at 15:15 Calcium Acetate (Phoslo) 1,334 mg TIDWMEALS PO Last administered on 03/07/20at 08:15; Start 03/06/20 at 17:00 Carvedilol (Coreg) 25 mg BIDWMEALS PO Last administered on 03/07/20at 08:15; Start 03/06/20 at 17:00 Pantoprazole Sodium (Protonix) 40 mg DAILYAC PO Last administered on 03/07/20at 08:15; Start 03/07/20 at 07:30 Sodium Chloride 1,000 ml @ 1,000 mls/hr Q1H PRN IV hypotension; Start 03/07/20 at 11:00; Stop 03/07/20 at 16:59 Albumin Human 200 ml @ 200 mls/hr 1X PRN PRN IV Hypotension; Start 03/07/20 at 11:00; Stop 03/07/20 at 16:59 Acetaminophen (Tylenol) 500 mg 1X PRN PRN PO MILD PAIN / TEMP > 100.3'F; Start 03/07/20 at 11:00; Stop 03/07/20 at 21:00 Diphenhydramine HCl (Benadryl) 25 mg 1X PRN PRN IV ITCHING; Start 03/07/20 at 11:00; Stop 03/07/20 at 21:00 Diphenhydramine HCl (Benadryl) 25 mg 1X PRN PRN IV ITCHING; Start 03/07/20 at 11:00; Stop 03/07/20 at 21:00 Sodium Chloride 1,000 ml @ 400 mls/hr Q2H30M PRN IV PATENCY; Start 03/07/20 at 11:00; Stop 03/07/20 at 22:59 Info (PHARMACY MONITORING -- do not chart) 1 each PRN DAILY PRN MC SEE COMMENTS; Start 03/07/20 at 11:00 Active Scripts Active [Pantoprazole] 40 MG Tablet.dr 40 Mg PO DAILYAC 30 Days Reported [place] 5-325 Tablet (Acetaminophen/Hydrocodone Bitart) 1 Each Tablet 1 Tab PO PRN Q6HRS PRN Carvedilol 25 Mg Tablet 1 Tab PO BID Amlodipine Besylate 5 Mg Tablet 5 Mg PO DAILY Calcium Acetate 667 Mg Tablet 667 Mg PO TIDWMEALS Allergies Allergies: Coded Allergies: enalapril (Verified Allergy, Severe, Swelling, 01/02/20) angioedema ROS Review of System As per HPI, rest of the ROS is negative Physical Exam Physical Exam GEN: NAD HEEN: Om moist NECK Supple CVS: RRR RESP: CTA, Non labored GI: BS + ve, NO Bruit, Non Tender, Non Distended : No Simms Neuro- Grossly Normal Skin No rash Vital Signs Vital Signs Date Time Temp Pulse Resp B/P (MAP) Pulse Ox O2 Delivery O2 Flow Rate FiO2 09/03/18 08:15 Room Air 09/03/18 07:00 98.4 85 18 165/116 (132) 96 1.0 98.4 DIAGNOSIS/ASSESSMENT Vital Signs Vital Signs Date Time Temp Pulse Resp B/P (MAP) Pulse Ox O2 Delivery O2 Flow Rate FiO2 03/07/20 08:16 63 167/96 03/07/20 08:00 Room Air 03/07/20 07:00 97.5 16 100 97.5 Assessment & Plan ESRD- On HD MWF- Dr. Arriaga He reports he mosltly goes for Dialysis 2 /week He is refusing Dialysis today, last HD was on Mon. No e/o Vol Overload, E-lytes stable Anemia- Hgb stable No Indication of JT currently HTN- BP High Continue Home meds Failed Renal Tx - He was on HD until he received Renal TX in Mar 2009 Tx weir in progress at [facility] as per pt Dizziness/ Fall - Cardiology consulted per Pt his heart function in the past has been below 40% and per transplant team cannot get Rx until it is above 40% No records available Labs Labs Laboratory Tests Test 03/06/20 12:00 White Blood Count 5.9 x10^3/uL (4.0-11.0) Red Blood Count 3.27 x10^6/uL (4.30-5.70) Hemoglobin 10.5 g/dL (13.0-17.5) Hematocrit 30.8 % (39.0-53.0) Mean Corpuscular Volume 94 fL (79-100) Mean Corpuscular Hemoglobin 32 pg (25-35) Mean Corpuscular Hemoglobin Concent 34 g/dL (31-37) Red Cell Distribution Width 14.1 % (11.5-14.5) Platelet Count 130 x10^3/uL (140-400) Neutrophils (%) (Auto) 51 % (31-73) Lymphocytes (%) (Auto) 28 % (24-48) Monocytes (%) (Auto) 10 % (0-9) Eosinophils (%) (Auto) 11 % (0-3) Basophils (%) (Auto) 0 % (0-3) Neutrophils # (Auto) 3.0 x10^3/uL (1.8-7.7) Lymphocytes # (Auto) 1.6 x10^3/uL (1.0-4.8) Monocytes # (Auto) 0.6 x10^3/uL (0.0-1.1) Eosinophils # (Auto) 0.6 x10^3/uL (0.0-0.7) Basophils # (Auto) 0.0 x10^3/uL (0.0-0.2) Sodium Level 139 mmol/L (136-145) Potassium Level 4.4 mmol/L (3.5-5.1) Chloride Level 98 mmol/L (98-107) Carbon Dioxide Level 28 mmol/L (21-32) Anion Gap 13 (6-14) Blood Urea Nitrogen 49 mg/dL (8-26) Creatinine 14.3 mg/dL (0.7-1.3) Estimated GFR (Cockcroft-Gault) 4.6 BUN/Creatinine Ratio 3 (6-20) Glucose Level 92 mg/dL (70-99) Calcium Level 8.6 mg/dL (8.5-10.1) Total Bilirubin 0.3 mg/dL (0.2-1.0) Aspartate Amino Transf (AST/SGOT) 29 U/L (15-37) Alanine Aminotransferase (ALT/SGPT) 14 U/L (16-63) Alkaline Phosphatase 78 U/L (46-116) Troponin I Quantitative 0.063 ng/mL (0.000-0.055) Total Protein 8.1 g/dL (6.4-8.2) Albumin 3.5 g/dL (3.4-5.0) Albumin/Globulin Ratio 0.8 (1.0-1.7) Laboratory Tests Test 03/06/20 12:00 White Blood Count 5.9 x10^3/uL (4.0-11.0) Red Blood Count 3.27 x10^6/uL (4.30-5.70) Hemoglobin 10.5 g/dL (13.0-17.5) Hematocrit 30.8 % (39.0-53.0) Mean Corpuscular Volume 94 fL (79-100) Mean Corpuscular Hemoglobin 32 pg (25-35) Mean Corpuscular Hemoglobin Concent 34 g/dL (31-37) Red Cell Distribution Width 14.1 % (11.5-14.5) Platelet Count 130 x10^3/uL (140-400) Neutrophils (%) (Auto) 51 % (31-73) Lymphocytes (%) (Auto) 28 % (24-48) Monocytes (%) (Auto) 10 % (0-9) Eosinophils (%) (Auto) 11 % (0-3) Basophils (%) (Auto) 0 % (0-3) Neutrophils # (Auto) 3.0 x10^3/uL (1.8-7.7) Lymphocytes # (Auto) 1.6 x10^3/uL (1.0-4.8) Monocytes # (Auto) 0.6 x10^3/uL (0.0-1.1) Eosinophils # (Auto) 0.6 x10^3/uL (0.0-0.7) Basophils # (Auto) 0.0 x10^3/uL (0.0-0.2) Sodium Level 139 mmol/L (136-145) Potassium Level 4.4 mmol/L (3.5-5.1) Chloride Level 98 mmol/L (98-107) Carbon Dioxide Level 28 mmol/L (21-32) Anion Gap 13 (6-14) Blood Urea Nitrogen 49 mg/dL (8-26) Creatinine 14.3 mg/dL (0.7-1.3) Estimated GFR (Cockcroft-Gault) 4.6 BUN/Creatinine Ratio 3 (6-20) Glucose Level 92 mg/dL (70-99) Calcium Level 8.6 mg/dL (8.5-10.1) Total Bilirubin 0.3 mg/dL (0.2-1.0) Aspartate Amino Transf (AST/SGOT) 29 U/L (15-37) Alanine Aminotransferase (ALT/SGPT) 14 U/L (16-63) Alkaline Phosphatase 78 U/L (46-116) Troponin I Quantitative 0.063 ng/mL (0.000-0.055) Total Protein 8.1 g/dL (6.4-8.2) Albumin 3.5 g/dL (3.4-5.0) Albumin/Globulin Ratio 0.8 (1.0-1.7) Review All relevant outside records, renal labs, imaging studies, telemetry/EKG's were reviewed. Images Images CxR FINDINGS: A frontal view of the chest is obtained. There is no infiltrate, pleural effusion or pneumothorax. There is stable enlargement of the cardiac silhouette. There is linear atelectasis within the left mid thorax. IMPRESSION: Stable enlargement of the cardiac silhouette. CT head-- IMPRESSION: No acute intracranial hemorrhage. SAW RICO MD Mar 07, 2020 11:16
[2020-03-07 15:00] VITALS: BP 164/82
--- NOTE | 2020-03-07 18:41 | PDOC ---
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 He underwent a transplant in 2007 and he tells me that the graft did well for about 8 years and then failed he is unclear why. He has had terrible difficulties with dialysis and in fact has had to dialyze just a couple of times a week because he becomes so lightheaded with each treatment. His dialysis nurse has been advocating strongly for him and he is trying to get in for another renal transplant at he tells me that his assessment has been held up by a lack of recent cardiac assessment. He was trying to get into the cardiology office near his house through but was not able to get a referral from his primary care. Cardiology was consulted here and their assistance is appreciated. Patient understands that any clearance paperwork will be done through his outpatient offices however it would be reasonable to get an echo before his discharge. Appreciate subspecialty support. Total time today is 30 minutes with greater than 50% in counseling and coordination of care most of which in discussion with patient Problems: (1) Orthostatic hypotension (2) ESRD (end stage renal disease) on dialysis VITAL SIGNS Vital Signs/I&O: Vital Signs Date Time Temp Pulse Resp B/P (MAP) Pulse Ox O2 Delivery O2 Flow Rate FiO2 03/07/20 17:30 63 164/82 03/07/20 15:00 97.8 16 100 Room Air 97.8 I & O 03/06/20 03/06/20 03/07/20 15:00 23:00 07:00 Intake Total 320 ml 700 ml Balance 320 ml 700 ml Patient resting comfortably in bed this evening he is appropriately interactive and in no acute distress HEENT exam is unremarkable for acute abnormality Neck is soft and supple no adenopathy or thyromegaly noted Chest is clear to auscultation anteriorly Heart S1-S2 normal regular rate and rhythm no murmurs or gallops are noted Abdomen soft nontender nondistended no masses organomegaly noted Extremity exam is unremarkable for acute abnormality ALLERGIES Allergies: Allergies Coded Allergies Type Severity Reaction Last Updated Verified enalapril Allergy Severe Swelling 01/02/20 Yes MEDS Medications: Current Medications Medications (Trade) Dose Ordered Sig/Olivia Route PRN Reason Start Time Stop Time Status Last Admin Dose Admin Amlodipine Besylate (Norvasc) 5 mg DAILY PO 03/07/20 09:00 03/07/20 08:16 Pantoprazole Sodium (Protonix) 40 mg DAILYAC PO 03/07/20 07:30 03/07/20 08:15 LAB Lab: No labs this morning ASSESSMENT & PLAN A&P Plan as noted above This note was created using Alignable and may have omissions and/or errors due to 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 Justicifation of Admission Dx: Justifications for Admission: Justification of Admission Dx: Yes REDD STEELE MD Mar 07, 2020 18:41
[2020-03-07 19:00] VITALS: BP 152/83
[2020-03-07 23:00] VITALS: BP 156/87
[2020-03-08 03:00] VITALS: BP 150/89
[2020-03-08 07:00] VITALS: BP 170/96
[2020-03-08] MEDS: CARVEDILOL 12.5 MG TABLET. PO SCH ×2 (08:00→17:33)
[2020-03-08] MEDS: CALCIUM ACETATE 667 MG CAPSULE PO SCH ×3 (08:00→17:32)
[2020-03-08] MEDS: PANTOPRAZOLE 40 MG TABLET.DR. PO SCH (08:00)
[2020-03-08] MEDS: amLODIPine BESYLATE 5 MG TABLET PO SCH (08:00)
--- NOTE | 2020-03-08 08:42 | PDOC ---
[employer] PROGRESS NOTE Date of Service DOS: DATE: 03/08/20 TIME: 08:36 Chief Complaint Chief Complaint ESRD- On HD MWF- Dr. Arriaga. He reports he mosltly goes for Dialysis 2 /week Anemia of chronic disease - Hgb stable HTN- BP High. Continue Home meds H/o FSGS s/p Failed Renal Tx - He was on HD until he received Renal TX in Mar 2009. Needs improved cardiac function to qualify for renal transplant again Dizziness/ Fall - Cardiology consulted. Will order echo given prior EF noted 20% in 2018 H/o systolic CHF - noted from 2018, no records available and patient has little insight into his health history Obsessive thought, confusion - will consult psychiatry for recommendations FEN - renal PPX - heparin FULL CODE Dispo - inpatient for recurrent syncope, will need echo to assess structural cardiac disease as etiology History of Present Illness History of Present Illness Mr Molina is a 45-year-old M w/PMHx FSGS Dx 2007 s/p failed renal transplant now ESRD on HD for 8 years admitted for an episode of lightheadedness / orthostasis vasovagal response. He fell and states doesn't remember the details but he hit his head. He skipped dialysis due to his dizziness and was advised to go to the ER. He is not able to elaborate on his history. CT head negative for acute abnormalities. Nephrology consulted as well as cardiology given his history of reduced EF on echo in 2018 and recurrent syncope and dizziness. Seen on 2L NCO2. His only complaint to me is he is still feeling dizzy and lightheaded while laying in bed. Feels short of breath when asked to go to the commode. He has very little appetite. Afebrile. He is asking me for echocardiogram report that says his ejection fraction is greater than 40% so that he can get a new kidney. No chest pain. Vitals/I&O Vitals/I&O: Vital Signs Date Time Temp Pulse Resp B/P (MAP) Pulse Ox O2 Delivery O2 Flow Rate FiO2 03/08/20 08:00 67 150/89 03/08/20 07:00 98.0 19 100 Room Air 98.0 I & O 03/07/20 03/07/20 03/08/20 15:00 23:00 07:00 Intake Total 440 ml 500 ml Balance 440 ml 500 ml Physical Exam General: Alert, Cooperative Heart: Regular rate Lungs: Clear, Wheezing Assessment and Plan Assessmemt and Plan Problems Medical Problems: (1) Dizziness Status: Acute Comment Review of Relevant I have reviewed the following items stevie (where applicable) has been applied. Medications: Current Medications Medications (Trade) Dose Ordered Sig/Olivia Route PRN Reason Start Time Stop Time Status Last Admin Dose Admin Amlodipine Besylate (Norvasc) 5 mg DAILY PO 03/07/20 09:00 03/08/20 08:00 Justicifation of Admission Dx: Justifications for Admission: Justification of Admission Dx: Yes COURTNEY CASAS MD Mar 08, 2020 08:42
[2020-03-08 10:31] LABS: BASO % 1 % (0-3); EOS # 0.7 x10^3/uL (0.0-0.7); EOS % 12 % (0-3); HEMOGLOBIN 10.2 g/dL (13.0-17.5); LYMPH # 1.7 x10^3/uL (1.0-4.8); LYMPH % 31 % (24-48); MEAN CORPUSCULAR HEMOGLOBIN 32 pg (25-35); MEAN CORPUSCULAR HGB CONC 34 g/dL (31-37); MEAN CORPUSCULAR VOLUME 94 fL (79-100); MONO # 0.5 x10^3/uL (0.0-1.1); MONO % 10 % (0-9); NEUT # 2.5 x10^3/uL (1.8-7.7); NEUT % 46 % (31-73); PLATELET COUNT 126 x10^3/uL (140-400); RED BLOOD COUNT 3.19 x10^6/uL (4.30-5.70); RED CELL DISTRIBUTION WIDTH 14.1 % (11.5-14.5); WHITE BLOOD COUNT 5.5 x10^3/uL (4.0-11.0)
[2020-03-08 10:35] LABS: CALCIUM 9.1 mg/dL (8.5-10.1); GFR 3.3; POTASSIUM 4.9 mmol/L (3.5-5.1)
[2020-03-08 10:45] VITALS: BP 159/84
--- NOTE | 2020-03-08 12:14 | PDOC2 ---
CONSULT Date of Consult Date of Consult DATE: 03/08/20 TIME: 12:14 Reason for Consult Reason for Consult: Syncope, cardiomyopathy, slightly elevated troponin level Referring Physician Referring Physician: Dr. Cottrell Identification/Chief Complaint Chief Complaint Syncope Source Source: Chart review, Patient History of Present Illness Reason for Visit: 44-year-old male with history of focal glomerulosclerosis and end-stage renal disease underwent kidney transplantation in 2007 but unfortunately had rejection. He is currently on hemodialysis and usually follows at [facility]. Patient presented complaining of lightheadedness and dizziness after he had dialysis and fell down. He denied any loss of consciousness this time but last week, he apparently had an episode of syncope after dialysis and hurt his head. He denied any chest pain, orthopnea/PND, palpitations. He apparently was told that his heart was 'functioning at 20%' (?EF) at [facility]. Past Medical History Cardiovascular: HTN Pulmonary: No pertinent hx GI: No pertinent hx Heme/Onc: No pertinent hx Hepatobiliary: No pertinent hx Psych: No pertinent hx Renal/: Chronic renal insuff, Acute renal failure, Chronic renal failure Endocrine: Hyperparathyroidism Past Surgical History Past Surgical History: Other, No pertinent history Family History Family History: Hypertension, Other Social History No ALCOHOL: none Drugs: None Lives: with Family Current Problem List Problem List Problems Medical Problems: (1) Dizziness Status: Acute Current Medications Current Medications Current Medications Ondansetron HCl (Zofran) 4 mg PRN Q8HRS PRN IV NAUSEA/VOMITING Last administered on 03/06/20at 13:44; Start 03/06/20 at 13:30; Stop 03/07/20 at 13:29; Status DC Aspirin (Aspirin Chewable) 324 mg 1X ONCE PO Last administered on 03/06/20at 13:45; Start 03/06/20 at 13:45; Stop 03/06/20 at 13:55; Status DC Ondansetron HCl (Zofran) 4 mg PRN Q4HRS PRN IV NAUSEA/VOMITING; Start 03/06/20 at 15:15 Zolpidem Tartrate (Ambien) 5 mg PRN QHS PRN PO INSOMNIA Last administered on 03/07/20at 00:00; Start 03/06/20 at 15:15 Acetaminophen (Tylenol) 650 mg PRN Q4HRS PRN PO TEMP OVER 100.4F OR MILD PAIN; Start 03/06/20 at 15:15 Al Hydroxide/Mg Hydroxide (Mylanta Plus Xs) 30 ml PRN DAILY PRN PO HEARTBURN / GAS; Start 03/06/20 at 15:15 Clonidine HCl (Catapres) 0.1 mg PRN Q6HRS PRN PO SBP>160 OR DBP>90; Start 03/06/20 at 15:15 Docusate Sodium (Colace) 100 mg PRN BID PRN PO HARD STOOLS; Start 03/06/20 at 15:15 Albuterol Sulfate (Ventolin Neb Soln) 2.5 mg PRN Q4HRS PRN NEB SHORTNESS OF BREATH; Start 03/06/20 at 15:15 Guaifenesin (Robitussin) 200 mg PRN Q4HRS PRN PO COUGH; Start 03/06/20 at 15:15 Lorazepam (Ativan) 0.5 mg PRN Q4HRS PRN PO ANXIETY / AGITATION; Start 03/06/20 at 15:15 Amlodipine Besylate (Norvasc) 5 mg DAILY PO Last administered on 03/08/20at 08:00; Start 03/07/20 at 09:00 Acetaminophen/ Hydrocodone Bitart (Lortab 5/325) 1 tab PRN Q6HRS PRN PO MODERATE PAIN; Start 03/06/20 at 15:15 Calcium Acetate (Phoslo) 1,334 mg TIDWMEALS PO Last administered on 03/08/20at 12:08; Start 03/06/20 at 17:00 Carvedilol (Coreg) 25 mg BIDWMEALS PO Last administered on 03/08/20at 08:00; Start 03/06/20 at 17:00 Pantoprazole Sodium (Protonix) 40 mg DAILYAC PO Last administered on 03/08/20at 08:00; Start 03/07/20 at 07:30 Sodium Chloride 1,000 ml @ 1,000 mls/hr Q1H PRN IV hypotension; Start 03/07/20 at 11:00; Stop 03/07/20 at 16:59; Status DC Albumin Human 200 ml @ 200 mls/hr 1X PRN PRN IV Hypotension; Start 03/07/20 at 11:00; Stop 03/07/20 at 16:59; Status DC Acetaminophen (Tylenol) 500 mg 1X PRN PRN PO MILD PAIN / TEMP > 100.3'F; Start 03/07/20 at 11:00; Stop 03/07/20 at 21:00; Status DC Diphenhydramine HCl (Benadryl) 25 mg 1X PRN PRN IV ITCHING; Start 03/07/20 at 11:00; Stop 03/07/20 at 21:00; Status DC Diphenhydramine HCl (Benadryl) 25 mg 1X PRN PRN IV ITCHING; Start 03/07/20 at 11:00; Stop 03/07/20 at 21:00; Status DC Sodium Chloride 1,000 ml @ 400 mls/hr Q2H30M PRN IV PATENCY; Start 03/07/20 at 11:00; Stop 03/07/20 at 22:59; Status DC Info (PHARMACY MONITORING -- do not chart) 1 each PRN DAILY PRN MC SEE COMMENTS; Start 03/07/20 at 11:00 Active Scripts Active [Pantoprazole] 40 MG Tablet.dr 40 Mg PO DAILYAC 30 Days Reported [place] 5-325 Tablet (Acetaminophen/Hydrocodone Bitart) 1 Each Tablet 1 Tab PO PRN Q6HRS PRN Carvedilol 25 Mg Tablet 1 Tab PO BID Amlodipine Besylate 5 Mg Tablet 5 Mg PO DAILY Calcium Acetate 667 Mg Tablet 667 Mg PO TIDWMEALS Allergies Allergies: Coded Allergies: enalapril (Verified Allergy, Severe, Swelling, 01/02/20) angioedema ROS PSYCHOLOGICAL ROS: No: Hallucinations, Mood Swings Respiratory: No: Hemoptysis, Shortness of breath Cardiovascular: No Chest Pain, No Palpitations Gastrointestinal: No Vomiting, No Diarrhea Genitourinary: No Hematuria Neurological: Yes Dizziness; No Seizures Skin: No Rash Physical Exam General: Alert, No acute distress HEENT: Atraumatic, PERRLA Lungs: Clear to auscultation Heart: Regular rate Abdomen: Soft Extremities: No edema Neuro: Normal speech Psych/Mental Status: Mood NL Vitals VITALS Vital Signs Date Time Temp Pulse Resp B/P (MAP) Pulse Ox O2 Delivery O2 Flow Rate FiO2 03/08/20 10:45 97.9 66 19 159/84 (109) 100 Room Air 97.9 Labs Labs Laboratory Tests Test 03/08/20 09:45 White Blood Count 5.5 x10^3/uL (4.0-11.0) Red Blood Count 3.19 x10^6/uL (4.30-5.70) Hemoglobin 10.2 g/dL (13.0-17.5) Hematocrit 30.0 % (39.0-53.0) Mean Corpuscular Volume 94 fL (79-100) Mean Corpuscular Hemoglobin 32 pg (25-35) Mean Corpuscular Hemoglobin Concent 34 g/dL (31-37) Red Cell Distribution Width 14.1 % (11.5-14.5) Platelet Count 126 x10^3/uL (140-400) Neutrophils (%) (Auto) 46 % (31-73) Lymphocytes (%) (Auto) 31 % (24-48) Monocytes (%) (Auto) 10 % (0-9) Eosinophils (%) (Auto) 12 % (0-3) Basophils (%) (Auto) 1 % (0-3) Neutrophils # (Auto) 2.5 x10^3/uL (1.8-7.7) Lymphocytes # (Auto) 1.7 x10^3/uL (1.0-4.8) Monocytes # (Auto) 0.5 x10^3/uL (0.0-1.1) Eosinophils # (Auto) 0.7 x10^3/uL (0.0-0.7) Basophils # (Auto) 0.0 x10^3/uL (0.0-0.2) Sodium Level 137 mmol/L (136-145) Potassium Level 4.9 mmol/L (3.5-5.1) Chloride Level 96 mmol/L (98-107) Carbon Dioxide Level 27 mmol/L (21-32) Anion Gap 14 (6-14) Blood Urea Nitrogen 74 mg/dL (8-26) Creatinine 19.0 mg/dL (0.7-1.3) Estimated GFR (Cockcroft-Gault) 3.3 Glucose Level 88 mg/dL (70-99) Calcium Level 9.1 mg/dL (8.5-10.1) Troponin I Quantitative 0.036 ng/mL (0.000-0.055) Laboratory Tests Test 03/08/20 09:45 White Blood Count 5.5 x10^3/uL (4.0-11.0) Red Blood Count 3.19 x10^6/uL (4.30-5.70) Hemoglobin 10.2 g/dL (13.0-17.5) Hematocrit 30.0 % (39.0-53.0) Mean Corpuscular Volume 94 fL (79-100) Mean Corpuscular Hemoglobin 32 pg (25-35) Mean Corpuscular Hemoglobin Concent 34 g/dL (31-37) Red Cell Distribution Width 14.1 % (11.5-14.5) Platelet Count 126 x10^3/uL (140-400) Neutrophils (%) (Auto) 46 % (31-73) Lymphocytes (%) (Auto) 31 % (24-48) Monocytes (%) (Auto) 10 % (0-9) Eosinophils (%) (Auto) 12 % (0-3) Basophils (%) (Auto) 1 % (0-3) Neutrophils # (Auto) 2.5 x10^3/uL (1.8-7.7) Lymphocytes # (Auto) 1.7 x10^3/uL (1.0-4.8) Monocytes # (Auto) 0.5 x10^3/uL (0.0-1.1) Eosinophils # (Auto) 0.7 x10^3/uL (0.0-0.7) Basophils # (Auto) 0.0 x10^3/uL (0.0-0.2) Sodium Level 137 mmol/L (136-145) Potassium Level 4.9 mmol/L (3.5-5.1) Chloride Level 96 mmol/L (98-107) Carbon Dioxide Level 27 mmol/L (21-32) Anion Gap 14 (6-14) Blood Urea Nitrogen 74 mg/dL (8-26) Creatinine 19.0 mg/dL (0.7-1.3) Estimated GFR (Cockcroft-Gault) 3.3 Glucose Level 88 mg/dL (70-99) Calcium Level 9.1 mg/dL (8.5-10.1) Troponin I Quantitative 0.036 ng/mL (0.000-0.055) Assessment/Plan Assessment/Plan 1. Lightheadedness and syncope, usually after dialysis. Check orthostatics. We will consider event monitor as an outpatient. 2. Slightly elevated troponin level, most probably demand ischemia. We will consider ischemic evaluation as an outpatient. 3. Chronic systolic heart failure, EF 20% per patient. He is clinically well compensated. Will obtain records from [facility] and repeat 2D echocardiogram. 4. Hypertension: Blood pressure elevated. Increase Norvasc for better control. 5. End-stage renal disease, rejected kidney transplantation in the past. Continue hemodialysis per nephrology team. Thank you for your consultation CHANTELL YATES MD Mar 08, 2020 12:14
--- NOTE | 2020-03-08 14:45 | PDOC ---
DATE OF SERVICE DATE: 03/08/20 TIME: 14:42 SUBJECTIVE ROS Stable, No complaints , denies dizziness OBJECTIVE Vital Signs Vital Signs Date Time Temp Pulse Resp B/P (MAP) Pulse Ox O2 Delivery O2 Flow Rate FiO2 03/08/20 10:45 97.9 66 19 159/84 (109) 100 Room Air 97.9 I & 0 Intake and Output 03/08/20 07:00 Intake Total 940 ml Balance 940 ml Intake Oral 940 ml # Voids 2 PHYSICAL EXAM Physical Exam GEN: NAD HEEN: Om moist NECK Supple CVS: RRR RESP: CTA, Non labored GI: BS + ve, NO Bruit, Non Tender, Non Distended : No Simms Neuro- Grossly Normal Skin No rash DIAGNOSIS/ASSESSMENT Assessment & Plan ESRD- On HD MWF- Dr. Arriaga He reports he goes for Dialysis 2 /week He is refused Dialysis , last HD was Mon, refused yesterday No e/o Vol Overload, E-lytes stable Anemia- Hgb stable No Indication of JT currently HTN- BP High Continue Home meds Failed Renal Tx - He was on HD until he received Renal TX in Mar 2009 Tx weir in progress at [facility] as per pt Dizziness/ Fall - Cardiology consulted per Pt his heart function in the past has been below 40% and per transplant team cannot get Rx until it is above 40% No records available COMMENT/RELEVANT DATA Meds Current Medications Medications (Trade) Dose Ordered Sig/Olivia Start Time Stop Time Status Last Admin Dose Admin Acetaminophen (Tylenol) 500 mg 1X PRN PRN 03/07/20 11:00 03/07/20 21:00 DC Acetaminophen/ Hydrocodone Bitart (Lortab 5/325) 1 tab PRN Q6HRS PRN 03/06/20 15:15 Al Hydroxide/Mg Hydroxide (Mylanta Plus Xs) 30 ml PRN DAILY PRN 03/06/20 15:15 Albumin Human 200 ml @ 200 mls/hr 1X PRN PRN 03/07/20 11:00 03/07/20 16:59 DC Albuterol Sulfate (Ventolin Neb Soln) 2.5 mg PRN Q4HRS PRN 03/06/20 15:15 Amlodipine Besylate (Norvasc) 10 mg DAILY 03/09/20 09:00 Aspirin (Aspirin Chewable) 324 mg 1X ONCE 03/06/20 13:45 03/06/20 13:55 DC 03/06/20 13:45 324 MG Calcium Acetate (Phoslo) 1,334 mg TIDWMEALS 03/06/20 17:00 03/08/20 12:08 1,334 MG Carvedilol (Coreg) 25 mg BIDWMEALS 03/06/20 17:00 03/08/20 08:00 25 MG Clonidine HCl (Catapres) 0.1 mg PRN Q6HRS PRN 03/06/20 15:15 Diphenhydramine HCl (Benadryl) 25 mg 1X PRN PRN 03/07/20 11:00 03/07/20 21:00 DC Docusate Sodium (Colace) 100 mg PRN BID PRN 03/06/20 15:15 Guaifenesin (Robitussin) 200 mg PRN Q4HRS PRN 03/06/20 15:15 Info (PHARMACY MONITORING -- do not chart) 1 each PRN DAILY PRN 03/07/20 11:00 Lorazepam (Ativan) 0.5 mg PRN Q4HRS PRN 03/06/20 15:15 Ondansetron HCl (Zofran) 4 mg PRN Q4HRS PRN 03/06/20 15:15 Pantoprazole Sodium (Protonix) 40 mg DAILYAC 03/07/20 07:30 03/08/20 08:00 40 MG Sodium Chloride 1,000 ml @ 400 mls/hr Q2H30M PRN 03/07/20 11:00 03/07/20 22:59 DC Zolpidem Tartrate (Ambien) 5 mg PRN QHS PRN 03/06/20 15:15 03/07/20 00:00 5 MG Lab Laboratory Tests Test 03/08/20 09:45 White Blood Count 5.5 x10^3/uL (4.0-11.0) Red Blood Count 3.19 x10^6/uL (4.30-5.70) Hemoglobin 10.2 g/dL (13.0-17.5) Hematocrit 30.0 % (39.0-53.0) Mean Corpuscular Volume 94 fL (79-100) Mean Corpuscular Hemoglobin 32 pg (25-35) Mean Corpuscular Hemoglobin Concent 34 g/dL (31-37) Red Cell Distribution Width 14.1 % (11.5-14.5) Platelet Count 126 x10^3/uL (140-400) Neutrophils (%) (Auto) 46 % (31-73) Lymphocytes (%) (Auto) 31 % (24-48) Monocytes (%) (Auto) 10 % (0-9) Eosinophils (%) (Auto) 12 % (0-3) Basophils (%) (Auto) 1 % (0-3) Neutrophils # (Auto) 2.5 x10^3/uL (1.8-7.7) Lymphocytes # (Auto) 1.7 x10^3/uL (1.0-4.8) Monocytes # (Auto) 0.5 x10^3/uL (0.0-1.1) Eosinophils # (Auto) 0.7 x10^3/uL (0.0-0.7) Basophils # (Auto) 0.0 x10^3/uL (0.0-0.2) Sodium Level 137 mmol/L (136-145) Potassium Level 4.9 mmol/L (3.5-5.1) Chloride Level 96 mmol/L (98-107) Carbon Dioxide Level 27 mmol/L (21-32) Anion Gap 14 (6-14) Blood Urea Nitrogen 74 mg/dL (8-26) Creatinine 19.0 mg/dL (0.7-1.3) Estimated GFR (Cockcroft-Gault) 3.3 Glucose Level 88 mg/dL (70-99) Calcium Level 9.1 mg/dL (8.5-10.1) Troponin I Quantitative 0.036 ng/mL (0.000-0.055) Results All relevant outside records, renal labs, imaging studies, telemetry/EKG's were reviewed. Justicifation of Admission Dx: Justifications for Admission: Justification of Admission Dx: Yes SAW RICO MD Mar 08, 2020 14:45
[2020-03-08 15:00] VITALS: BP 162/82
--- NOTE | 2020-03-08 16:08 | PDOC1 ---
History & Psych Evaluation Date of Service: DOS: DATE: 03/08/20 TIME: 16:07 Source: Source: Caregiver, Chart review, Patient Identification: Identification He is a 44-year-old -Martiniquais gentleman with end-stage renal disease. Chief Complaint: Chief Complaint Dizziness, altered mental status/confusion History of Present Illness: HPI: He is a 44-year-old -Martiniquais gentleman with no prior psychiatric history of mental health issues admitted with altered mental status, confusion, lightheadedness as dizzy spells. Upon interview he appears very cooperative, interactive and calm and quiet. He states, on Monday he missed his dialysis appointment and next day he was feeling self confused and altered. States, he has never been diagnosed with depression or anxiety, bipolar mood disorder or psychosis. Denies history of auditory or visual hallucinations. Denies history of manjeet or hypomania. States, he has stress factors in his life particularly his kidney issues. He received kidney transplant in 2008 which remained viable until 2018 when it had rejection. States, kidney got rejected though he was very compliant with medications and immunosuppressants. States, due to ongoing of kidney issues there are moments when he gets depressed and down with some hopelessness. He has no history of suicidal or homicidal thoughts or suicidal attempt. He lives with his mother and sister. Upon mental status examination he appears fully alert and oriented to all spheres. Past Psychiatric History: Denies past psychiatric history of mental health challenges. Denies past psychiatric history of hospital admission. No history of suicidal ideation or suicidal attempt. Past Medical History: Please see medical chart for details Family History: Mother has seizures. Sister has lupus Social History: Social History: He lives with his mother and sister. He denies illicit substance use. Denies history of legal issues. Current Medications: Current Medications Current Medications Medications (Trade) Dose Ordered Sig/Olivia Start Time Stop Time Status Last Admin Dose Admin Acetaminophen (Tylenol) 500 mg 1X PRN PRN 03/07/20 11:00 03/07/20 21:00 DC Acetaminophen/ Hydrocodone Bitart (Lortab 5/325) 1 tab PRN Q6HRS PRN 03/06/20 15:15 Al Hydroxide/Mg Hydroxide (Mylanta Plus Xs) 30 ml PRN DAILY PRN 03/06/20 15:15 Albumin Human 200 ml @ 200 mls/hr 1X PRN PRN 03/07/20 11:00 03/07/20 16:59 DC Albuterol Sulfate (Ventolin Neb Soln) 2.5 mg PRN Q4HRS PRN 03/06/20 15:15 Amlodipine Besylate (Norvasc) 10 mg DAILY 03/09/20 09:00 Aspirin (Aspirin Chewable) 324 mg 1X ONCE 03/06/20 13:45 03/06/20 13:55 DC 03/06/20 13:45 324 MG Calcium Acetate (Phoslo) 1,334 mg TIDWMEALS 03/06/20 17:00 03/08/20 12:08 1,334 MG Carvedilol (Coreg) 25 mg BIDWMEALS 03/06/20 17:00 03/08/20 08:00 25 MG Clonidine HCl (Catapres) 0.1 mg PRN Q6HRS PRN 03/06/20 15:15 Diphenhydramine HCl (Benadryl) 25 mg 1X PRN PRN 03/07/20 11:00 03/07/20 21:00 DC Docusate Sodium (Colace) 100 mg PRN BID PRN 03/06/20 15:15 Guaifenesin (Robitussin) 200 mg PRN Q4HRS PRN 03/06/20 15:15 Info (PHARMACY MONITORING -- do not chart) 1 each PRN DAILY PRN 03/07/20 11:00 Lorazepam (Ativan) 0.5 mg PRN Q4HRS PRN 03/06/20 15:15 Ondansetron HCl (Zofran) 4 mg PRN Q4HRS PRN 03/06/20 15:15 Pantoprazole Sodium (Protonix) 40 mg DAILYAC 03/07/20 07:30 03/08/20 08:00 40 MG Sodium Chloride 1,000 ml @ 400 mls/hr Q2H30M PRN 03/07/20 11:00 03/07/20 22:59 DC Zolpidem Tartrate (Ambien) 5 mg PRN QHS PRN 03/06/20 15:15 03/07/20 00:00 5 MG Allergies: Allergies: Coded Allergies: enalapril (Verified Allergy, Severe, Swelling, 01/02/20) angioedema Mental Status Examination: Mental Status Examination -Martiniquais gentleman appears as a stated age Cooperative and interactive Alert and oriented Thought process logical and goal-directed Denies auditory or visual hallucinations. No abnormal perception noted. Denies suicidal or homicidal thoughts. Mood is a stable Affect is slightly constricted Insight is fair Judgment is fair Impulse control is fair Attention span and concentration fair Recent and remote memory intact. ROS: 14 point review of system is otherwise negative except for stated above. Physical Exam: Refer to Physician's note. FOUNDRY TENDER: No focal deficit MSK: No EPS, TDK, or abnormal involuntary movements Vitals: Vitals Vital Signs Date Time Temp Pulse Resp B/P (MAP) Pulse Ox O2 Delivery O2 Flow Rate FiO2 03/08/20 15:00 97.9 115 19 162/82 (108) 100 Room Air 97.9 Labs: Labs Laboratory Tests Test 03/08/20 09:45 White Blood Count 5.5 x10^3/uL (4.0-11.0) Red Blood Count 3.19 x10^6/uL (4.30-5.70) Hemoglobin 10.2 g/dL (13.0-17.5) Hematocrit 30.0 % (39.0-53.0) Mean Corpuscular Volume 94 fL (79-100) Mean Corpuscular Hemoglobin 32 pg (25-35) Mean Corpuscular Hemoglobin Concent 34 g/dL (31-37) Red Cell Distribution Width 14.1 % (11.5-14.5) Platelet Count 126 x10^3/uL (140-400) Neutrophils (%) (Auto) 46 % (31-73) Lymphocytes (%) (Auto) 31 % (24-48) Monocytes (%) (Auto) 10 % (0-9) Eosinophils (%) (Auto) 12 % (0-3) Basophils (%) (Auto) 1 % (0-3) Neutrophils # (Auto) 2.5 x10^3/uL (1.8-7.7) Lymphocytes # (Auto) 1.7 x10^3/uL (1.0-4.8) Monocytes # (Auto) 0.5 x10^3/uL (0.0-1.1) Eosinophils # (Auto) 0.7 x10^3/uL (0.0-0.7) Basophils # (Auto) 0.0 x10^3/uL (0.0-0.2) Sodium Level 137 mmol/L (136-145) Potassium Level 4.9 mmol/L (3.5-5.1) Chloride Level 96 mmol/L (98-107) Carbon Dioxide Level 27 mmol/L (21-32) Anion Gap 14 (6-14) Blood Urea Nitrogen 74 mg/dL (8-26) Creatinine 19.0 mg/dL (0.7-1.3) Estimated GFR (Cockcroft-Gault) 3.3 Glucose Level 88 mg/dL (70-99) Calcium Level 9.1 mg/dL (8.5-10.1) Troponin I Quantitative 0.036 ng/mL (0.000-0.055) Laboratory Tests Test 03/08/20 09:45 White Blood Count 5.5 x10^3/uL (4.0-11.0) Red Blood Count 3.19 x10^6/uL (4.30-5.70) Hemoglobin 10.2 g/dL (13.0-17.5) Hematocrit 30.0 % (39.0-53.0) Mean Corpuscular Volume 94 fL (79-100) Mean Corpuscular Hemoglobin 32 pg (25-35) Mean Corpuscular Hemoglobin Concent 34 g/dL (31-37) Red Cell Distribution Width 14.1 % (11.5-14.5) Platelet Count 126 x10^3/uL (140-400) Neutrophils (%) (Auto) 46 % (31-73) Lymphocytes (%) (Auto) 31 % (24-48) Monocytes (%) (Auto) 10 % (0-9) Eosinophils (%) (Auto) 12 % (0-3) Basophils (%) (Auto) 1 % (0-3) Neutrophils # (Auto) 2.5 x10^3/uL (1.8-7.7) Lymphocytes # (Auto) 1.7 x10^3/uL (1.0-4.8) Monocytes # (Auto) 0.5 x10^3/uL (0.0-1.1) Eosinophils # (Auto) 0.7 x10^3/uL (0.0-0.7) Basophils # (Auto) 0.0 x10^3/uL (0.0-0.2) Sodium Level 137 mmol/L (136-145) Potassium Level 4.9 mmol/L (3.5-5.1) Chloride Level 96 mmol/L (98-107) Carbon Dioxide Level 27 mmol/L (21-32) Anion Gap 14 (6-14) Blood Urea Nitrogen 74 mg/dL (8-26) Creatinine 19.0 mg/dL (0.7-1.3) Estimated GFR (Cockcroft-Gault) 3.3 Glucose Level 88 mg/dL (70-99) Calcium Level 9.1 mg/dL (8.5-10.1) Troponin I Quantitative 0.036 ng/mL (0.000-0.055) Diagnosis: Diagnosis: Acute delirium likely hypoactive Unspecified depression, rule out major depressive disorder Assessment: Gentleman who denies past psychiatric history of depression anxiety or mood d isorder admitted with confusion. History and symptomatology consistent with acute confusion likely delirium secondary to missing his dialysis appointment. Additionally, he has moments when he gets depressed as he has substantial risk factors to get depressed. However, criteria for depression is not clear. He is not inclined towards psychotropic medications at this point Plan: Patient has not preferred to take psychotropics at this point. Risks, benefits, alternatives of the treatment are discussed. Risk involved with no treatment are also discussed. He is in agreement with plan and voiced understanding. Psychoeducation provided. Supportive psychotherapy provided. Brief insight oriented psychotherapy provided. Thank you for involving inpatient care REGIS TYSON MD Mar 08, 2020 16:08
[2020-03-08 19:00] VITALS: BP 177/92
[2020-03-08 23:00] VITALS: BP 161/95
[2020-03-09] MEDS: ZOLPIDEM 5 MG TABLET. PO PRN (00:16)
[2020-03-09 03:00] VITALS: BP 172/100
[2020-03-09 07:00] VITALS: BP 175/98
[2020-03-09] MEDS: CALCIUM ACETATE 667 MG CAPSULE PO SCH ×2 (07:42→13:27)
[2020-03-09] MEDS: PANTOPRAZOLE 40 MG TABLET.DR. PO SCH (07:42)
[2020-03-09] MEDS: CARVEDILOL 12.5 MG TABLET. PO SCH (08:00)
[2020-03-09] MEDS ORDERED: IV NORMAL SALINE 1000ML BAG 1,000 ML IV PRN ×2 (08:03)
[2020-03-09] MEDS ORDERED: DIALYSIS PATIENT. MC PRN (08:15)
[2020-03-09] MEDS ORDERED: diphenhydrAMINE 50 MG/ML VIAL IV PRN ×2 (08:15)
[2020-03-09] MEDS ORDERED: amLODIPine BESYLATE 5 MG TABLET PO SCH (09:00)
--- NOTE | 2020-03-09 11:18 | NUR ---
SW following. Discussed with RN, pt from home with mother and sister, ad rubin, room air, renal diet. Pt does HD MWF at [facility]. Echo today to determine EF. SW will continue to follow.
[2020-03-09 13:29] VITALS: BP_DIAS 81
--- NOTE | 2020-03-09 13:33 | PDOC ---
Renal-Progress Notes Subjective Notes Notes NO NEW COMPLAINTS History of Present Illness Hx of present illness STABLE Vitals Vitals Vital Signs Date Time Temp Pulse Resp B/P (MAP) Pulse Ox O2 Delivery O2 Flow Rate FiO2 03/09/20 13:29 88 155/81 03/09/20 08:07 100 Room Air 03/09/20 07:00 97.7 18 97.7 Weight Weight [ ] I.O. Intake and Output Intake and Output 03/09/20 06:59 Intake Total 1020 ml Output Total 1000 ml Balance 20 ml Intake Oral 1020 ml Output Urine Total 1000 ml # Voids 1 # Bowel Movements 1 Review of Systems Constitutional: yes: weakness, alert, oriented Ears/Nose/Throat: Yes: no symptom reported Eyes: Yes: no symptom reported Pulmonary: Yes no symptom reported, Yes dyspnea Cardiovascular: Yes no symptom reported Gastrointestional: Yes: no symptom reported Genitourinary: Yes: no symptom reported Musculoskeletal: Yes: no symptom reported Skin: Yes no symptom reported Psychiatric/Neurological: Yes: no symptom reported Endocrine: Yes: no symptom reported Physical Exam Skin: warm Heart: S1S2 Abdomen: soft, bowel sounds present Extremities: pulses present Neurology: alert, oriented Assessment Assessment IMP ANEMIA HTN NON COMPLIANCE FAILED RENAL TX DUE TO NON COMPLIANCE CM WITH EF OF ?40% ESRD PLAN HD TODAY UF TO DW ENC COMPLIANCE JT NEEDED ECHOCARDIOGRAM RUPALI HASTINGS MD Mar 09, 2020 13:33
[2020-03-09 14:54] VITALS: BP_SYST 66
--- NOTE | 2020-03-09 16:06 | CARD ---
MR#: [id number] Date of Study: 03/09/2020 Ordering Physician: COURTNEY CASAS, Referring Physician: COURTNEY CASAS, Tech: Ailyn Levine [facility] APPROVED REPORT EXAM: Two-dimensional and M-mode echocardiogram with Doppler and color Doppler. Other Information Quality : AverageHR: 76bpm Rhythm : NSR INDICATION Cardiomyopathy RISK FACTORS Hypertension Diabetes 2D DIMENSIONS Left Atrium(2D)3.9 (1.6-4.0cm)IVSd1.8 (0.7-1.1cm) Aortic Root(2D)3.1 (2.0-3.7cm)LVDd4.7 (3.9-5.9cm) PWd1.9 (0.7-1.1cm)LVDs4.1 (2.5-4.0cm) FS (%) 11.7 %SV25.5 ml LVEF(%)25.5 (>50%) Aortic Valve AoV Peak Yung.168.7cm/Helga Peak GR.11.4mmHg LVOT Peak Yung.105.1cm/s Mitral Valve MV E Atzrnhgn93.6cm/sMV A Maracnni217.4cm/s E/A Ratio0.5 Tricuspid Valve TR P. Kehdusjx801mi/sTR Peak Gr.16mmHg LEFT VENTRICLE The left ventricle is normal size. There is mild to moderate concentric left ventricular hypertrophy. The left ventricular systolic function is moderately impaired. The ejection fraction is estimated at 30%. Transmitral Doppler flow pattern is Grade I-abnormal relaxation pattern. RIGHT VENTRICLE The right ventricle is normal size. The right ventricle is borderline hypertrophied. The right ventri cular systolic function is normal. ATRIA The left atrium size is normal. The right atrium size is normal. The interatrial septum is intact wit h no evidence for an atrial septal defect or patent foramen ovale as noted on 2-D or Doppler imaging. AORTIC VALVE The aortic valve is normal in structure and function. Doppler and Color Flow revealed no significant aortic regurgitation. There is no significant aortic valvular stenosis. MITRAL VALVE The mitral valve is normal in structure and function. There is no evidence of mitral valve prolapse. Doppler and Color-flow revealed mild mitral regurgitation. TRICUSPID VALVE The tricuspid valve is normal in structure and function. Doppler and Color Flow revealed trace tricus pid valve regurgitation. There is no tricuspid valve stenosis. PULMONIC VALVE The pulmonary valve is normal in structure and function. Doppler and Color Flow revealed no pulmonic valvular regurgitation. GREAT VESSELS The aortic root is normal in size. The ascending aorta is normal in size. The pulmonary artery is nor mal. The IVC is normal in size and collapses >50% with inspiration. PERICARDIAL EFFUSION There is no evidence of significant pericardial effusion. Critical Notification Critical Value: No <Conclusion> The left ventricular systolic function is moderately impaired. The ejection fraction is estimated at 30%. Mild mitral regurgitation. There is no evidence of significant pericardial effusion. Signed by : Gee Ziegler, Electronically Approved : 03/09/2020 16:06:16
--- NOTE | 2020-03-09 16:09 | DISCH ---
DISCHARGE INSTRUCTIONS Condition on Discharge Condition on Discharge: Stable Activity After Discharge Activity Instructions for Disc: No restrictions Exercise Instruction after Dis: Progress as tolerated Driving Instructions after Dis: Do not drive today Weight Bearing Status after Di: As tolerated Diet after Discharge Diet after Discharge: Renal Dialysis Liquid Texture: Thin Liquid Checks after Discharge Checks after discharge: Check blood press - daily, Weigh Yourself Daily Follow-Up Follow up with: PCP within 1 week of discharge Follow Up With: Wash Operator and cardiology Treatment/Equipment after DC Adaptive Equipment Issued: None PORFIRIO DESHPANDE MD Mar 09, 2020 16:09
--- NOTE | 2020-03-09 16:19 | PDOC ---
PROGRESS NOTES Date of Service: DATE: 03/09/20 TIME: 16:19 Subjective Subjective Feeling better today Objective Objective Vital Signs Date Time Temp Pulse Resp B/P (MAP) Pulse Ox O2 Delivery O2 Flow Rate FiO2 03/09/20 14:54 97.6 66 18 66/ 99 Room Air 97.6 Intake and Output 03/09/20 07:00 Intake Total 1020 ml Output Total 1000 ml Balance 20 ml Intake Oral 1020 ml Output Urine Total 1000 ml # Voids 1 # Bowel Movements 1 Physical Exam Abdomen: Soft Heart: Regular rate Extremities: No edema General: Alert, No acute distress HEENT: Atraumatic, PERRLA Lungs: Clear to auscultation MUSCULOSKELETAL: No deformity, No swelling Neuro: Normal speech Psych/Mental Status: Mood NL Assessment Assessment 1. Lightheadedness and syncope, usually after dialysis. We will consider event monitor as an outpatient. 2. Slightly elevated troponin level, most probably demand ischemia. We will consider ischemic evaluation as an outpatient. 3. Chronic systolic heart failure, 2D echo showed EF 30%. He is clinically well compensated. Plan cardiac cath as outpatiebnt 4. Hypertension: Blood pressure better controlled, continue current meds 5. End-stage renal disease, rejected kidney transplantation in the past. Continue hemodialysis per nephrology team. Plan Plan of Care Problems Medical Problems: (1) Dizziness Status: Acute Comment Review of Relevant I have reviewed the following items stevie (where applicable) has been applied. Medications Current Medications Amlodipine Besylate (Norvasc) 10 mg DAILY PO Last administered on 03/09/20at 13:29; Start 03/09/20 at 09:00 Diphenhydramine HCl (Benadryl) 25 mg 1X PRN PRN IV ITCHING; Start 03/09/20 at 08:15; Stop 03/10/20 at 08:14 Diphenhydramine HCl (Benadryl) 25 mg 1X PRN PRN IV ITCHING; Start 03/09/20 at 08:15; Stop 03/10/20 at 08:14 Info (PHARMACY MONITORING -- do not chart) 1 each PRN DAILY PRN MC SEE COMMENTS; Start 03/09/20 at 08:15 Sodium Chloride 1,000 ml @ 400 mls/hr Q2H30M PRN IV PATENCY; Start 03/09/20 at 08:03; Stop 03/09/20 at 20:02 Sodium Chloride 1,000 ml @ 1,000 mls/hr Q1H PRN IV hypotension; Start 03/09/20 at 08:03; Stop 03/09/20 at 14:02; Status DC Vitals/I & O Vital Sign - Last 24 Hours 03/08/20 03/08/20 03/08/20 03/08/20 17:33 19:00 20:00 23:00 Temp 97.5 97.6 97.5 97.6 Pulse 115 63 68 Resp 20 20 B/P (MAP) 162/82 177/92 (120) 161/95 (117) Pulse Ox 95 100 O2 Delivery Room Air Room Air Room Air 03/09/20 03/09/20 03/09/20 03/09/20 03:00 07:00 08:00 08:07 Temp 97.6 97.7 97.6 97.7 Pulse 77 71 Resp 20 18 B/P (MAP) 172/100 (124) 175/98 (123) Pulse Ox 97 97 100 O2 Delivery Room Air Room Air Room Air Room Air 03/09/20 03/09/20 13:29 14:54 Temp 97.6 97.6 Pulse 88 66 Resp 18 B/P (MAP) 155/81 66/ Pulse Ox 99 O2 Delivery Room Air Intake and Output 03/08/20 03/08/20 03/09/20 15:00 23:00 07:00 Intake Total 520 ml 500 ml Output Total 1000 ml Balance 520 ml -500 ml CHANTELL YATES MD Mar 09, 2020 16:19
--- NOTE | 2020-03-09 18:27 | PDOC ---
F/U PHYSCH PROG NOTE Subjective: Gentleman is seen for routine follow-up. Progress is reviewed with nursing staff. No major event reported overnight. Reportedly he is doing fine. He states, he has no complaints mood is mostly stable. Denies overt depression or anxiety. Denies suicidal or homicidal thoughts. Denies auditory or visual hallucinations. No evidence of manjeet or hypomania. Objective: 14 point review of system is otherwise negative except for stated above. Vital Signs: Vital Signs Date Time Temp Pulse Resp B/P (MAP) Pulse Ox O2 Delivery O2 Flow Rate FiO2 03/09/20 14:54 97.6 66 18 66/ 99 Room Air 97.6 Medications: Current Medications Medications (Trade) Dose Ordered Sig/Olivia Start Time Stop Time Status Last Admin Dose Admin Acetaminophen (Tylenol) 500 mg 1X PRN PRN 03/07/20 11:00 03/07/20 21:00 DC Acetaminophen/ Hydrocodone Bitart (Lortab 5/325) 1 tab PRN Q6HRS PRN 03/06/20 15:15 Al Hydroxide/Mg Hydroxide (Mylanta Plus Xs) 30 ml PRN DAILY PRN 03/06/20 15:15 Albumin Human 200 ml @ 200 mls/hr 1X PRN PRN 03/07/20 11:00 03/07/20 16:59 DC Albuterol Sulfate (Ventolin Neb Soln) 2.5 mg PRN Q4HRS PRN 03/06/20 15:15 Amlodipine Besylate (Norvasc) 10 mg DAILY 03/09/20 09:00 03/09/20 13:29 10 MG Aspirin (Aspirin Chewable) 324 mg 1X ONCE 03/06/20 13:45 03/06/20 13:55 DC 03/06/20 13:45 324 MG Calcium Acetate (Phoslo) 1,334 mg TIDWMEALS 03/06/20 17:00 03/09/20 13:27 1,334 MG Carvedilol (Coreg) 25 mg BIDWMEALS 03/06/20 17:00 03/08/20 17:33 25 MG Clonidine HCl (Catapres) 0.1 mg PRN Q6HRS PRN 03/06/20 15:15 Diphenhydramine HCl (Benadryl) 25 mg 1X PRN PRN 03/09/20 08:15 03/10/20 08:14 Docusate Sodium (Colace) 100 mg PRN BID PRN 03/06/20 15:15 Guaifenesin (Robitussin) 200 mg PRN Q4HRS PRN 03/06/20 15:15 Info (PHARMACY MONITORING -- do not chart) 1 each PRN DAILY PRN 03/09/20 08:15 Lorazepam (Ativan) 0.5 mg PRN Q4HRS PRN 03/06/20 15:15 Ondansetron HCl (Zofran) 4 mg PRN Q4HRS PRN 03/06/20 15:15 Pantoprazole Sodium (Protonix) 40 mg DAILYAC 03/07/20 07:30 03/09/20 07:42 40 MG Sodium Chloride 1,000 ml @ 400 mls/hr Q2H30M PRN 03/09/20 08:03 03/09/20 20:02 Zolpidem Tartrate (Ambien) 5 mg PRN QHS PRN 03/06/20 15:15 03/09/20 00:16 5 MG Physical Exam: Mental Status Exam: -[place] gentleman appears as a stated age Cooperative and interactive Alert and oriented Thought process logical and goal-directed Denies auditory or visual hallucinations. No abnormal perception noted. Denies suicidal or homicidal thoughts. Mood is a stable Affect is slightly constricted Insight is fair Judgment is fair Impulse control is fair Attention span and concentration fair Recent and remote memory intact Physical Exam: Refer to Physician's note. FRENCH LECTURER: No focal deficit MSK: No EPS, TDK, or abnormal involuntary movements Diagnosis: Acute delirium likely hypoactive Unspecified depression, rule out major depressive disorder Assessment: Gentleman who denies past psychiatric history of depression anxiety or mood disorder admitted with confusion. History and symptomatology consistent with acute confusion likely delirium secondary to missing his dialysis appointment. Additionally, he has moments when he gets depressed as he has substantial risk factors to get depressed. However, criteria for depression is not clear. He is not inclined towards psychotropic medications at this point Today he continues to endorse a stable mood. No overt depression or anxiety reported. Plan: Patient has not preferred to take psychotropics at this point. Risks, benefits, alternatives of the treatment are discussed. Risk involved with no treatment are also discussed. He is in agreement with plan and voiced understanding. Psychoeducation provided. Supportive psychotherapy provided. Brief insight oriented psychotherapy provided. Thank you for involving inpatient care REGIS TYSON MD Mar 09, 2020 18:26
--- NOTE | 2020-03-09 19:09 | PDOC3 ---
[facility]-Discharge Summary Date of Admission: Date of Admission: Mar 06, 2020 Date of Discharge: Date of Discharge: Mar 09, 2020 Admission Diagnosis: Admitting Diagnosis: Vasovagal episode Fall from own height Diabetes mellitus type 2 insulin requiring for controlled Orthostasis? Mildly elevation of troponin of no clinical consequence Discharge Diagnosis: Discharge Diagnosis: ESRD- On HD MWF Anemia of chronic disease HTN- H/o FSGS s/p Failed Renal Tx Dizziness/ Fall H/o systolic CH Obsessive thought, confusion Consults: Consults: Nephrology Cardiology Psychiatry Hospital Course: Hospital Course: 45-year-old gentleman with focal glomerulosclerosis with kidney failure in 2007 who underwent a transplant but unfortunately this also failed and rejected it. Patient also has past medical history of asthma hypertension and was in his usual state of health until approximately 2 days prior to his admission. Apparently the patient had an episode of lightheadedness at seems to have been more orthostasis but also could have been vasovagal response. Patient had a fall from own height no evident trauma is noted on the patient at the time of my evaluation. Of note is that he is a poor historian and is not willing to provide much from any details regarding his current condition. He says that he feels weak no headache no blurred vision no slurred speech no focal neurological deficits were reported. No dysphagia odynophagia no chest pain palpitations or shortness of breath was reported by the patient no nausea vomiting diarrhea no abdominal pain no hematochezia has been reported. We have been asked to admit the patient for further evaluation and treatment. Of note is that the patient has a mildly elevated troponin which could be secondary to his underlying kidney disorder. Patient was admitted for further evaluation. Patient was seen by nephrology and he was continue with his regularly scheduled hemodialysis sessions. He was also recommended to undergo an echocardiogram because of his history of CHF. Echo was completed on the day of his discharge and his records will be released to him afterwards so that he can take his medical records to [facility] for further evaluation for renal transplant. Patient also expressed some depressive moods in which she was seen by psychiatry. He was evaluated and determined that he d id not need any psychotropic medications at the time and his mood was stable throughout his hospital stay. There was no SI or HI. The rest of the hospital course was uneventful. Physical exam on discharge day General: Alert, Cooperative Heart: Regular rate Lungs: Clear, Wheezing Disposition: Disposition/Orders: D/C to Home Activity: Activity: Resume previous activity Diet: Diet: Renal Medications: Home Meds Active Scripts [Pantoprazole] 40 MG TABLET.DR Au Conflict Check, 40 MG PO DAILYAC for GERD for 30 Days, #30 2 Refills Prov:COURTNEY CASAS MD 10/05/18 Reported Medications Hydrocodone/Apap 5-325 (NORCO 5-325 TABLET) 1 Each Tablet, 1 TAB PO PRN Q6HRS ME N for PAIN, #20 TAB 0 Refills 01/02/20 Carvedilol (CARVEDILOL) 25 Mg Tablet, 1 TAB PO BID, #180 TAB 1 Refill 12/10/17 Amlodipine Besylate (AMLODIPINE BESYLATE) 5 Mg Tablet, 5 MG PO DAILY, TAB 12/10/17 Calcium Acetate (CALCIUM ACETATE) 667 Mg Tablet, 667 MG PO TIDWMEALS for DIALYSIS PATIENTS, CAP 12/10/17 Scheduled Amlodipine Besylate (Amlodipine Besylate), 5 MG PO DAILY, (Reported) Calcium Acetate (Calcium Acetate), 667 MG PO TIDWMEALS, (Reported) Carvedilol (Carvedilol), 1 TAB PO BID, (Reported) [Pantoprazole], 40 MG PO DAILYAC Scheduled PRN Hydrocodone/Apap 5-325 ([place] 5-325 Tablet), 1 TAB PO PRN Q6HRS PRN for PAIN, (Reported) Total Time: Total Time: Total time spent was 40 minutes in preparing scripts, discharge planning with SWI and RN and preparing this discharge summary Justicifation of Admission Dx: Justifications for Admission: Justification of Admission Dx: Yes PORFIRIO DESHPANDE MD Mar 09, 2020 19:09
--- NOTE | 2020-03-09 19:48 | NUR ---
Pt. d/c'd home w/ family friend around 1814.
== END 2020-03-09 18:15 | disposition home or self-care (01) | DRG 312 ==
LOC: ER 11:49 → 5 NORTH 13:27 → OBSVTOIN 03-08 10:29
PROVIDERS: ADMIT Internal Medicine; ATTEND Internal Medicine
PROC: 5A1D70Z Performance of Urinary Filtration, Intermittent, Less than 6 Hours Per Day (ICD-10-PCS; 2020-03-08)
PROC: 5A1D70Z Performance of Urinary Filtration, Intermittent, Less than 6 Hours Per Day (ICD-10-PCS; principal; 2020-03-09)
DX: R55 Syncope and collapse (principal); N18.6 End stage renal disease; I13.2 Hypertensive heart and chronic kidney disease with heart failure and with stage 5 chronic kidney disease, or end stage renal disease; I50.22 Chronic systolic (congestive) heart failure; Z94.0 Kidney transplant status; I42.9 Cardiomyopathy, unspecified; D63.8 Anemia in other chronic diseases classified elsewhere; F32.9 Major depressive disorder, single episode, unspecified; J45.909 Unspecified asthma, uncomplicated; N26.9 Renal sclerosis, unspecified; Z82.49 Family history of ischemic heart disease and other diseases of the circulatory system; Z83.2 Family history of diseases of the blood and blood-forming organs and certain disorders involving the immune mechanism; Z91.15 Patient's noncompliance with renal dialysis; Z91.19 Patient's noncompliance with other medical treatment and regimen; Z99.2 Dependence on renal dialysis; E21.3 Hyperparathyroidism, unspecified
CPT/HCPCS: 36415; 70450; 71045; 80048; 80053; 84484; 85025; 93005; 93306; 94760; 96374; 99285; G0378; G0379; J2405